=== PATIENT | female | born 1960 | race American Indian/Alaskan Native ===

== ENCOUNTER 2019-03-10 13:25 | Emergency (ER) | payer MEDICARE ==
--- NOTE | 2019-03-10 13:32 | Event Note ---
ED Screening Note Date of service: 03/10/19 Time: 13:29 ED Screening Note: Pt complains itchy, painful eye, and foreign body sensation x 4 days denies contacts unsure if foreign body could be in eye eye crusted shut this morning This initial assessment/diagnostic orders/clinical plan/treatment(s) is/are subject to change based on patients health status, clinical progression and re- assessment by fellow clinical providers in the ED. Further treatment and workup at subsequent clinical providers discretion. Patient/guardian urged not to elope from the ED as their condition may be serious if not clinically assessed and managed. Initial orders include: ACC
[2019-03-10] MEDS ORDERED: carvediloL 6.25 MG TAB PO ONE (16:10)
[2019-03-10] MEDS ORDERED: amLODIPine 5 MG TAB PO ONE (16:10)
[2019-03-10] MEDS ORDERED: ACETAMINOPHEN 325 MG TAB ONE ×2 (17:38→17:40)
[2019-03-10 18:00] VITALS: BP 158/61
--- NOTE | 2019-03-10 18:13 | Emergency Department Report ---
ED Eye Problem HPI - General Chief complaint: Eye Problems Stated complaint: RT EYE INJURY Time Seen by Provider: 03/10/19 13:29 Source: patient Mode of arrival: Ambulatory Limitations: No Limitations - History of Present Illness Initial comments: patient is a 58-year-old female presents emergency room with complaints of right eye irritation that began two days ago. She has associated right eye redness, right eye pain, drainage from the right eye, crusting. Occasionally her right eye feels blurry but she typically wears eyeglasses and does not have them on. Denies any contact lens use. denies getting anything into the eye. she also has a mild headache. She has a past medical history of hypertension and has not taken her medication and approximately 5 days. She states that she just moved here from [place] and did not bring her medications. She states that she takes amlodipine 10 mg daily, atorvastatin 40 mg daily, carvedilol 12.5 mg twice a day, Lasix 20 mg daily, insulin glargine 36 units at bedtime, metformin 1000 mg twice a day. - Related Data Previous Rx's Medication Instructions Recorded Last Taken Type AtorvaSTATin [Lipitor] 40 mg PO QHS #14 tab 03/10/19 Unknown Rx Erythromycin [Erythromycin Ophth 1 applicatio OU QID 7 Days #1 tube 03/10/19 Unknown Rx Oint] Furosemide [Lasix] 20 mg PO QDAY #14 tablet 03/10/19 Unknown Rx Insulin Glargine [Lantus VIAL] 36 units SUB-Q QHS #1 vial 03/10/19 Unknown Rx amLODIPine 10 mg PO DAILY #14 tab 03/10/19 Unknown Rx carvediloL [Coreg] 12.5 mg PO BID #28 tablet 03/10/19 Unknown Rx metFORMIN [Glucophage] 1,000 mg PO BID #28 tablet 03/10/19 Unknown Rx Allergies Allergy/AdvReac Type Severity Reaction Status Date / Time No Known Allergies Allergy Unverified 03/10/19 13:26 ED Review of Systems ROS: Stated complaint: RT EYE INJURY Other details as noted in HPI Comment: All other systems reviewed and negative ED Past Medical Hx - Past Medical History Previous Medical History?: Yes Hx Hypertension: Yes Hx Diabetes: Yes Additional medical history: Sleep apnea, CAD, Gastroparesis, - Surgical History Past Surgical History?: Yes Additional Surgical History: Open heart surgery 03-18-2006 - Social History Smoking Status: Never Smoker Substance Use Type: None - Medications Home Medications: Home Medications Medication Instructions Recorded Confirmed Last Taken Type AtorvaSTATin [Lipitor] 40 mg PO QHS #14 tab 03/10/19 Unknown Rx Erythromycin [Erythromycin Ophth 1 applicatio OU QID 7 Days #1 tube 03/10/19 Unknown Rx Oint] Furosemide [Lasix] 20 mg PO QDAY #14 tablet 03/10/19 Unknown Rx Insulin Glargine [Lantus VIAL] 36 units SUB-Q QHS #1 vial 03/10/19 Unknown Rx amLODIPine 10 mg PO DAILY #14 tab 03/10/19 Unknown Rx carvediloL [Coreg] 12.5 mg PO BID #28 tablet 03/10/19 Unknown Rx metFORMIN [Glucophage] 1,000 mg PO BID #28 tablet 03/10/19 Unknown Rx ED Physical Exam - General Limitations: No Limitations General appearance: alert, in no apparent distress - Head Head exam: Present: atraumatic, normocephalic - Eye Eye exam: Present: PERRL, EOMI, conjunctival injection (right). Absent: scleral icterus, nystagmus, periorbital swelling, periorbital tenderness - ENT ENT exam: Present: mucous membranes moist - Respiratory Respiratory exam: Present: normal lung sounds bilaterally. Absent: respiratory distress, wheezes, rales, rhonchi, stridor, chest wall tenderness, accessory muscle use, decreased breath sounds, prolonged expiratory - Cardiovascular Cardiovascular Exam: Present: regular rate, normal rhythm, normal heart sounds. Absent: systolic murmur, diastolic murmur, rubs, gallop - Neurological Exam Neurological exam: Present: alert, oriented X3 - Psychiatric Psychiatric exam: Present: normal affect, normal mood - Skin Skin exam: Present: warm, dry, intact ED Course Vital Signs 03/10/19 03/10/19 03/10/19 13:29 16:36 16:39 Temperature 98 F Pulse Rate 82 72 72 Respiratory 18 20 Rate Blood Pressure 201/104 187/86 Blood Pressure 187/86 [Right] O2 Sat by Pulse 98 Oximetry 03/10/19 17:59 Temperature Pulse Rate 65 Respiratory 20 Rate Blood Pressure Blood Pressure 158/61 [Right] O2 Sat by Pulse 100 Oximetry ED Medical Decision Making - Medical Decision Making patient is a 58-year-old female presents emergency room with complaints of right eye irritation that began two days ago. She has associated right eye redness, right eye pain, drainage from the right eye, crusting. Occasionally her right eye feels blurry but she typically wears eyeglasses and does not have them on. Denies any contact lens use. denies getting anything into the eye. she also has a mild headache. She has a past medical history of hypertension and has not taken her medication and approximately 5 days. She states that she just moved here from [place] and did not bring her medications. She states that she takes amlodipine 10 mg daily, atorvastatin 40 mg daily, carvedilol 12.5 mg twice a d ay, Lasix 20 mg daily, insulin glargine 36 units at bedtime, metformin 1000 mg twice a day. vitals with elevated blood pressure which improved upon administration of her home medications. on exam: right sided conjunctival injection, PERRL, EOMI. pt given refill of her home medications. pt given prescription for erythromycin ophthalmic ointment. Please use medication as prescribed. Wash your hands frequently. Avoid rubbing the eye. Please follow- up with a primary care doctor in the next 2-3 days for management of your chronic conditions. Please follow-up with an email marketing specialist in the next 2-3 days for a full eye exam and to prevent blindness. Return to the emergency room for any new or worsening symptoms. Critical care attestation.: If time is entered above; I have spent that time in minutes in the direct care of this critically ill patient, excluding procedure time. ED Disposition Clinical Impression: Elevated blood pressure reading, Medication refill Conjunctivitis Qualifiers: Conjunctivitis type: acute Acute conjunctivitis type: unspecified Laterality: right Qualified Code(s): H10.31 - Unspecified acute conjunctivitis, right eye Disposition: DC-01 TO HOME OR SELFCARE Is pt being admited?: No Does the pt Need Aspirin: No Condition: Stable Instructions: Conjunctivitis (ED) Additional Instructions: Please use medication as prescribed. Wash your hands frequently. Avoid rubbing the eye. Please follow-up with a primary care doctor in the next 2-3 days for management of your chronic conditions. Please follow-up with an email marketing specialist in the next 2-3 days for a full eye exam and to prevent blindness. Return to the emergency room for any new or worsening symptoms. Prescriptions: Insulin Glargine [Lantus VIAL] 36 units SUB-Q QHS #1 vial AtorvaSTATin [Lipitor] 40 mg PO QHS #14 tab amLODIPine 10 mg PO DAILY #14 tab carvediloL [Coreg] 12.5 mg PO BID #28 tablet Erythromycin [Erythromycin Ophth Oint] 1 applicatio OU QID 7 Days #1 tube metFORMIN [Glucophage] 1,000 mg PO BID #28 tablet Furosemide [Lasix] 20 mg PO QDAY #14 tablet Referrals: SILAS MEAD MD [Staff Physician] - 2-3 Days [facility] [Outside] - 2-3 Days [facility] [Provider Group] - 2-3 Days AFSANEH DIAZ MD [Staff Physician] - 2-3 Days [facility] [Provider Group] - 2-3 Days Time of Disposition: 18:12 Print Language: MOHAWK
== END 2019-03-10 18:25 | disposition home or self-care (01) ==
LOC: ED 13:25
DX: H10.9 Unspecified conjunctivitis (principal); I10 Essential (primary) hypertension; G47.30 Sleep apnea, unspecified; E11.43 Type 2 diabetes mellitus with diabetic autonomic (poly)neuropathy; K31.84 Gastroparesis; Z79.899 Other long term (current) drug therapy; Z76.0 Encounter for issue of repeat prescription

== ENCOUNTER 2020-01-22 12:32 | Emergency (ER) | payer MEDICARE ==
--- NOTE | 2020-01-22 12:47 | Event Note ---
ED Screening Note Date of service: 01/22/20 Time: 12:46 ED Screening Note: Patient complains of left-sided chest pain starting this morning History of CABG in 2017 and stent placement This initial assessment/diagnostic orders/clinical plan/treatment(s) is/are subject to change based on patients health status, clinical progression and re- assessment by fellow clinical providers in the ED. Further treatment and workup at subsequent clinical providers discretion. Patient/guardian urged not to elope from the ED as their condition may be serious if not clinically assessed and managed. Initial orders include: Labs Chest x-ray EKG
[2020-01-22 13:22] VITALS: BP 142/65
[2020-01-22 13:43] LABS: Basophils % (Auto) 0.6 % (0.0-1.8); Eosinophils # (Auto) 0.1 K/mm3 (0.0-0.4); Eosinophils % (Auto) 1.9 % (0.0-4.3); Hematocrit 36.2 % (30.3-42.9); Hemoglobin 11.8 gm/dl (10.1-14.3); Lymphocytes # (Auto) 2.2 K/mm3 (1.2-5.4); Lymphocytes % (Auto) 36.9 % (13.4-35.0); Mean Corpuscular HGB Conc 33 % (30-34); Mean Corpuscular Volume 88 fl (79-97); Monocytes # (Auto) 0.3 K/mm3 (0.0-0.8); Monocytes % (Auto) 5.7 % (0.0-7.3); Platelet Count 224 K/mm3 (140-440); Red Blood Count 4.14 M/mm3 (3.65-5.03); Red Cell Distribution Width 13.4 % (13.2-15.2)
[2020-01-22 14:03] LABS: Alanine Aminotransferase 10 units/L (7-56); Albumin 3.3 g/dL (3.9-5); BUN/Creatinine Ratio 13; Blood Urea Nitrogen 12 mg/dL (7-17); Calcium 9.1 mg/dL (8.4-10.2); Hemolysis Index 7
[2020-01-22 14:10] LABS: Bacteria,Urine 1+ /HPF (Negative); Bilirubin,Urine NEG (Negative); Blood,Urine NEG (Negative); Color,Urine Straw (Yellow); Mucus,Urine FEW /HPF; Protein,Urine <15 mg/dL mg/dL (Negative); Urobilinogen,Urine < 2.0 mg/dL (<2.0)
[2020-01-22] MEDS ORDERED: ACETAMINOPHEN 325 MG TAB PO ONE (15:13)
--- NOTE | 2020-01-22 15:30 | Cat Scan Report ---
CT HEAD WITHOUT CONTRAST INDICATION / CLINICAL INFORMATION: Headache and right sided sensory disturbance with facial tingling. TECHNIQUE: All CT scans at this location are performed using CT dose reduction for ALARA by means of automated e xposure control. COMPARISON: None available. FINDINGS: HEMORRHAGE: No evidence of intracranial hemorrhage or extra-axial fluid collection. EXTRA-AXIAL SPACES: Cortical sulci, sylvian fissures and basilar cisterns have an unremarkable appear ance. VENTRICULAR SYSTEM: The ventricular system is of normal size and configuration. CEREBRAL PARENCHYMA: No areas of abnormal brain parenchymal attenuation are identified. There is no i ndication of recent infarction. MIDLINE SHIFT OR HERNIATION: There is no mass effect. CEREBELLUM / BRAINSTEM: Brainstem and cerebellum have an unremarkable appearance. MIDLINE STRUCTURES:No abnormalities of the pituitary gland or pineal region are identified. INTRACRANIAL VESSELS:No abnormalities are identified on this noncontrast head CT. ORBITS: visualized portions of the orbits have an unremarkable appearance. SOFT TISSUES of HEAD: No significant abnormality. CALVARIUM: Evaluation of bone windows reveals no abnormalities. PARANASAL SINUSES / MASTOID AIR CELLS: Visualized portions of the right maxillary sinus are opacified . There is opacification of multiple right-sided ethmoid air cells and of the right frontal sinus. Th quang findings suggest the diagnosis of sinusitis secondary to occlusion of the right OMU. IMPRESSION: 1. No intracranial abnormality. 2. Evidence of right frontal, ethmoid and maxillary sinusitis. Signer Name: Estuardo Jacobson MD Signed: 01/22/2020 3:25 PM Workstation Name: [id number]
--- NOTE | 2020-01-22 15:58 | XRay Report ---
CHEST 2 VIEWS INDICATION: Chest Pain. COMPARISON: None. FINDINGS: Support devices: None. Heart: Stable mild cardiomegaly status post previous median sternotomy. Lungs/Pleura: No acute air space or interstitial disease. No significant pleural effusion. IMPRESSION: No acute findings. Signer Name: Darnell Islas MD Signed: 01/22/2020 3:54 PM Workstation Name: [id number]
== END 2020-01-23 12:49 | disposition left against medical advice (07) ==
LOC: ED 12:32
DX: R07.89 Other chest pain (principal); Z53.21 Procedure and treatment not carried out due to patient leaving prior to being seen by health care provider
CPT/HCPCS: 36415; 70450; 71046; 80053; 81001; 82962; 84484; 85025; 87086; 93005

== ENCOUNTER 2021-07-26 17:57 | Emergency (ER) | payer MEDICARE ==
[2021-07-26] MEDS ORDERED: SODIUM CHLORIDE 0.9% 1000 ML 1,000 ML IV ONE (20:27)
--- NOTE | 2021-07-26 21:00 | Emergency Department Report ---
ED Syncope HPI - General Chief Complaint: Syncope Stated Complaint: hyperglyc Time Seen by Provider: 07/26/21 19:35 - History of Present Illness Initial Comments: 60-year-old female with a history of seizure and CAD s/p CABG and DM who now presents with syncope episode that happened while she was shopping. According to patient she check her blood sugar at home and it was above 500 and gave as of 15 units of insulin only to start feeling woozy in front of the snack bar cashier. She turned around feeling that she needed to eat some candy and had a bit then slumped over. She denies any LOC but c/o neck pain and left sided head headache. No other modifying or associated factors reported. - Related Data Allergies/Adverse Reactions: Allergies No Known Allergies Allergy (Unverified 03/10/19 13:26) Home Medications: Ambulatory Orders AtorvaSTATin [Lipitor] 40 mg PO QHS #14 tab 03/10/19 Furosemide [Lasix] 20 mg PO QDAY #14 tablet 03/10/19 Insulin Glargine [Lantus VIAL] 36 units SUB-Q QHS #1 vial 03/10/19 amLODIPine 10 mg PO DAILY #14 tab 03/10/19 carvediloL [Coreg] 12.5 mg PO BID #28 tablet 03/10/19 metFORMIN [Glucophage] 1,000 mg PO BID #28 tablet 03/10/19 ED Review of Systems ROS: Stated complaint: hyperglyc Other details as noted in HPI Comment: All other systems reviewed and negative Cardiovascular: syncope Neurological: weakness ED Past Medical Hx - Past Medical History Hx Hypertension: Yes Hx Diabetes: Yes Additional medical history: Sleep apnea, CAD, Gastroparesis, - Surgical History Additional Surgical History: Open heart surgery 03-18-2006 - Social History Smoking Status: Never Smoker Substance Use Type: Alcohol - Medications Home Medications: Home Medications Medication Instructions Recorded Confirmed Last Taken Type AtorvaSTATin [Lipitor] 40 mg PO QHS #14 tab 03/10/19 07/26/21 07/26/21 Rx Furosemide [Lasix] 20 mg PO QDAY #14 tablet 03/10/19 07/26/21 07/26/21 Rx Insulin Glargine [Lantus VIAL] 36 units SUB-Q QHS #1 vial 03/10/19 07/26/21 07/26/21 Rx amLODIPine 10 mg PO DAILY #14 tab 03/10/19 07/26/21 07/26/21 Rx carvediloL [Coreg] 12.5 mg PO BID #28 tablet 03/10/19 07/26/21 07/26/21 Rx metFORMIN [Glucophage] 1,000 mg PO BID #28 tablet 03/10/19 07/26/21 07/26/21 Rx ED Physical Exam - General Limitations: No Limitations General appearance: alert, in no apparent distress - Eye Eye exam: Present: normal appearance Pupils: Present: normal accommodation - ENT ENT exam: Present: normal exam, normal orophraynx, mucous membranes moist - Neck Neck exam: Present: normal inspection, tenderness (posterior), full ROM. Absent: meningismus - Respiratory Respiratory exam: Present: normal lung sounds bilaterally. Absent: respiratory distress, accessory muscle use - Cardiovascular Cardiovascular Exam: Present: regular rate, normal rhythm, normal heart sounds - GI/Abdominal GI/Abdominal exam: Present: soft, normal bowel sounds. Absent: distended, tenderness - Extremities Exam Extremities exam: Present: normal inspection, normal capillary refill. Absent: full ROM, tenderness - Back Exam Back exam: Present: normal inspection. Absent: tenderness - Neurological Exam Neurological exam: Present: alert, oriented X3 - Psychiatric Psychiatric exam: Present: normal affect, normal mood ED Course Vital Signs 07/26/21 07/26/21 07/26/21 18:55 18:57 19:00 Temperature 98.0 F Pulse Rate 80 Respiratory 17 Rate Blood Pressure 118/59 118/59 Blood Pressure 118/59 [Left] O2 Sat by Pulse 100 97 100 Oximetry 07/26/21 07/26/21 07/26/21 19:16 19:30 19:46 Temperature Pulse Rate 76 75 71 Respiratory 11 L 13 10 L Rate Blood Pressure 118/59 113/64 113/64 Blood Pressure [Left] O2 Sat by Pulse 99 100 100 Oximetry 07/26/21 07/26/21 07/26/21 20:00 20:16 20:30 Temperature Pulse Rate 71 73 69 Respiratory 17 12 14 Rate Blood Pressure 108/63 108/63 128/68 Blood Pressure [Left] O2 Sat by Pulse 99 100 100 Oximetry 07/26/21 07/26/21 20:46 20:50 Temperature Pulse Rate 72 Respiratory 14 Rate Blood Pressure 128/68 Blood Pressure [Left] O2 Sat by Pulse 100 98 Oximetry - Reevaluation(s) Reevaluation #1: 07/26/21 21:04 Here with syncope episode--that could include differentials but not limited to h ypoglycemia, seizure, IA, stroke, and infectious process--so we will go ahead and order routine CBC, CMP, UA for infectious process and get a CT scan of the head for any intracranial abnormality with CT scan of the cervical for any neck injury considering tenderness in posterior neck. We will also rule out cardiac event with initial EKG and troponin. In the meantime we will give 1 L of IV fluid for hydration as this could also be dehydration as a cause. Reevaluation #2: 07/26/21 22:16 CT head scan noted with FINDINGS: No intracranial hemorrhage, mass or midline shift noted. No extra-axial fluid collection or suggestion of acute territorial infarction. Ventricular system and basilar cisterns are unremarkable. Visualized paranasal sinuses show near complete opacification of the right maxillary antrum which was noted on the prior CT from 2019. There is partial opacification of the right ethmoid air cells as well, also chronic. The remainder of the paranasal sinuses and mastoid air cells are grossly clear. No significant calvarial abnormality. No fracture noted. No soft tissue abnormality. IMPRESSION: 1. No acute intracranial abnormality. 2. Chronic opacification of the right ethmoid air cells and right maxillary antrum. CT cervical scan -- with no acute findings 07/26/21 22:21 With normal EKG, and cardiac enzyme and negative CT head and cervical with no acute findings--the presyncope is likely caused by hypoglycemia which was better with eating the candy--patient reassured and DC home to continue current medical treatment and warning given to return to emergency room if symptoms worsen ED Medical Decision Making - Lab Data Result diagrams: 07/26/21 20:49 07/26/21 20:49 - EKG Data -: EKG Interpreted by Me EKG shows normal: sinus rhythm Rate: normal - EKG Data Interpretation: normal EKG 07/26/21 22:20 EKG noted to be with normal sinus rhythm at a rate of 74 bpm, with normal QTC and no ST elevation or depression and is normal ECG. Critical care attestation.: If time is entered above; I have spent that time in minutes in the direct care of this critically ill patient, excluding procedure time. ED Disposition Clinical Impression: Hypoglycemia Episode of syncope Qualifiers: Syncope type: unspecified Qualified Code(s): R55 - Syncope and collapse Disposition: 01 HOME / SELF CARE / HOMELESS Is pt being admited?: No Does the pt Need Aspirin: No Condition: Stable Instructions: Syncope (ED), Near-Syncope, [id number], Hypoglycemia, [id number] Additional Instructions: Increase your daily fluid to help your hydration Call and schedule follow-up with your primary doctor in the next 3 to 5 days for progress Please do not hesitate to call or return to emergency room if your symptoms worsen Referrals: FESTUS COBB MD [Referring] - 3-5 Days Time of Disposition: 22:22
[2021-07-26 21:03] LABS: Basophils # (Auto) 0.1 K/mm3 (0.0-0.1); Basophils % (Auto) 0.8 % (0.0-1.8); Eosinophils # (Auto) 0.2 K/mm3 (0.0-0.4); Eosinophils % (Auto) 3.1 % (0.0-4.3); Hematocrit 36.8 % (30.3-42.9); Hemoglobin 11.6 gm/dl (10.1-14.3); Lymphocytes # (Auto) 2.1 K/mm3 (1.2-5.4); Lymphocytes % (Auto) 33.4 % (13.4-35.0); Mean Corpuscular HGB Conc 32 % (30-34); Mean Corpuscular Volume 86 fl (79-97); Monocytes # (Auto) 0.5 K/mm3 (0.0-0.8); Monocytes % (Auto) 8.3 % (0.0-7.3); Platelet Count 242 K/mm3 (140-440); Red Blood Count 4.27 M/mm3 (3.65-5.03); Red Cell Distribution Width 12.9 % (13.2-15.2)
[2021-07-26 21:20] LABS: Alanine Aminotransferase 39 units/L (7-56); BUN/Creatinine Ratio 17; Blood Urea Nitrogen 17 mg/dL (7-17); Calcium 9.7 mg/dL (8.4-10.2); Hemolysis Index 19
--- NOTE | 2021-07-26 21:25 | Cat Scan Report ---
CT head/brain wo con INDICATION / CLINICAL INFORMATION: fall. TECHNIQUE: Axial CT imaging of the brain was obtained without contrast. Coronal and sagittal reformatted imaging obtained and reviewed. All CT scans at this location are performed using CT dose reduction for ALAR A by means of automated exposure control. COMPARISON: Prior head CT 01/22/2020 FINDINGS: No intracranial hemorrhage, mass or midline shift noted. No extra-axial fluid collection or suggestio n of acute territorial infarction. Ventricular system and basilar cisterns are unremarkable. Visualized paranasal sinuses show near complete opacification of the right maxillary antrum which was noted on the prior CT from 2019. There is partial opacification of the right ethmoid air cells as we ll, also chronic. The remainder of the paranasal sinuses and mastoid air cells are grossly clear. No significant calvarial abnormality. No fracture noted. No soft tissue abnormality. IMPRESSION: 1. No acute intracranial abnormality. 2. Chronic opacification of the right ethmoid air cells and right maxillary antrum. Signer Name: Shefali Posadas MD Signed: 07/26/2021 9:20 PM Workstation Name: [id number]
--- NOTE | 2021-07-26 21:29 | Cat Scan Report ---
CT cervical spine wo con INDICATION / CLINICAL INFORMATION: trauma. TECHNIQUE: Axial CT imaging of cervical spine was obtained without contrast. Coronal and sagittal reformatted im aging obtained and reviewed. All CT scans at this location are performed using CT dose reduction for ALARA by means of automated exposure control. COMPARISON: None available. FINDINGS: Vertebral body heights are maintained. There is mild multilevel degenerative disc disease. Prominent spondylitic changes noted from C2 through C5. Alignment is normal. No fracture noted. Surrounding soft tissues are unremarkable. Visualized lung apices are clear. IMPRESSION: 1. No cervical spine fracture or traumatic malalignment. 2. Moderate spondylitic change. Signer Name: Shefali Posadas MD Signed: 07/26/2021 9:25 PM Workstation Name: [id number]
[2021-07-26] MEDS ORDERED: KETOROLAC 30 MG/1 ML INJ IV ONE (21:36)
[2021-07-26 22:55] VITALS: BP 142/62
--- NOTE | 2021-07-29 11:55 | Electrocardiograph Report ---
[facility] Test Date: 2021-07-26 Test Time: 19:03:08 Pat Name: PATTI DE GUZMAN Department: Room: Gender: F Mailroom Messenger: JENNIFER : [id number] Requested By: SHANNAN SIDHU Order Number: [id number] Reading MD: Savage Eddy Measurements Intervals [place] Rate: 74 P: 28 CT: 148 QRS: 39 QRSD: 77 T: 64 QT: 375 QTc: 415 Interpretive Statements Sinus rhythm No previous ECG available for comparison Electronically Signed On 07-29-2021 11:54:40 EDT by Savage Eddy
== END 2021-07-26 22:55 | disposition home or self-care (01) ==
LOC: ED 17:57
DX: E11.649 Type 2 diabetes mellitus with hypoglycemia without coma (principal); R55 Syncope and collapse; I10 Essential (primary) hypertension; I25.10 Atherosclerotic heart disease of native coronary artery without angina pectoris; G47.30 Sleep apnea, unspecified; Z98.890 Other specified postprocedural states
CPT/HCPCS: 36415; 70450; 72125; 80053; 82962; 84484; 85025; 93005; 96361; 96374; 99284; J1885; J7030

== ENCOUNTER 2021-08-03 20:04 | Observation (INO) | payer MEDICARE ==
[2021-08-03] MEDS ORDERED: NITROGLYCERIN 2% OINT 1 GM TP ONE (21:19)
--- NOTE | 2021-08-03 21:20 | XRay Report ---
CHEST 1 VIEW 08/03/2021 8:12 PM INDICATION / CLINICAL INFORMATION: Chest Pain. COMPARISON: 01/22/20. FINDINGS: SUPPORT DEVICES: None. HEART / MEDIASTINUM: Median sternotomy. Normal heart size and pulmonary vasculature. The aorta is nor mal in caliber. LUNGS / PLEURA: No significant pulmonary or pleural abnormality. No pneumothorax. ADDITIONAL FINDINGS: Mild degenerative changes involving both shoulders, greater on the right. IMPRESSION: No acute abnormality or significant change. Signer Name: Cody Winn MD Signed: 08/03/2021 9:15 PM Workstation Name: [id number]
--- NOTE | 2021-08-03 21:23 | Emergency Department Report ---
HPI - General Chief Complaint: Hypoglycemia Time Seen by Provider: 08/03/21 20:51 - HPI HPI: 3 hours prior to arrival the patient began experiencing headache with malaise and chest discomfort that she describes as a pressure in the middle of her chest that does not radiate associated with nausea diaphoresis and shortness of breath. She denies vomiting fever chills focal weakness headache or any other associated symptoms. The patient has a history of coronary artery disease with 2 stents and took her Plavix today and got [address] to the emergency department via EMS. EMS also gave her 1 nitroglycerin pill that made her feel better with the pain now being from moderate to mild. Nothing makes the pain worse and nitroglycerin makes pain better. ED Past Medical Hx - Past Medical History Previous Medical History?: Yes Hx Hypertension: Yes Hx Diabetes: Yes Additional medical history: Sleep apnea, CAD, Gastroparesis, 2 coronary stents - Surgical History Past Surgical History?: Yes Additional Surgical History: Open heart surgery 03-18-2006 - Social History Smoking Status: Never Smoker Substance Use Type: Alcohol - Medications Home Medications: Home Medications Medication Instructions Recorded Confirmed Last Taken Type AtorvaSTATin [Lipitor] 40 mg PO QHS #14 tab 03/10/19 07/26/21 07/26/21 Rx Furosemide [Lasix] 20 mg PO QDAY #14 tablet 03/10/19 07/26/21 07/26/21 Rx Insulin Glargine [Lantus VIAL] 36 units SUB-Q QHS #1 vial 03/10/19 07/26/21 07/26/21 Rx amLODIPine 10 mg PO DAILY #14 tab 03/10/19 07/26/21 07/26/21 Rx carvediloL [Coreg] 12.5 mg PO BID #28 tablet 03/10/19 07/26/21 07/26/21 Rx metFORMIN [Glucophage] 1,000 mg PO BID #28 tablet 03/10/19 07/26/21 07/26/21 Rx ED Review of Systems ROS: Stated complaint: HYPERGLYCEMIA, CP Other details as noted in HPI All other systems reviewed and negative. Physical Exam - Physical Exam Vital Signs: Vital Signs 08/03/21 08/03/21 08/03/21 20:48 20:55 21:01 Temperature 98.4 F Pulse Rate 75 72 Respiratory 13 17 Rate Blood Pressure 115/47 Blood Pressure 115/47 [Left] O2 Sat by Pulse 100 100 Oximetry 08/03/21 21:02 Temperature Pulse Rate Respiratory Rate Blood Pressure Blood Pressure [Left] O2 Sat by Pulse 98 Oximetry Physical Exam: Physical Exam: Constitutional: AAOX3. No acute distress. No diaphoresis. HENT: Normocephalic. Pupils equal and reactive. No throat edema or erythema. Neck: No neck rigidity or tenderness. Cardiovascular: Heart sounds: No murmur. Normal rate and regular rhythm. Pulses: Intact distal pulses. Lungs: No wheezing or rales. Chest wall: No tenderness. Abdominal: No distension. No mass/pulsatile mass. No abdominal tenderness, guarding nor rebound. Back: No CVA TTP. Musculoskeletal: Normal range of motion. No edema, No calf TTP. Skin: Warm and dry. Neurological: Alert and oriented to person, place, and time. Psychiatric: Mood and affect normal. Normal cognition and memory. Normal j udgement. ED Course Vital Signs 08/03/21 08/03/21 08/03/21 20:48 20:55 21:01 Temperature 98.4 F Pulse Rate 75 72 Respiratory 13 17 Rate Blood Pressure 115/47 Blood Pressure 115/47 [Left] O2 Sat by Pulse 100 100 Oximetry 08/03/21 21:02 Temperature Pulse Rate Respiratory Rate Blood Pressure Blood Pressure [Left] O2 Sat by Pulse 98 Oximetry - Reevaluation(s) Reevaluation #1: 08/03/21 21:22 EKG done at 2020 shows a rate of 75, normal. The rhythm is sinus rhythm, normal. There are no ST or T wave abnormalities. ED Medical Decision Making - Lab Data Result diagrams: 08/03/21 21:15 08/03/21 21:15 Critical care attestation.: If time is entered above; I have spent that time in minutes in the direct care of this critically ill patient, excluding procedure time. ED Disposition Clinical Impression: Chest pain Disposition: 02 SHORT TERM HOSPITAL Is pt being admited?: Yes Does the pt Need Aspirin: No Condition: Stable Instructions: Nonspecific Chest Pain, Adult
[2021-08-03 21:31] LABS: Basophils % (Auto) 0.8 % (0.0-1.8); Eosinophils # (Auto) 0.2 K/mm3 (0.0-0.4); Eosinophils % (Auto) 3.9 % (0.0-4.3); Hematocrit 32.6 % (30.3-42.9); Hemoglobin 10.6 gm/dl (10.1-14.3); Mean Corpuscular HGB Conc 33 % (30-34); Mean Corpuscular Volume 86 fl (79-97); Monocytes # (Auto) 0.4 K/mm3 (0.0-0.8); Monocytes % (Auto) 7.2 % (0.0-7.3); Platelet Count 260 K/mm3 (140-440); Red Blood Count 3.79 M/mm3 (3.65-5.03); Red Cell Distribution Width 13.4 % (13.2-15.2)
[2021-08-03 21:57] LABS: Alanine Aminotransferase 20 units/L (7-56); Albumin 3.3 g/dL (3.9-5); BUN/Creatinine Ratio 21; Blood Urea Nitrogen 25 mg/dL (7-17); Calcium 8.7 mg/dL (8.4-10.2); Hemolysis Index 11
[2021-08-04] MEDS ORDERED: traMADol 50 MG TAB PO PRN (00:21)
[2021-08-04] MEDS ORDERED: MORPHINE 2 MG/1 ML INJ IV PRN (00:21)
[2021-08-04] MEDS ORDERED: NITROGLYCERIN 0.4 MG TAB SUBL SL PRN (00:21)
[2021-08-04] MEDS ORDERED: ACETAMINOPHEN 325 MG TAB PO PRN (00:21)
[2021-08-04] MEDS ORDERED: DEXTROSE 50% IN WATER (25GM) 50 ML SYRINGE IV PRN (00:21)
--- NOTE | 2021-08-04 00:29 | History and Physical Report ---
History of Present Illness Date of examination: 08/04/21 Date of admission: 08/04/21 Chief complaint: Chest pain History of present illness: 60 years old female with past medical history of hypertension, CAD, diabetes, high cholesterol was brought to the emergency room because of 3 hours prior to arrival the patient began experiencing headache with malaise and chest discomfort that she describes as a pressure in the middle of her chest that does not radiate associated with nausea diaphoresis and shortness of breath. She denies vomiting fever chills focal weakness headache or any other associated symptoms. The patient has a history of coronary artery disease with 2 stents and took her Plavix today and got [address] to the emergency department via EMS. EMS also gave her 1 nitroglycerin pill that made her feel better with the pain now being from moderate to mild. Nothing makes the pain worse and nitroglycerin makes pain better. In the emergency room initial cardiac enzyme is negative troponin is 0.010 we will going to admit the patient we will do the serial cardiac enzyme. We will put the patient on chest pain pathway we also do a Lexiscan Past History Past Medical History: CAD, diabetes, hypertension, hyperlipidemia Past Surgical History: Other (To coronary stent Open heart surgery 03-18-2006) Social history: no significant social history Family history: hypertension Medications and Allergies Allergies Allergy/AdvReac Type Severity Reaction Status Date / Time No Known Allergies Allergy Unverified 03/10/19 13:26 Home Medications Medication Instructions Recorded Confirmed Last Taken Type AtorvaSTATin [Lipitor] 40 mg PO QHS #14 tab 03/10/19 07/26/21 07/26/21 Rx Furosemide [Lasix] 20 mg PO QDAY #14 tablet 03/10/19 07/26/21 07/26/21 Rx Insulin Glargine [Lantus VIAL] 36 units SUB-Q QHS #1 vial 03/10/19 07/26/21 07/26/21 Rx amLODIPine 10 mg PO DAILY #14 tab 03/10/19 07/26/21 07/26/21 Rx carvediloL [Coreg] 12.5 mg PO BID #28 tablet 03/10/19 07/26/21 07/26/21 Rx metFORMIN [Glucophage] 1,000 mg PO BID #28 tablet 03/10/19 07/26/21 07/26/21 Rx Active Meds: Active Medications Acetaminophen (Acetaminophen 325 Mg Tab) 650 mg PO Q6H PRN PRN Reason: Pain, Mild (1-3) Aspirin (Aspirin Ec 325 Mg Tab) 325 mg PO QDAY [facility] Atorvastatin Calcium (Atorvastatin 40 Mg Tab) 40 mg PO QHS [facility] Dextrose (Dextrose 50% In Water (25gm) 50 Ml Syringe) 50 ml IV Q30MIN PRN; Protocol PRN Reason: Hypoglycemia Sodium Chloride (Nacl 0.9% 1000 Ml) 1,000 mls @ 100 mls/hr IV DIRECT [facility] Insulin Human Lispro (Insulin Lispro 100 Unit/Ml) 0 unit SUB-Q Q6HR [facility]; Protocol Morphine Sulfate (Morphine 4 Mg/1 Ml Inj) 2 mg IV Q5MIN PRN PRN Reason: Chest Pain unrelieved by NTG Nitroglycerin (Nitroglycerin 0.4 Mg Tab Subl) 0.4 mg SL Q5M PRN PRN Reason: Chest Pain Pantoprazole Sodium (Pantoprazole 40 Mg Tab) 40 mg PO QDAY [facility] Sodium Chloride (Sodium Chloride 0.9% 10 Ml Flush Syringe) 10 ml IV PRN PRN PRN Reason: LINE FLUSH Tramadol HCl (Tramadol 50 Mg Tab) 50 mg PO Q6H PRN PRN Reason: Pain, Moderate (4-6) Review of Systems All systems: negative Constitutional: malaise, other (Headache) Cardiovascular: chest pain, shortness of breath Respiratory: shortness of breath Exam - Constitutional Vitals: Temp Pulse Resp BP Pulse Ox 98.4 F 81 11 L 126/64 100 08/03/21 20:55 08/03/21 23:31 08/03/21 23:31 08/03/21 23:31 08/03/21 23:31 General appearance: Present: no acute distress, well-nourished - EENT Eyes: Present: PERRL ENT: hearing intact, clear oral mucosa - Neck Neck: Present: supple, normal ROM - Respiratory Respiratory effort: normal Respiratory: bilateral: diminished - Cardiovascular Heart Sounds: Present: S1 & S2. Absent: rub, click - Extremities Extremities: pulses symmetrical, No edema Peripheral Pulses: within normal limits - Abdominal General gastrointestinal: Present: soft, non-tender, non-distended, normal bowel sounds Female genitourinary: Present: normal - Integumentary Integumentary: Present: clear, warm, dry - Musculoskeletal Musculoskeletal: gait normal, strength equal bilaterally - Psychiatric Psychiatric: appropriate mood/affect, intact judgment & insight - Neurologic Neurologic: CNII-XII intact, moves all extremities HEART Score - HEART Score Troponin: Troponin T < 0.010 ng/mL (0.00-0.029) 08/03/21 21:15 Results - Labs CBC & Chem 7: 08/03/21 21:15 08/03/21 21:15 Labs: Laboratory Last Values WBC 6.0 K/mm3 (4.5-11.0) 08/03/21 21:15 RBC 3.79 M/mm3 (3.65-5.03) 08/03/21 21:15 Hgb 10.6 gm/dl (10.1-14.3) 08/03/21 21:15 Hct 32.6 % (30.3-42.9) 08/03/21 21:15 MCV 86 fl (79-97) 08/03/21 21:15 MCH 28 pg (28-32) 08/03/21 21:15 MCHC 33 % (30-34) 08/03/21 21:15 RDW 13.4 % (13.2-15.2) 08/03/21 21:15 Plt Count 260 K/mm3 (140-440) 08/03/21 21:15 Lymph % (Auto) 33.0 % (13.4-35.0) 08/03/21 21:15 Worth % (Auto) 7.2 % (0.0-7.3) 08/03/21 21:15 Eos % (Auto) 3.9 % (0.0-4.3) 08/03/21 21:15 Baso % (Auto) 0.8 % (0.0-1.8) 08/03/21 21:15 Lymph # (Auto) 2.0 K/mm3 (1.2-5.4) 08/03/21 21:15 Worth # (Auto) 0.4 K/mm3 (0.0-0.8) 08/03/21 21:15 Eos # (Auto) 0.2 K/mm3 (0.0-0.4) 08/03/21 21:15 Baso # (Auto) 0.0 K/mm3 (0.0-0.1) 08/03/21 21:15 Seg Neutrophils % 55.1 % (40.0-70.0) 08/03/21 21:15 Seg Neutrophils # 3.3 K/mm3 (1.8-7.7) 08/03/21 21:15 Sodium 139 mmol/L (137-145) 08/03/21 21:15 Potassium 4.0 mmol/L (3.6-5.0) 08/03/21 21:15 Chloride 108.1 mmol/L (98-107) H 08/03/21 21:15 Carbon Dioxide 20 mmol/L (22-30) L 08/03/21 21:15 Anion Gap 15 mmol/L 08/03/21 21:15 BUN 25 mg/dL (7-17) H 08/03/21 21:15 Creatinine 1.2 mg/dL (0.6-1.2) 08/03/21 21:15 Estimated GFR 56 ml/min 08/03/21 21:15 BUN/Creatinine Ratio 21 % 08/03/21 21:15 Glucose 223 mg/dL (65-100) H 08/03/21 21:15 POC Glucose 189 mg/dL (70-105) H 08/03/21 20:58 Calcium 8.7 mg/dL (8.4-10.2) 08/03/21 21:15 Total Bilirubin < 0.20 mg/dL (0.1-1.2) 08/03/21 21:15 AST 17 units/L (5-40) 08/03/21 21:15 ALT 20 units/L (7-56) 08/03/21 21:15 Alkaline Phosphatase 92 units/L (35-129) 08/03/21 21:15 Troponin T < 0.010 ng/mL (0.00-0.029) 08/03/21 21:15 NT-Pro-B Natriuret Pep 244.4 pg/mL (0-900) 08/03/21 21:15 Total Protein 6.1 g/dL (6.3-8.2) L 08/03/21 21:15 Albumin 3.3 g/dL (3.9-5) L 08/03/21 21:15 Albumin/Globulin Ratio 1.2 % 08/03/21 21:15 - Imaging and Cardiology Chest x-ray: report reviewed Assessment and Plan VTE prophylaxis?: Chemical Plan of care discussed with patient/family: Yes - Patient Problems (1) ACS (acute coronary syndrome) Current Visit: Yes Status: Acute Plan to address problem: Admit the patient to the medical telemetry. Aspirin 325 mg p.o. daily. Lipitor 40 mg p.o. daily. Nitroglycerin as needed. We do the serial cardiac enzymes. We also do a Lexiscan. If needed consult cardiology in the morning (2) Diabetes Current Visit: Yes Status: Acute Plan to address problem: Accu-Chek every 6 hours with moderate dose Humalog coverage. Diabetic education. Recheck BMP in the morning (3) Hypertension Current Visit: Yes Status: Acute Plan to address problem: Amlodipine 10 mg p.o. daily. Hydralazine 10 mg IV every 6 hours as needed. We continue the home medication (4) High cholesterol Current Visit: Yes Status: Acute Plan to address problem: Peter 40 mg daily. We recheck the lipid panel. (5) CAD (coronary artery disease) Current Visit: Yes Status: Acute Plan to address problem: Aspirin 325 mg p.o. daily. Lipitor 40 mg p.o. daily. Coreg 12.5 mg p.o. twice daily (6) Hypoglycemia Current Visit: No Status: Acute Plan to address problem: Patient actually hyperglycemic. We will put the patient on insulin sliding scale Humalog coverage moderate dose coverage as. Diabetic education (7) DVT prophylaxis Current Visit: Yes Status: Acute Plan to address problem: Heparin 5000 units subcu every 12 hours for DVT prophylaxis. Protonix 40 mg p.o. daily for GI prophylaxis. Patient is a full code
[2021-08-04] MEDS ORDERED: SODIUM CHLORIDE 0.9% 1000 ML 1,000 ML IV SCH (00:30)
[2021-08-04 07:28] LABS: Basophils # (Auto) 0.1 K/mm3 (0.0-0.1); Eosinophils # (Auto) 0.2 K/mm3 (0.0-0.4); Eosinophils % (Auto) 3.8 % (0.0-4.3); Hematocrit 33.6 % (30.3-42.9); Hemoglobin 10.6 gm/dl (10.1-14.3); Lymphocytes # (Auto) 2.3 K/mm3 (1.2-5.4); Lymphocytes % (Auto) 43.1 % (13.4-35.0); Mean Corpuscular HGB Conc 32 % (30-34); Mean Corpuscular Volume 87 fl (79-97); Monocytes # (Auto) 0.5 K/mm3 (0.0-0.8); Monocytes % (Auto) 8.6 % (0.0-7.3); Platelet Count 251 K/mm3 (140-440); Red Blood Count 3.89 M/mm3 (3.65-5.03); Red Cell Distribution Width 13.4 % (13.2-15.2)
[2021-08-04] MEDS ORDERED: REGADENOSON 0.4 MG/5 ML INJ IV ONE (07:30)
[2021-08-04 07:54] LABS: BUN/Creatinine Ratio 25; Blood Urea Nitrogen 28 mg/dL (7-17); Calcium 8.7 mg/dL (8.4-10.2); Hemolysis Index 8
[2021-08-04] MEDS ORDERED: carvediloL 12.5 MG TAB PO SCH (08:00)
[2021-08-04] MEDS ORDERED: FUROSEMIDE 20 MG TAB PO SCH (10:00)
[2021-08-04] MEDS ORDERED: amLODIPine 10 MG TAB PO SCH (10:00)
[2021-08-04] MEDS ORDERED: HEPARIN 5,000 UNIT/1 ML VIAL SUB-Q SCH (10:00)
[2021-08-04] MEDS ORDERED: PANTOPRAZOLE 40 MG TAB PO SCH (10:00)
--- NOTE | 2021-08-04 10:43 | Electrocardiograph Report ---
[facility] Test Date: 2021-08-03 Test Time: 20:21:39 Pat Name: PATTI DE GUZMAN Department: Room: A474 Gender: F Therapist Phys: MARKO : [id number] Requested By: VIBHA HA Order Number: [id number] Reading MD: Kaleb Paz Measurements Intervals [place] Rate: 75 P: 32 [place]: 136 QRS: 70 QRSD: 88 T: 37 QT: 398 QTc: 445 Interpretive Statements Sinus rhythm Compared to ECG 07/26/2021 19:03:08 No significant changes Electronically Signed On 08-04-2021 10:43:14 EDT by Kaleb Paz
[2021-08-04 12:35] VITALS: BP 153/66
[2021-08-04] MEDS: INSULIN LISPRO 100 UNIT/ML SUB-Q SCH ×2 (12:45→12:59)
--- NOTE | 2021-08-04 14:39 | Discharge Summary ---
Providers - Providers Date of Admission: 08/04/21 00:21 Date of discharge: 08/04/21 Attending physician: SUSHILA ESPINOZA MD 08/04/21 Consult to Cardiac Rehabilitation [CONS] Routine Reason For Exam: Phase I 08/04/21 00:21 Consult to Dietitian/Nutrition [CONS] Routine Physician Instructions: Reason For Exam: Reason for Consult: Diet education Primary care physician: PSYCHOLOGIST CHIEF Hospitalization Reason for admission: Chest painruled out, musculoskeletal pain Condition: Stable Pertinent studies: Reviewed. Procedures: Myocardial stress test Hospital course: Patient is a 60-year-old female past medical history of hypertension, sleep apnea, CAD status post CABG (2006) and PCI x2, and insulin-dependent type 2 diabetes mellitus with hyperglycemia who presented to the ED with chest pressure that does not radiate to her chin, shoulder, arm, or back. Patient endorsed her chest pressure being associated with nausea, diaphoresis, and shortness of breath. Patient endorsed taking her Plavix and [address] to the emergency department in addition to 1 nitroglycerin. With further questioning, the patient endorsed not being compliant with her medications. In the ED patient was found to be hemodynamically stable with nonspecific ST changes on EKG, unremarkable troponins x2, and stable vitals. Patient was admitted for management of chest pain work-up. Cardiology was consulted, and the patient underwent myocardial stress test that was found to be unremarkable. The patient was counseled at length about the importance of medication compliance, and the hospitalist set up daily alarms on her phone. Due to concerns for hypoglycemia (based on the patient's description after taking insulin at home), the patient was counseled to hold her insulin administration and to follow-up with her PCP this week. The patient expressed understanding. Patient is medically clear for discharge. Disposition: 01 HOME / SELF CARE / HOMELESS Final Discharge Diagnosis (Prints w/discharge instructions): Musculoskeletal pain, GERD, insulin-dependent type 2 diabetes mellitus with hyperglycemia, hypertension, hyperlipidemia, medication noncompliance, CAD status post PCI x2 Time spent for discharge: 45 min Core Measure Documentation - Palliative Care Palliative Care/ Comfort Measures: Not Applicable - Core Measures Any of the following diagnoses?: history only Exam - Constitutional Vitals: Temp Pulse Resp BP Pulse Ox 97.5 F L 65 18 153/66 100 08/04/21 11:10 08/04/21 11:10 08/04/21 11:10 08/04/21 11:10 08/04/21 11:10 General appearance: Present: no acute distress, well-nourished - EENT Eyes: Present: PERRL, EOM intact ENT: hearing intact, clear oral mucosa, dentition normal - Neck Neck: Present: supple, normal ROM - Respiratory Respiratory effort: normal Respiratory: bilateral: diminished - Cardiovascular Rhythm: regular Heart Sounds: Present: S1 & S2 - Extremities Extremities: no ischemia, pulses intact, pulses symmetrical, No edema, normal temperature, normal color, Full ROM Peripheral Pulses: within normal limits - Abdominal General gastrointestinal: Present: soft, non-tender, non-distended, normal bowel sounds Female genitourinary: Present: deferred - Rectal Rectal Exam: deferred - Integumentary Integumentary: Present: clear, warm, dry - Musculoskeletal Musculoskeletal: strength equal bilaterally - Psychiatric Psychiatric: appropriate mood/affect, cooperative, other (Low insight regarding medical conditions) - Neurologic Neurologic: CNII-XII intact, moves all extremities - Allied Health Allied health notes reviewed: nursing Plan Activity: advance as tolerated Diet: low salt, diabetic Additional Instructions: Patient is a 60-year-old female past medical history of hypertension, sleep apnea, CAD status post CABG (2006) and PCI x2, and insulin- dependent type 2 diabetes mellitus with hyperglycemia who presented to the ED with chest pressure that does not radiate to her chin, shoulder, arm, or back. Patient endorsed her chest pressure being associated with nausea, diaphoresis, and shortness of breath. Patient endorsed taking her Plavix and [address] to the emergency department in addition to 1 nitroglycerin. With further questioning, the patient endorsed not being compliant with her medications. In the ED patient was found to be hemodynamically stable with nonspecific ST changes on EKG, unremarkable troponins x2, and stable vitals. Patient was admitted for management of chest pain work-up. Cardiology was consulted, and the patient underwent myocardial stress test that was found to be unremarkable. The patient was counseled at length about the importance of medication compliance, and the hospitalist set up daily alarms on her phone. Due to concerns for hypoglycemia (based on the patient's description after taking insulin at home), the patient was counseled to hold her insulin adminis tration and to follow-up with her PCP this week. The patient expressed understanding. Patient is medically clear for discharge. Care Plan Goals: Patient is medically clear for discharge. Assessment: Patient is a 60-year-old female past medical history of hypertension, sleep apnea, CAD status post CABG (2006) and PCI x2, and insulin-dependent type 2 diabetes mellitus with hyperglycemia who presented to the ED with chest pressure that does not radiate to her chin, shoulder, arm, or back. Patient endorsed her chest pressure being associated with nausea, diaphoresis, and shortness of breath. Patient endorsed taking her Plavix and [address] to the emergency department in addition to 1 nitroglycerin. With further questioning, the patient endorsed not being compliant with her medications. In the ED patient was found to be hemodynamically stable with nonspecific ST changes on EKG, unremarkable troponins x2, and stable vitals. Patient was admitted for management of chest pain work-up. Cardiology was consulted, and the patient underwent myocardial stress test that was found to be unremarkable. The patient was counseled at length about the importance of medication compliance, and the hospitalist set up daily alarms on her phone. Due to concerns for hypoglycemia (based on the patient's description after taking insulin at home), the patient was counseled to hold her insulin administration and to follow-up with her PCP this week. The patient expressed understanding. Patient is medically clear for discharge. Follow up with: PRIMARY CARE, [Primary Care Provider] - 3-5 Days Prescriptions: AtorvaSTATin [Lipitor] 40 mg PO QHS #30 tab amLODIPine 10 mg PO DAILY #14 tab carvediloL [Coreg] 12.5 mg PO BID #60 tablet metFORMIN [Glucophage] 1,000 mg PO BID #60 tablet Aspirin EC [Halfprin EC] 81 mg PO QDAY #30 tablet Furosemide [Lasix TAB] 20 mg PO QDAY #30 tablet Pantoprazole [Protonix TAB] 40 mg PO QDAY #30 tablet
[2021-08-04] MEDS ORDERED: INSULIN REGULAR, HUMAN 100 UNITS/1 ML SUB-Q ONE (15:18)
--- NOTE | 2021-08-05 08:56 | Nuclear Medicine Report ---
APPROVED REPORT Exam: Nuclear Stress Test Indication: Chest pain [facility] #: A467 Ht: 5 ft 2 in Wt: 138 lbs BSA: 1.63 m2 HR: 55 bpmBP: 154/66 mmHgBMI: 25.23 Rhythm: Sinus Bradycardia Stress Test Details Stress Test: Pharmacologic stress testing performed using 0.4 mg of regadenoson per 5 mL given IV over 10 seconds. Reason for pharmacologic stress test: physical limitation. HR Resting HR: 56 bpm Max HR Achieved: 108 bpm Max Heart Rate (APMHR): 162.867825 bpm Target HR (85% APMHR): 137.870814 bpm % of APMHR: 66.67 HR response to stress: Normal HR response to stress BP Resting BP: 130/66 mmHg Max BP: 154/82 mmHg Recovery BP: 139/71 mmHg BP response to stress: Normal blood pressure response to stress. ECG Resting ECG: Sinus Bradycardia Stress ECG: Sinus Tachycardia Arrhythmia: None Recovery ECG: Sinus Rhythm Recovery Arrhythmia: None Clinical Reason for Termination: Completed protocol Stress Symptoms: None NM EXAM: Myocardial Perfusion REST/STRESS Imaging Protocol: Rest Tc-99m/Stress Tc-99m 1 day Resting Data Rest SPECT myocardial perfusion imaging was performed in supine position 45 minutes following the intravenous injection of 10 mCi of Tc-99m Myoview. Time of rest injection: 0700 Pharmacologic Stress Pharmacologic stress test was performed by injecting Regadenoson 0.4 mg IV push followed by the intravenous injection of 28 mCi of Tc-99m Myoview. Time of stress injection: 09:23:41 Gated Stress SPECT was performed 30 minutes after stress injection. The images were gated to evaluate regional wall motion and calculate left ventricular ejection fraction. Study Quality Study: excellent Lung Uptake: Normal Study Data TID = 1.15. Perfusion Wall Motion The rest and stress images show normal left ventricular wall motion. Nuclear Conclusion ECG Findings: negative for ischemia Clinical Findings: negative for ischemia Nuclear Findings: negative for ischemia Exercise Capacity: not assessed Left Ventricular Function: normal Normal study. No scintigraphic evidence for myocardial ischemia or scar. Normal left ventricular size and function with no regional wall motion abnormalities. No change since prior study dated .
--- NOTE | 2021-08-05 09:05 | Electrocardiograph Report ---
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
[2021-08-05] MEDS ORDERED: ASPIRIN EC 81 MG TAB PO SCH (10:00)
[2021-08-05] MEDS ORDERED: ASPIRIN EC 325 MG TAB PO SCH ×2 (10:00)
== END 2021-08-04 16:45 | disposition home or self-care (01) ==
LOC: ED 20:04 → 4A 08-04 00:21 → INTOOBSV 08-04 00:21 → 4A 08-04 10:08
PROVIDERS: ADMIT Hospitalist; ATTEND Student in an Organized Health Care Education/Training Program
DX: R07.89 Other chest pain (principal); I24.9 Acute ischemic heart disease, unspecified; I10 Essential (primary) hypertension; I25.10 Atherosclerotic heart disease of native coronary artery without angina pectoris; E11.65 Type 2 diabetes mellitus with hyperglycemia; E11.649 Type 2 diabetes mellitus with hypoglycemia without coma; E78.5 Hyperlipidemia, unspecified; E78.00 Pure hypercholesterolemia, unspecified; K31.84 Gastroparesis; K21.9 Gastro-esophageal reflux disease without esophagitis; G47.30 Sleep apnea, unspecified; Z95.1 Presence of aortocoronary bypass graft; Z79.899 Other long term (current) drug therapy; Z98.890 Other specified postprocedural states; Z79.4 Long term (current) use of insulin; Z79.84 Long term (current) use of oral hypoglycemic drugs; Z79.82 Long term (current) use of aspirin; Z91.14 Patient's other noncompliance with medication regimen
CPT/HCPCS: 36415; 71045; 78452; 80048; 80053; 82962; 83036; 83880; 84484; 85025; 85379; 93005; 93017; 96372; 96374; 99285; A9502; G0378; J1644; J2270; J2785; Q9967; J1815

== ENCOUNTER 2021-09-29 15:54 | Inpatient (IN) | payer MEDICARE ==
--- NOTE | 2021-09-29 18:19 | Event Note ---
ED Screening Note ED Screening Note: Patient came to the ER via EMS complaining of numbness and tingling. She was triaged by IV charge nurse in main ER. At 1820 she is at the desk complaining of her weight being so long. She has no focal deficit. Screening orders placed This initial assessment/diagnostic orders/clinical plan/treatment(s) is/are subject to change based on patients health status, clinical progression and re- assessment by fellow clinical providers in the ED. Further treatment and workup at subsequent clinical providers discretion. Patient/guardian urged not to elope from the ED as their condition may be serious if not clinically assessed and managed. Initial orders include:
[2021-09-29 19:20] LABS: Basophils % (Auto) 0.9 % (0.0-1.8); Eosinophils # (Auto) 0.2 K/mm3 (0.0-0.4); Eosinophils % (Auto) 2.9 % (0.0-4.3); Hematocrit 36.5 % (30.3-42.9); Hemoglobin 11.9 gm/dl (10.1-14.3); Lymphocytes # (Auto) 2.3 K/mm3 (1.2-5.4); Lymphocytes % (Auto) 41.6 % (13.4-35.0); Mean Corpuscular HGB Conc 33 % (30-34); Mean Corpuscular Volume 86 fl (79-97); Monocytes # (Auto) 0.3 K/mm3 (0.0-0.8); Platelet Count 252 K/mm3 (140-440); Red Blood Count 4.25 M/mm3 (3.65-5.03); Red Cell Distribution Width 13.1 % (13.2-15.2)
[2021-09-29 19:41] LABS: Alanine Aminotransferase 13 units/L (7-56); Albumin 3.7 g/dL (3.9-5); BUN/Creatinine Ratio 17; Blood Urea Nitrogen 15 mg/dL (7-17); Calcium 9.3 mg/dL (8.4-10.2); Hemolysis Index 1
--- NOTE | 2021-09-29 19:48 | Cat Scan Report ---
CT HEAD WITHOUT CONTRAST INDICATION / CLINICAL INFORMATION: LEFT SIDE TINGLING. Left-sided weakness. Symptoms began on the afternoon of 09/29/2021 TECHNIQUE: All CT scans at this location are performed using CT dose reduction for ALARA by means of automated e xposure control. COMPARISON: Head CT 07/26/2021 FINDINGS: HEMORRHAGE: No evidence of intracranial hemorrhage or extra-axial fluid collection. EXTRA-AXIAL SPACES: Cortical sulci, sylvian fissures and basilar cisterns have an unremarkable appear ance. VENTRICULAR SYSTEM: The third and lateral ventricles are of normal size and configuration. CEREBRAL PARENCHYMA: No areas of abnormal brain parenchymal attenuation are identified. There is no i ndication of recent infarction. MIDLINE SHIFT OR HERNIATION: There is no mass effect. CEREBELLUM / BRAINSTEM: Brainstem and cerebellum have an unremarkable appearance. MIDLINE STRUCTURES:No abnormalities of the pituitary gland or pineal region are identified. INTRACRANIAL VESSELS:No abnormalities are identified on this noncontrast head CT. ORBITS: visualized portions of the orbits have an unremarkable appearance. SOFT TISSUES of HEAD: No significant abnormality. CALVARIUM: Evaluation of bone windows reveals no abnormalities. PARANASAL SINUSES / MASTOID AIR CELLS: Persistent opacification of the right maxillary sinus is noted . Persistent opacification of right-sided ethmoid air cells. Visualized portions of the paranasal sin uses are otherwise free from inflammatory mucosal disease. Mastoid air cells are normally pneumatized . ADDITIONAL FINDINGS: None. IMPRESSION: 1. No acute intracranial abnormality. 2. Persistent inflammatory changes in the right maxillary sinus and right-sided ethmoid air cells. Signer Name: Estuardo Jacobson MD Signed: 09/29/2021 7:43 PM Workstation Name: [id number]
--- NOTE | 2021-09-29 23:39 | Emergency Department Report ---
- General Chief complaint: Hyperglycemia Stated complaint: HTN/HYPERGLYCEMIA Source: patient, EMS Mode of arrival: Stretcher Limitations: No Limitations - History of Present Illness Initial comments: 60-year-old female no history of TIA, diabetes, hypertension, CAD with coronary stents, presents to the emergency department with numbness or weakness of extremity. Patient reports at 1 PM she woke up with the left side of her face feeling numb, with jaw pain, left arm pain, left leg pain. States she has had similar episodes in the past but the numbness would resolve however today the numbness has persisted, while she has been in the lobby waiting she is now experiencing difficulty walking with dizziness. States she feels like the left side of her "face is ", her left arm and left leg are both weak, she had to be assisted back to the treatment area in a wheelchair. She denies chest pain, no shortness of breath, no fever or chills, no cough cold congestion, no vision changes. She denies drug or alcohol use Dr. Star Galindo is a primary care provider MD Complaint: numbness, tingling, difficulty walking -: Sudden, hour(s) Location: LUE, LLE, L face Quality: numbness, sharp Consistency: constant Improves with: none Worsens with: none - Related Data Previous Rx's Medication Instructions Recorded Last Taken Type Insulin Glargine [Lantus VIAL] 36 units SUB-Q QHS #1 vial 03/10/19 07/26/21 Rx Aspirin EC [Halfprin EC] 81 mg PO QDAY #30 tablet 08/04/21 Unknown Rx AtorvaSTATin [Lipitor] 40 mg PO QHS #30 tab 08/04/21 Unknown Rx Furosemide [Lasix TAB] 20 mg PO QDAY #30 tablet 08/04/21 Unknown Rx Pantoprazole [Protonix TAB] 40 mg PO QDAY #30 tablet 08/04/21 Unknown Rx amLODIPine 10 mg PO DAILY #14 tab 08/04/21 Unknown Rx carvediloL [Coreg] 12.5 mg PO BID #60 tablet 08/04/21 Unknown Rx metFORMIN [Glucophage] 1,000 mg PO BID #60 tablet 08/04/21 Unknown Rx Allergies Allergy/AdvReac Type Severity Reaction Status Date / Time No Known Allergies Allergy Verified 09/29/21 17:23 ED Review of Systems ROS: Stated complaint: HTN/HYPERGLYCEMIA Other details as noted in HPI Comment: All other systems reviewed and negative Constitutional: no symptoms reported Eyes: denies: as per HPI Respiratory: no symptoms reported. denies: cough Cardiovascular: denies: chest pain, palpitations Endocrine: no symptoms reported Gastrointestinal: denies: abdominal pain, nausea, vomiting Musculoskeletal: denies: back pain, myalgia Skin: as per HPI Neurological: weakness, numbness, paresthesias, abnormal gait. denies: confusion Psychiatric: as per HPI. denies: auditory hallucinations, visual hallucinations ED Past Medical Hx - Past Medical History Hx Hypertension: Yes Hx Diabetes: Yes Additional medical history: Sleep apnea, CAD, Gastroparesis, 2 coronary stents - Surgical History Additional Surgical History: Open heart surgery 03-18-2006 - Social History Smoking Status: Never Smoker Substance Use Type: Alcohol - Medications Home Medications: Home Medications Medication Instructions Recorded Confirmed Last Taken Type Insulin Glargine [Lantus VIAL] 36 units SUB-Q QHS #1 vial 03/10/19 07/26/21 07/26/21 Rx Aspirin EC [Halfprin EC] 81 mg PO QDAY #30 tablet 08/04/21 Unknown Rx AtorvaSTATin [Lipitor] 40 mg PO QHS #30 tab 08/04/21 Unknown Rx Furosemide [Lasix TAB] 20 mg PO QDAY #30 tablet 08/04/21 Unknown Rx Pantoprazole [Protonix TAB] 40 mg PO QDAY #30 tablet 08/04/21 Unknown Rx amLODIPine 10 mg PO DAILY #14 tab 08/04/21 Unknown Rx carvediloL [Coreg] 12.5 mg PO BID #60 tablet 08/04/21 Unknown Rx metFORMIN [Glucophage] 1,000 mg PO BID #60 tablet 08/04/21 Unknown Rx ED Physical Exam - General Limitations: Physical Limitation General appearance: alert - Head Head exam: Present: other (Left-sided mild droop) - Eye Eye exam: Present: normal appearance Pupils: Present: normal accommodation - ENT ENT exam: Present: normal exam, normal orophraynx - Neck Neck exam: Present: normal inspection. Absent: tenderness - Respiratory Respiratory exam: Present: normal lung sounds bilaterally. Absent: respiratory distress, wheezes, chest wall tenderness, accessory muscle use - Cardiovascular Cardiovascular Exam: Present: regular rate, normal rhythm - GI/Abdominal GI/Abdominal exam: Present: soft. Absent: distended, tenderness - Extremities Exam Extremities exam: Present: normal inspection, full ROM - Neurological Exam Neurological exam: Present: alert, oriented X3, abnormal gait, motor sensory deficit - Expanded Neurological Exam Expanded Neurological exam: Absent: total aphasia Patient oriented to: Present: person, place, time Speech: Present: fluid speech Cranial nerves: EOM's Intact: Normal, Gag Reflex: Normal, Tongue Deviation: Normal, Nystagmus: Normal, Facial Sensation: Abnormal Left - Level of Consciousness 1a. Level of Consciousness: alert/keenly responsive - LOC Questions 1b. LOC Questions: answers both correctly - LOC Command 1c. LOC Commands: performs tasks correctly - Best Gaze 2. Best Gaze: normal - Visual 3. Visual: no visual loss - Facial Palsy 4. Facial Palsy: minor paralysis - Motor Arm 5a. Motor Arm Left: drift 5b. Motor Arm Right: no drift - Motor Leg 6a. Motor Leg Left: drift 6b. Motor Leg Right: no drift - Limb Ataxia 7. Limb Ataxia: present 2 limbs - Sensory 8. Sensory: mild/moderate sensory loss - Best Language 9. Best Language: no aphasia - Dysarthria 10. Dysarthria: normal - Extinction and Inattention 11. Extinction/Inattention: no abnormality - Scoring Total Score: 6 Stroke Severity: Moderate Stroke ED Course Vital Signs 09/29/21 09/30/21 09/30/21 17:20 00:02 02:32 Temperature 98.9 F 98.9 F 98.5 F Pulse Rate 87 65 59 L Respiratory 18 18 20 Rate Blood Pressure 226/75 Blood Pressure 184/70 175/71 225/76 [Left] O2 Sat by Pulse 99 100 100 Oximetry - Reevaluation(s) Reevaluation #1: 09/29/21 23:20 Notify charge nurse Brandt patient is to be placed in the main ED going to bed with a cardiac rehabilitation program director, she needs a stat neuro consult, neuro consult, neuro assessment, with plan for admission. ED Medical Decision Making - Lab Data Result diagrams: 09/29/21 18:46 09/29/21 18:46 - Medical Decision Making 60-year-old female who was placed in the emergency care area initially for hypoglycemia upon my evaluation patient noted to have left-sided facial numbness weakness of the extremity difficulty walking. NIH of 6, last known well was 1300 on 09/29/[address] of the head was negative for acute bleed. However based on patient's symptoms, neuro consult admission. For further work-up. Care handed off to ED attending Dr. Pennington who would manage patient at this time Critical care attestation.: If time is entered above; I have spent that time in minutes in the direct care of this critically ill patient, excluding procedure time. ED Disposition Clinical Impression: Left facial numbness, Left upper extremity numbness, Left leg numbness, Left u pper limb pain, Pain in left lower leg CVA (cerebral vascular accident) Qualifiers: CVA mechanism: unspecified Qualified Code(s): I63.9 - Cerebral infarction, unspecified Disposition: 30 STILL A PATIENT Is pt being admited?: Yes Does the pt Need Aspirin: Yes Condition: Stable Referrals: PRIMARY CARE, [Primary Care Provider] - 3-5 Days
[2021-09-30 02:24] LABS: INR 0.85 (0.87-1.13)
[2021-09-30] MEDS ORDERED: ASPIRIN 325 MG TAB PO ONE (02:26)
--- NOTE | 2021-09-30 02:47 | Emergency Department Report ---
ED Neuro Deficit HPI - General Chief Complaint: Neuro Symptoms/Deficit Stated Complaint: HTN/HYPERGLYCEMIA Source: patient, EMS Mode of arrival: Stretcher Limitations: Physical Limitation - History of Present Illness Initial Comments: Ms Rios is a 60-year-old female with history of mini stroke in the past about 2 years ago, DM, HTn and CAD s/p stents brought to the main ED for neuro workup. According to patient her symptoms started when she got up from sleep around 1300 PM yesterday and progressively getting worse. She also mentioned that she is having problem walking at this time. Pt was initially seen by the midlevel provider who has had note on the patient and have had CT head and routine labs ordered. CT brain did not show any acute intracranial abnormality and labs were within normal limits except hyperglycemia. Pt denies any CP, SOB or Palpitation. Pt however also mentioned abdominal discomforts that is much better at this time. No other modifying or associated factors reported. - Related Data Home Medications: Previous Rx's Medication Instructions Recorded Last Taken Type Insulin Glargine [Lantus VIAL] 36 units SUB-Q QHS #1 vial 03/10/19 07/26/21 Rx Aspirin EC [Halfprin EC] 81 mg PO QDAY #30 tablet 08/04/21 Unknown Rx AtorvaSTATin [Lipitor] 40 mg PO QHS #30 tab 08/04/21 Unknown Rx Furosemide [Lasix TAB] 20 mg PO QDAY #30 tablet 08/04/21 Unknown Rx Pantoprazole [Protonix TAB] 40 mg PO QDAY #30 tablet 08/04/21 Unknown Rx amLODIPine 10 mg PO DAILY #14 tab 08/04/21 Unknown Rx carvediloL [Coreg] 12.5 mg PO BID #60 tablet 08/04/21 Unknown Rx metFORMIN [Glucophage] 1,000 mg PO BID #60 tablet 08/04/21 Unknown Rx Allergies/Adverse Reactions: Allergies Allergy/AdvReac Type Severity Reaction Status Date / Time No Known Allergies Allergy Verified 09/29/21 17:23 ED Review of Systems ROS: Stated complaint: HTN/HYPERGLYCEMIA Other details as noted in HPI Comment: All other systems reviewed and negative Constitutional: no symptoms reported Eyes: denies: as per HPI Respiratory: no symptoms reported. denies: cough Cardiovascular: denies: chest pain, palpitations Endocrine: no symptoms reported Gastrointestinal: denies: abdominal pain, nausea, vomiting Musculoskeletal: denies: back pain, myalgia Skin: as per HPI Neurological: weakness, numbness, paresthesias, abnormal gait. denies: confusion Psychiatric: as per HPI. denies: auditory hallucinations, visual hallucinations ED Past Medical Hx - Past Medical History Hx Hypertension: Yes Hx Diabetes: Yes Additional medical history: Sleep apnea, CAD, Gastroparesis, 2 coronary stents - Surgical History Additional Surgical History: Open heart surgery 03-18-2006 - Social History Smoking Status: Unknown if ever smoked - Medications Home Medications: Home Medications Medication Instructions Recorded Confirmed Last Taken Type Insulin Glargine [Lantus VIAL] 36 units SUB-Q QHS #1 vial 03/10/19 07/26/21 07/26/21 Rx Aspirin EC [Halfprin EC] 81 mg PO QDAY #30 tablet 08/04/21 Unknown Rx AtorvaSTATin [Lipitor] 40 mg PO QHS #30 tab 08/04/21 Unknown Rx Furosemide [Lasix TAB] 20 mg PO QDAY #30 tablet 08/04/21 Unknown Rx Pantoprazole [Protonix TAB] 40 mg PO QDAY #30 tablet 08/04/21 Unknown Rx amLODIPine 10 mg PO DAILY #14 tab 08/04/21 Unknown Rx carvediloL [Coreg] 12.5 mg PO BID #60 tablet 08/04/21 Unknown Rx metFORMIN [Glucophage] 1,000 mg PO BID #60 tablet 08/04/21 Unknown Rx ED Neuro Physical Exam - General Limitations: Physical Limitation General appearance: alert, in no apparent distress Suspected Stroke: Yes - Head Head exam: Present: atraumatic, normal inspection - Eye Eye exam: Present: normal appearance, PERRL, EOMI Pupils: Present: normal accommodation - ENT ENT exam: Present: normal exam, normal orophraynx, mucous membranes moist - Neck Neck exam: Present: normal inspection, full ROM. Absent: tenderness, meningismus - Respiratory Respiratory exam: Present: normal lung sounds bilaterally. Absent: respiratory distress, accessory muscle use - Cardiovascular Cardiovascular Exam: Present: regular rate, normal rhythm, normal heart sounds - GI/Abdominal GI/Abdominal exam: Present: soft, normal bowel sounds. Absent: distended, tenderness - Extremities Exam Extremities exam: Present: normal inspection, normal capillary refill. Absent: tenderness - Back Exam Back exam: Absent: tenderness - Neurological Exam Neurological exam: Present: alert, oriented X3 - NIHSS Assessment Interval: Baseline 1a. Level of Consciousness: alert/keenly responsive 1b. LOC Questions: answers both correctly 1c. LOC Commands: performs tasks correctly 2. Best Gaze: normal 3. Visual: no visual loss 4. Facial Palsy: normal symmetrical movement 5b. Motor Arm Right: no drift 5a. Motor Arm Left: no drift 6a. Motor Leg Left: no drift 6b. Motor Leg Right: no drift 7. Limb Ataxia: present 1 limb 8. Sensory: mild/moderate sensory loss 9. Best Language: no aphasia 10. Dysarthria: normal 11. Extinction/Inattention: no abnormality Total Score: 2 Stroke Severity: Minor Stroke - Psychiatric Psychiatric exam: Present: normal affect, normal mood - Skin Skin exam: Present: warm, normal color ED Course Vital Signs 09/29/21 09/30/21 09/30/21 17:20 00:02 02:32 Temperature 98.9 F 98.9 F 98.5 F Pulse Rate 87 65 59 L Respiratory 18 18 20 Rate Blood Pressure 226/75 Blood Pressure 184/70 175/71 225/76 [Left] O2 Sat by Pulse 99 100 100 Oximetry - Consultations Consultation #1: 09/30/21 03:09 Dr. Lazaro Rico neurology on-call Consultation #2: 09/30/21 05:06 Dr Servin consulted who accept pt - Lab Data Result diagrams: 09/29/21 18:46 09/29/21 18:46 Lab Results 09/29/21 09/29/21 09/30/21 Range/Units 18:46 18:46 00:27 WBC 5.7 (4.5-11.0) K/mm3 RBC 4.25 (3.65-5.03) M/mm3 Hgb 11.9 (10.1-14.3) gm/dl Hct 36.5 (30.3-42.9) % MCV 86 (79-97) fl MCH 28 (28-32) pg MCHC 33 (30-34) % RDW 13.1 L (13.2-15.2) % Plt Count 252 (140-440) K/mm3 Lymph % (Auto) 41.6 H (13.4-35.0) % Gage % (Auto) 6.0 (0.0-7.3) % Eos % (Auto) 2.9 (0.0-4.3) % Baso % (Auto) 0.9 (0.0-1.8) % Lymph # (Auto) 2.3 (1.2-5.4) K/mm3 Gage # (Auto) 0.3 (0.0-0.8) K/mm3 Eos # (Auto) 0.2 (0.0-0.4) K/mm3 Baso # (Auto) 0.0 (0.0-0.1) K/mm3 Seg Neutrophils % 48.6 (40.0-70.0) % Seg Neutrophils # 2.8 (1.8-7.7) K/mm3 PT (12.2-14.9) Sec. INR (0.87-1.13) APTT (24.2-36.6) Sec. Sodium 141 (137-145) mmol/L Potassium 4.1 (3.6-5.0) mmol/L Chloride 105.0 (98-107) mmol/L Carbon Dioxide 24 (22-30) mmol/L Anion Gap 16 mmol/L BUN 15 (7-17) mg/dL Creatinine 0.9 (0.6-1.2) mg/dL Estimated GFR > 60 ml/min BUN/Creatinine Ratio 17 % Glucose 297 H (65-100) mg/dL POC Glucose (70-105) mg/dL Calcium 9.3 (8.4-10.2) mg/dL Total Bilirubin 0.20 (0.1-1.2) mg/dL AST 15 (5-40) units/L ALT 13 (7-56) units/L Alkaline Phosphatase 96 (35-129) units/L Troponin T < 0.010 < 0.010 (0.00-0.029) ng/mL Total Protein 7.3 (6.3-8.2) g/dL Albumin 3.7 L (3.9-5) g/dL Albumin/Globulin Ratio 1.0 % 09/30/21 09/30/21 Range/Units 01:08 02:12 WBC (4.5-11.0) K/mm3 RBC (3.65-5.03) M/mm3 Hgb (10.1-14.3) gm/dl Hct (30.3-42.9) % MCV (79-97) fl MCH (28-32) pg MCHC (30-34) % RDW (13.2-15.2) % Plt Count (140-440) K/mm3 Lymph % (Auto) (13.4-35.0) % Gage % (Auto) (0.0-7.3) % Eos % (Auto) (0.0-4.3) % Baso % (Auto) (0.0-1.8) % Lymph # (Auto) (1.2-5.4) K/mm3 Gage # (Auto) (0.0-0.8) K/mm3 Eos # (Auto) (0.0-0.4) K/mm3 Baso # (Auto) (0.0-0.1) K/mm3 Seg Neutrophils % (40.0-70.0) % Seg Neutrophils # (1.8-7.7) K/mm3 PT 12.5 (12.2-14.9) Sec. INR 0.85 L (0.87-1.13) APTT 28.0 (24.2-36.6) Sec. Sodium (137-145) mmol/L Potassium (3.6-5.0) mmol/L Chloride (98-107) mmol/L Carbon Dioxide (22-30) mmol/L Anion Gap mmol/L BUN (7-17) mg/dL Creatinine (0.6-1.2) mg/dL Estimated GFR ml/min BUN/Creatinine Ratio % Glucose (65-100) mg/dL POC Glucose 332 H (70-105) mg/dL Calcium (8.4-10.2) mg/dL Total Bilirubin (0.1-1.2) mg/dL AST (5-40) units/L ALT (7-56) units/L Alkaline Phosphatase (35-129) units/L Troponin T (0.00-0.029) ng/mL Total Protein (6.3-8.2) g/dL Albumin (3.9-5) g/dL Albumin/Globulin Ratio % - EKG Data -: EKG Interpreted by Tx EKG shows normal: sinus rhythm Rate: normal 09/30/21 03:04 Noted with normal sinus rhythm at a rate of 67 bpm with normal QT and no ST elev ation or depression in this normal ECG. - Radiology Data CT head noted with FINDINGS: HEMORRHAGE: No evidence of intracranial hemorrhage or extra-axial fluid collection. EXTRA-AXIAL SPACES: Cortical sulci, sylvian fissures and basilar cisterns have an unremarkable appearance. VENTRICULAR SYSTEM: The third and lateral ventricles are of normal size and configuration. CEREBRAL PARENCHYMA: No areas of abnormal brain parenchymal attenuation are identified. There is no indication of recent infarction. MIDLINE SHIFT OR HERNIATION: There is no mass effect. CEREBELLUM / BRAINSTEM: Brainstem and cerebellum have an unremarkable appearance. MIDLINE STRUCTURES:No abnormalities of the pituitary gland or pineal region are identified. INTRACRANIAL VESSELS:No abnormalities are identified on this noncontrast head CT. ORBITS: visualized portions of the orbits have an unremarkable appearance. SOFT TISSUES of HEAD: No significant abnormality. CALVARIUM: Evaluation of bone windows reveals no abnormalities. PARANASAL SINUSES / MASTOID AIR CELLS: Persistent opacification of the right maxillary sinus is noted. Persistent opacification of right-sided ethmoid air cells. Visualized portions of the paranasal sinuses are otherwise free from inflammatory mucosal disease. Mastoid air cells are normally pneumatized. ADDITIONAL FINDINGS: None. IMPRESSION: 1. No acute intracranial abnormality. 2. Persistent inflammatory changes in the right maxillary sinus and right-sided ethmoid air cells. - Medical Decision Making here with neuro symptoms --this is could be likely minor or major CVA but could not rule out anxiety, myocardial infarction, hypertensive urgency, meningitis, seizure and or systemic infection leading to sepsis--so to rule this out we will go ahead and order routine neurological labs including initial CT scan of the brain to differentiate between ischemic or hemorrhagic stroke. We will also consult neurology for further disposition. Initial CT scan of the brain noted with unremarkable intracranial abnormality. This does not completely rule out major CVA so we will go ahead and order CTA neck and brain for further differentiation. Dr. Lazaro Rico neurology on-call consulted who agree with the above orders and suggested admitting patient to the hospitalist for complete CVA work-up. Call and consult Dr Servin who accept pt [facility] Critical care attestation.: If time is entered above; I have spent that time in minutes in the direct care of this critically ill patient, excluding procedure time. ED Disposition Clinical Impression: Left facial numbness, Left upper extremity numbness, Left leg numbness, Left upper limb pain, Pain in left lower leg CVA (cerebral vascular accident) Qualifiers: CVA mechanism: unspecified Qualified Code(s): I63.9 - Cerebral infarction, unspecified Abdominal pain Qualifiers: Abdominal location: generalized Qualified Code(s): R10.84 - Generalized abdominal pain Disposition: 09 ADMITTED INPATIENT Is pt being admited?: Yes Does the pt Need Aspirin: No Condition: Stable Referrals: PRIMARY CARE, [Primary Care Provider] - 3-5 Days Time of Disposition: 05:07
--- NOTE | 2021-09-30 03:07 | Consultation ---
Medications and Allergies Allergies Allergy/AdvReac Type Severity Reaction Status Date / Time No Known Allergies Allergy Verified 09/29/21 17:23 Home Medications Medication Instructions Recorded Confirmed Last Taken Type Insulin Glargine [Lantus VIAL] 36 units SUB-Q QHS #1 vial 03/10/19 07/26/21 Rx Aspirin EC [Halfprin EC] 81 mg PO QDAY #30 tablet 08/04/21 Unknown Rx AtorvaSTATin [Lipitor] 40 mg PO QHS #30 tab 08/04/21 Unknown Rx Furosemide [Lasix TAB] 20 mg PO QDAY #30 tablet 08/04/21 Unknown Rx Pantoprazole [Protonix TAB] 40 mg PO QDAY #30 tablet 08/04/21 Unknown Rx amLODIPine 10 mg PO DAILY #14 tab 08/04/21 Unknown Rx carvediloL [Coreg] 12.5 mg PO BID #60 tablet 08/04/21 Unknown Rx metFORMIN [Glucophage] 1,000 mg PO BID #60 tablet 08/04/21 Unknown Rx Active Meds: Active Medications Atorvastatin Calcium (Atorvastatin 10 Mg Tab) 10 mg PO QHS KELSEY Physical Examination - Vital Signs Vital Signs: Vital Signs Temp Pulse Resp BP Pulse Ox 98.9 F 87 18 184/70 99 09/29/21 17:20 09/29/21 17:20 09/29/21 17:20 09/29/21 17:20 09/29/21 17:20 Results - Laboratory Findings CBC and BMP: 09/29/21 18:46 09/29/21 18:46 Abnormal Lab Findings: Abnormal Labs 09/29/21 09/29/21 09/30/21 18:46 18:46 01:08 RDW 13.1 L Lymph % (Auto) 41.6 H INR 0.85 L Glucose 297 H POC Glucose Albumin 3.7 L 09/30/21 02:12 RDW Lymph % (Auto) INR Glucose POC Glucose 332 H Albumin Assessment and Plan [facility] Consult Note # Demographics Consult Type: General Neurology Patient Location: Emergency Room First Name: Marlene Last Name: Gabriel Date of : 1960 Age: 60 Gender: Female Facility: [facility] Time of Initial Page (Eastern Time): 09/30/2021, 02:42 Time of Return Call (Eastern Time): 09/30/2021, 02:45 # HPI History: 60F at 13:00 woke from sleep with left facial numbness and jaw pain, also left upper/lower extremity weakness. Now with some walking trouble also. Patient reports similar in the past but not this persistent. # Scores Time of exam and NIHSS (Eastern Time): 09/30/2021, 02:59 Level of Consciousness 1a: [0] = Alert; keenly responsive LOC Questions 1b: [0] = Answers both questions correctly LOC Commands 1c: [0] = Performs both tasks correctly Best Gaze 2: [0] = Normal Visual 3: [0] = No visual loss Facial Palsy 4: [0] = Normal symmetrical movements Motor Arm Left 5a: [1] = Drift Motor Arm Right 5b: [0] = No drift Motor Leg Left 6a: [1] = Drift Motor Leg Right 6b: [0] = No drift Limb Ataxia 7: [0] = Absent Sensory 8: [1] = [id number] sensory loss Best Language 9: [0] = No aphasia Dysarthria 10: [0] = Normal Extinction and Inattention 11: [0] = No abnormality NIHSS Total: 3 VAN Screening: Negative # PMH-FH-SH Past Medical History: Diabetes hypertension Medications: aspirin # Data Glucose: hyperglycemia Head CT: no bleed preliminary read # Assessment Impression: Ischemic Stroke (Acute) # Plan Thrombolytic/Intervention: NOT IV Thrombolysis or IA Intervention candidate Thrombolytic Exclusion (< 3 hour window): time of onset unclear Thrombolytic Exclusion: > 4.5 hours Intraarterial Exclusion: clinically consistent with small vessel disease Target Blood Pressure: SBP < 220 Labs: B12 TSH Imaging: (urgency: routine): CT Angiogram Head and CT Angiogram Neck MRI Brain without contrast Diagnostic Test: echo with bubble study Medication: aspirin 81 mg PLUS clopidogrel (Plavix) 75 mg for 21 days, then monotherapy therafter start statin with goal of LDL < 70 Other: LDL < 70 permissive hypertension telemetry monitoring I have discussed my recommendations with the referring provider Disposition: admit # Logistics Telemedicine: Interactive 2 way audio and visual telecommunication technology was utilized during this visit
[2021-09-30] MEDS ORDERED: MORPHINE 2 MG/1 ML INJ IV ONE (04:47)
[2021-09-30] MEDS: MORPHINE 2 MG/1 ML INJ IV PRN ×3 (05:00→23:24)
--- NOTE | 2021-09-30 05:06 | Cat Scan Report ---
CT angio head, CT angio neck INDICATION / CLINICAL INFORMATION: stroke. TECHNIQUE: CT angiography of the head and neck was performed following administration of 100 cc Omnip aque 350 intravenous contrast. In addition to axial source images, coronal and sagittal thin slab MIP reconstructions were provided. Additional 3-D volumetric reconstructions of vasculature were provide d. All CT scans at this location are performed using CT dose reduction for ALARA by means of automate d exposure control. Calculation of stenosis will be made using direct NASCET criteria. COMPARISON: None available. FINDINGS: VASCULAR FINDINGS: NECK: AORTA: The aorta demonstrates normal branch morphology. No acute aortic pathology. No severe stenosi s of great vessel origins. GREAT VESSELS: No significant abnormality demonstrated involving great vessels. VERTEBRAL ARTERIES: Vertebral origins are patent. The bilateral V2 segments demonstrate no significan t abnormality. RIGHT CAROTID: The right common carotid artery, common carotid artery bifurcation, external carotid a rtery, and cervical segment internal carotid artery demonstrate no significant abnormalities. LEFT CAROTID: The left common carotid artery, common carotid artery bifurcation, external carotid art lizett, and cervical segment internal carotid artery demonstrate no significant abnormalities. VENOUS STRUCTURES: No significant abnormality of the jugular veins is demonstrated. INTRACRANIAL CIRCULATION: RIGHT ICA: The right supraclinoid ICA demonstrates a short segment dissection originating near the or igin of the right ophthalmic artery. Right ophthalmic artery remains patent. RIGHT SACHA: The right anterior cerebral artery demonstrates no evidence of aneurysm, severe stenosis, or occlusion. RIGHT MCA: The right MCA demonstrates no evidence of large vessel occlusion, aneurysm formation, or s evere stenosis. LEFT ICA: The left petrous, cavernous, supraclinoid segments of the ICA demonstrate no significant ab normalities. The left supraclinoid bifurcation is patent. The left A1 segment is patent. LEFT SACHA: The left SACHA demonstrates no evidence of aneurysm formation, occlusion, or severe stenosis. LEFT MCA: The left MCA demonstrates no evidence of large vessel occlusion, aneurysm formation, or sev ere stenosis. ANTERIOR COMMUNICATING ARTERY: Absent POSTERIOR COMMUNICATING ARTERIES: The posterior communicating arteries demonstrate no significant abn ormalities. VERTEBRAL CONFLUENCE: The vertebral confluence demonstrates no significant abnormality. BASILAR ARTERY: Basilar artery demonstrates no significant abnormality. Bifurcation and bilateral P1 segments demonstrate patency without evidence of aneurysm formation, significant stenosis, or occlusi on. RIGHT MANAGEMENT ASSOCIATE: The right MANAGEMENT ASSOCIATE demonstrates no evidence of occlusion, aneurysm formation, or severe stenosi s. LEFT MANAGEMENT ASSOCIATE: The left MANAGEMENT ASSOCIATE demonstrates no evidence of occlusion, aneurysm formation, or severe stenosis. DURAL SINUSES AND CORTICAL DURAL VEINS: The dural sinuses and cortical dural veins demonstrate no sig nificant abnormalities. NONVASCULAR FINDINGS: The intracranial contents, intraorbital contents, paranasal sinuses, mastoid air cells, soft tissues and musculature of the face, soft tissues and musculature of the neck, thyroid, and upper chest demon strate no significant abnormalities. IMPRESSION: 1. 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 Right ophthalmi c artery is opacified with contrast. Otherwise, no aneurysm formation, significant stenosis, or occlu colby is demonstrated involving anterior and posterior intracranial circulation. 2. The dural sinuses and cortical epidural veins as well as the cervical venous structures demonstrat e no significant abnormality. 3. Nonvascular structures demonstrate no significant abnormality. Signer Name: Cornell Vieyra II, MD Signed: 09/30/2021 5:01 AM Workstation Name: [id number]
[2021-09-30] MEDS ORDERED: ALBUTEROL 2.5 MG/3 ML NEBU IH PRN (05:58)
[2021-09-30] MEDS ORDERED: DEXTROSE 50% IN WATER (25GM) 50 ML SYRINGE IV PRN ×2 (05:58→08:19)
[2021-09-30] MEDS ORDERED: SODIUM CHLORIDE 0.9% 1000 ML 1,000 ML IV SCH (06:00)
[2021-09-30] MEDS ORDERED: INSULIN LISPRO 100 UNIT/ML SUB-Q SCH ×2 (06:00→17:00)
--- NOTE | 2021-09-30 06:04 | Cat Scan Report ---
CT ABDOMEN AND PELVIS WITHOUT CONTRAST INDICATION / CLINICAL INFORMATION: abdominal pain. TECHNIQUE: Axial CT images were obtained through the abdomen and pelvis without IV contrast. All CT scans at this location are performed using CT dose reduction for ALARA by means of automated exposure control. COMPARISON: None available. FINDINGS: LOWER CHEST: No significant abnormality of the imaged chest. LIVER: No focal lesion. No acute findings. GALLBLADDER / BILE DUCTS: No significant abnormality. Biliary ducts grossly unremarkable. SPLEEN: No significant abnormality. PANCREAS: No significant abnormality. ADRENALS: No significant abnormality. KIDNEYS/URETERS: Contrast present bilaterally within the renal collecting systems and urinary bladder . Left renal cyst. STOMACH / DUODENUM / SMALL BOWEL: The stomach, duodenum, and small bowel demonstrate no significant a bnormality. No specific abnormality of the mesentery demonstrated. COLON: No significant abnormality. APPENDIX: No significant abnormality. PERITONEUM: No free air or free fluid are present within the abdomen or pelvis. LYMPH NODES: No significant adenopathy. AORTA / ARTERIES: Moderate atherosclerotic calcification without acute abnormality. IVC / VEINS: No significant abnormality. URINARY BLADDER: No significant abnormality. REPRODUCTIVE ORGANS: No significant abnormality. SKELETAL SYSTEM: No significant abnormality. ADDITIONAL ABDOMINAL/PELVIC FINDINGS: None. IMPRESSION: 1. No imaging findings to suggest etiology of the provided symptoms. Signer Name: Cornell Vieyra II, MD Signed: 09/30/2021 6:00 AM Workstation Name: [id number]
--- NOTE | 2021-09-30 06:07 | History and Physical Report ---
History of Present Illness Date of examination: 09/30/21 Date of admission: 09/30/21 Chief complaint: Left facial numbness, left-sided weakness History of present illness: 60-year-old female with history of stroke about 2 years ago, DM, hypertension and CAD s/p stents was brought to the emergency department because of left-sided facial numbness and left upper and lower extremity weakness. According to patient her symptoms started when she got up from sleep around 1300 PM yesterday and progressively getting worse. She also mentioned that she is having problem walking at this time. CT brain did not show any acute intracranial abnormality and labs were within normal limits except hyperglycemia. Pt denies any CP, SOB or Palpitation. Pt however also mentioned abdominal discomforts that is much better at this time. No other modifying or associated factors reported. In the emergency room patient is seen and evaluated by telemetry neurology. We are going to admit the patient. We will put the patient on CVA pathway Past History Past Medical History: CAD, diabetes, hypertension, stroke, other (Sleep apnea, CAD, Gastroparesis, 2 coronary stents) Past Surgical History: Other (Open heart surgery 03-18-2006) Social history: no significant social history Family history: hypertension Medications and Allergies Allergies Allergy/AdvReac Type Severity Reaction Status Date / Time No Known Allergies Allergy Verified 09/29/21 17:23 Home Medications Medication Instructions Recorded Confirmed Last Taken Type Insulin Glargine [Lantus VIAL] 36 units SUB-Q QHS #1 vial 03/10/19 07/26/21 07/26/21 Rx Aspirin EC [Halfprin EC] 81 mg PO QDAY #30 tablet 08/04/21 Unknown Rx AtorvaSTATin [Lipitor] 40 mg PO QHS #30 tab 08/04/21 Unknown Rx Furosemide [Lasix TAB] 20 mg PO QDAY #30 tablet 08/04/21 Unknown Rx Pantoprazole [Protonix TAB] 40 mg PO QDAY #30 tablet 08/04/21 Unknown Rx amLODIPine 10 mg PO DAILY #14 tab 08/04/21 Unknown Rx carvediloL [Coreg] 12.5 mg PO BID #60 tablet 08/04/21 Unknown Rx metFORMIN [Glucophage] 1,000 mg PO BID #60 tablet 08/04/21 Unknown Rx Active Meds: Active Medications Atorvastatin Calcium (Atorvastatin 10 Mg Tab) 10 mg PO QHS KELSEY Review of Systems All systems: negative Constitutional: weakness, other (Left-sided facial numbness. Left upper extremity and lower extremity weakness. Difficulty in walking. Hyperglycemia) Exam - Constitutional Vitals: Temp Pulse Resp BP Pulse Ox 98.5 F 59 L 20 225/76 100 09/30/21 02:32 09/30/21 02:32 09/30/21 02:32 09/30/21 02:32 09/30/21 02:32 General appearance: Present: no acute distress, well-nourished - EENT Eyes: Present: PERRL ENT: hearing intact, clear oral mucosa - Neck Neck: Present: supple, normal ROM - Respiratory Respiratory effort: normal Respiratory: bilateral: CTA - Cardiovascular Heart Sounds: Present: S1 & S2. Absent: rub, click - Extremities Extremities: pulses symmetrical, No edema Peripheral Pulses: within normal limits - Abdominal General gastrointestinal: Present: soft, non-tender, non-distended, normal bowel sounds Female genitourinary: Present: normal - Integumentary Integumentary: Present: clear, warm, dry - Musculoskeletal Musculoskeletal: gait normal, strength equal bilaterally - Psychiatric Psychiatric: appropriate mood/affect, intact judgment & insight - Neurologic Neurologic: CNII-XII intact, moves all extremities, other (Assessment Interval: Baseline) HEART Score - HEART Score Troponin: Troponin T < 0.010 ng/mL (0.00-0.029) 09/30/21 00:27 Results - Labs CBC & Chem 7: 09/29/21 18:46 09/29/21 18:46 Labs: Laboratory Last Values WBC 5.7 K/mm3 (4.5-11.0) 09/29/21 18:46 RBC 4.25 M/mm3 (3.65-5.03) 09/29/21 18:46 Hgb 11.9 gm/dl (10.1-14.3) 09/29/21 18:46 Hct 36.5 % (30.3-42.9) 09/29/21 18:46 MCV 86 fl (79-97) 09/29/21 18:46 MCH 28 pg (28-32) 09/29/21 18:46 MCHC 33 % (30-34) 09/29/21 18:46 RDW 13.1 % (13.2-15.2) L 09/29/21 18:46 Plt Count 252 K/mm3 (140-440) 09/29/21 18:46 Lymph % (Auto) 41.6 % (13.4-35.0) H 09/29/21 18:46 [place] % (Auto) 6.0 % (0.0-7.3) 09/29/21 18:46 Eos % (Auto) 2.9 % (0.0-4.3) 09/29/21 18:46 Baso % (Auto) 0.9 % (0.0-1.8) 09/29/21 18:46 Lymph # (Auto) 2.3 K/mm3 (1.2-5.4) 09/29/21 18:46 [place] # (Auto) 0.3 K/mm3 (0.0-0.8) 09/29/21 18:46 Eos # (Auto) 0.2 K/mm3 (0.0-0.4) 09/29/21 18:46 Baso # (Auto) 0.0 K/mm3 (0.0-0.1) 09/29/21 18:46 Seg Neutrophils % 48.6 % (40.0-70.0) 09/29/21 18:46 Seg Neutrophils # 2.8 K/mm3 (1.8-7.7) 09/29/21 18:46 PT 12.5 Sec. (12.2-14.9) 09/30/21 01:08 INR 0.85 (0.87-1.13) L 09/30/21 01:08 APTT 28.0 Sec. (24.2-36.6) 09/30/21 01:08 Sodium 141 mmol/L (137-145) 09/29/21 18:46 Potassium 4.1 mmol/L (3.6-5.0) 09/29/21 18:46 Chloride 105.0 mmol/L (98-107) 09/29/21 18:46 Carbon Dioxide 24 mmol/L (22-30) 09/29/21 18:46 Anion Gap 16 mmol/L 09/29/21 18:46 BUN 15 mg/dL (7-17) 09/29/21 18:46 Creatinine 0.9 mg/dL (0.6-1.2) 09/29/21 18:46 Estimated GFR > 60 ml/min 09/29/21 18:46 BUN/Creatinine Ratio 17 % 09/29/21 18:46 Glucose 297 mg/dL (65-100) H 09/29/21 18:46 POC Glucose 332 mg/dL (70-105) H 09/30/21 02:12 Calcium 9.3 mg/dL (8.4-10.2) 09/29/21 18:46 Total Bilirubin 0.20 mg/dL (0.1-1.2) 09/29/21 18:46 AST 15 units/L (5-40) 09/29/21 18:46 ALT 13 units/L (7-56) 09/29/21 18:46 Alkaline Phosphatase 96 units/L (35-129) 09/29/21 18:46 Troponin T < 0.010 ng/mL (0.00-0.029) 09/30/21 00:27 Total Protein 7.3 g/dL (6.3-8.2) 09/29/21 18:46 Albumin 3.7 g/dL (3.9-5) L 09/29/21 18:46 Albumin/Globulin Ratio 1.0 % 09/29/21 18:46 - Imaging and Cardiology CT Scan - head: report reviewed Assessment and Plan VTE prophylaxis?: Chemical Plan of care discussed with patient/family: Yes - Patient Problems (1) CVA (cerebral vascular accident) Current Visit: Yes Status: Acute Qualifiers: CVA mechanism: unspecified Qualified Code(s): I63.9 - Cerebral infarction, unspecified Plan to address problem: Admit the patient to the medical telemetry. Aspirin 81 mg daily. Plavix 75 mg p.o. daily. Lipitor 40 mg p.o. daily. PT OT speech evaluation. MRI of the brain and MRA of the brain and neck with and without contrast .neurology evaluation (2) Left facial numbness Current Visit: Yes Status: Acute Plan to address problem: Aspirin 81 mg daily. Plavix 75 mg p.o. daily. Lipitor 40 mg p.o. daily. PT OT speech evaluation. MRI of the brain and MRA of the brain and neck with and without contrast .neurology evaluation (3) Left upper extremity numbness Current Visit: Yes Status: Acute Plan to address problem: Aspirin 81 mg daily. Plavix 75 mg p.o. daily. Lipitor 40 mg p.o. daily. PT OT speech evaluation. MRI of the brain and MRA of the brain and neck with and without contrast .neurology evaluation (4) CAD (coronary artery disease) Current Visit: No Status: Acute Plan to address problem: Aspirin 81 mg daily. Plavix 75 mg p.o. daily. Lipitor 40 mg p.o. daily. Echocardiogram (5) Diabetes Current Visit: No Status: Acute Plan to address problem: Accu-Chek every 6 hours with Humalog moderate dose sliding scale. Diabetic education. Continue home medication (6) High cholesterol Current Visit: No Status: Acute Plan to address problem: Lipitor 40 mg p.o. daily. Recheck the lipid panel (7) Hypertension Current Visit: No Status: Acute Plan to address problem: Labetalol 10 mg IV every 6 hours as needed. We will continue the home medication. We will monitor the blood pressure closely (8) DVT prophylaxis Current Visit: No Status: Acute Plan to address problem: Heparin 5000 units subcu every 12 hours for DVT prophylaxis. Pepcid 20 mg IV every 12 hours for GI prophylaxis. Patient is a full code
[2021-09-30] MEDS: ACETAMINOPHEN 325 MG TAB PO PRN (08:37)
[2021-09-30] MEDS ORDERED: LORazepam 2 MG/ML VIAL IV PRN (09:00)
--- NOTE | 2021-09-30 09:05 | Electrocardiograph Report ---
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
[2021-09-30 09:13] LABS: Mucus,Urine FEW /HPF
[2021-09-30 09:16] LABS: Bilirubin,Urine Negative (Negative); Blood,Urine Negative (Negative); Color,Urine Straw (Yellow); Protein,Urine <30 mg dL mg/dL (Negative)
[2021-09-30 09:17] LABS: Urobilinogen,Urine < 2.0 mg/dL (<2.0)
--- NOTE | 2021-09-30 09:41 | Consultation ---
History of Present Illness Consult date: 09/30/21 Reason for Consult: cva Chief complaint: left-sided weakness History of present illness: 60 yo right-handed female with htn, dm, hld, cva, cabg/pci w/ stents, karissa, who presents with acute onset of left-sided weakness when she woke up from sleep. She presented outside the t-pa window. Currently, notes continued weak ness/numbness of the left face/arm/leg. Past History Past Medical History: CAD, diabetes, hypertension, stroke, other (Sleep apnea, CAD, Gastroparesis, 2 coronary stents) Past Surgical History: Other (Open heart surgery 03-18-2006) Social history: no significant social history Family history: hypertension Medications and Allergies Allergies Allergy/AdvReac Type Severity Reaction Status Date / Time No Known Allergies Allergy Verified 09/29/21 17:23 Home Medications Medication Instructions Recorded Confirmed Last Taken Type Insulin Glargine [Lantus VIAL] 36 units SUB-Q QHS #1 vial 03/10/19 07/26/21 07/26/21 Rx Aspirin EC [Halfprin EC] 81 mg PO QDAY #30 tablet 08/04/21 Unknown Rx AtorvaSTATin [Lipitor] 40 mg PO QHS #30 tab 08/04/21 Unknown Rx Furosemide [Lasix TAB] 20 mg PO QDAY #30 tablet 08/04/21 Unknown Rx Pantoprazole [Protonix TAB] 40 mg PO QDAY #30 tablet 08/04/21 Unknown Rx amLODIPine 10 mg PO DAILY #14 tab 08/04/21 Unknown Rx carvediloL [Coreg] 12.5 mg PO BID #60 tablet 08/04/21 Unknown Rx metFORMIN [Glucophage] 1,000 mg PO BID #60 tablet 08/04/21 Unknown Rx Active Meds: Active Medications Acetaminophen (Acetaminophen 325 Mg Tab) 650 mg PO Q4H PRN PRN Reason: Pain MILD(1-3)/Fever >100.5/COLLINS Last Admin: 09/30/21 08:37 Dose: 650 mg Albuterol (Albuterol 2.5 Mg/3 Ml Nebu) 2.5 mg IH Q3HRT PRN PRN Reason: Shortness Of Breath Albuterol/Ipratropium (Ipratropium/Albuterol Sulfate 3 Ml Ampul.Neb) 1 ampul IH Q6HRT KELSEY Aspirin (Aspirin 81 Mg Tab Chew) 81 mg PO QDAY KELSEY Atorvastatin Calcium (Atorvastatin 40 Mg Tab) 40 mg PO QHS KELSEY Clopidogrel Bisulfate (Clopidogrel 75 Mg Tab) 75 mg PO QDAY [facility] Dextrose (Dextrose 50% In Water (25gm) 50 Ml Syringe) 50 ml IV Q30MIN PRN; Protocol PRN Reason: Hypoglycemia Famotidine (Famotidine 20 Mg/2 Ml Inj) 20 mg IV BID [facility] Heparin Sodium (Porcine) (Heparin 5,000 Unit/1 Ml Vial) 5,000 unit SUB-Q Q8HR KELSEY Sodium Chloride (Nacl 0.9% 1000 Ml) 1,000 mls @ 100 mls/hr IV DIRECT KELSEY Last Admin: 09/30/21 06:49 Dose: 100 mls/hr Insulin Glargine (Insulin Glargine 100 Units/Ml) 20 units SUB-Q QHS KELSEY Insulin Human Lispro (Insulin Lispro 100 Unit/Ml) 0 unit SUB-Q ACHS KELSEY; Protocol Labetalol HCl (Labetalol 20 Mg/4 Ml Inj) 10 mg IV Q5MIN PRN PRN Reason: to maintain SBP < 180 Last Admin: 09/30/21 08:31 Dose: 10 mg Lorazepam (Lorazepam 2 Mg/Ml Vial) 2 mg IV PRN PRN PRN Reason: agitation Stop: 09/30/21 18:00 Morphine Sulfate (Morphine 2 Mg/1 Ml Inj) 2 mg IV Q4H PRN PRN Reason: Pain, Moderate (4-6) Last Admin: 09/30/21 09:27 Dose: 2 mg Morphine Sulfate (Morphine 4 Mg/1 Ml Inj) 4 mg IV Q4H PRN PRN Reason: Pain , Severe (7-10) Ondansetron HCl (Ondansetron 4 Mg/2 Ml Inj) 4 mg IV Q8H PRN PRN Reason: Nausea And Vomiting Sodium Chloride (Sodium Chloride 0.9% 10 Ml Flush Syringe) 10 ml IV BID [facility] Sodium Chloride (Sodium Chloride 0.9% 10 Ml Flush Syringe) 10 ml IV PRN PRN PRN Reason: LINE FLUSH Review of Systems All systems: negative (as per hpi;) Physical Examination - Vital Signs Vital Signs: Vital Signs Temp Pulse Resp BP Pulse Ox 98.9 F 87 18 184/70 99 09/29/21 17:20 09/29/21 17:20 09/29/21 17:20 09/29/21 17:20 09/29/21 17:20 - Physical Exam Narrative exam: left facial droop/numbness; right arm/leg numbness relative to left exts bilateral slight arm drift Gen: nad, well-nourished; Head: normocephalic; Eyes: no gaze deviation; no ptosis; ENT: normal vocalization; CVS: warm and well-perfused; Pulm: no respiratory distress; GI: appears non-distended; Ext: no cyanosis appreciated at distal extremities; Skin: no acute rash at distal extremities; Heme: no pathologic ecchymosis appreciated at distal extremities; Neuro: alert, oriented to name, age, month, year, surroundings, slight dysarthria, no aphasia, CN 2 - PERRL, visual barnes grossly intact, CN 3, 4, 6 - EOMI, CN 5 - facial sensation is decreased on the left to light touch, CN 7 - facial movement with left facial droop, CN 8 - hearing grossly intact, CN 9, 10 - uvula midline, CN 11 symmetric shoulder movement, CN 12 - tongue midline; Motor - at least 4+/5 at all exts except 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 weakness (4/5); right foot dorsiflexion weakness (3/5); bilateral arm drift (slight); Sensory - light touch decreased at right arm/leg, Cerebellar - fnf /hts slowed/intact, Gait - deferred secondary to fall risk; NIHSS (1a.) Level of Consciousness:0 (1b.) LOC Questions:0 (1c.) LOC Commands0: (2.) Best Gaze:0 (3.) Visual:0 (4.) Facial Palsy:1 (5a.) Motor Arm, Left:1 (5b.) Motor Arm, Right:1 (6a.) Motor Leg, Left:0 (6b.) Motor Leg, Right:0 (7.) Limb Ataxia:0 (8.) Sensory:1 (9.) Best Language:0 (10.) Dysarthria:1 (11.) Extinction and Inattention:0 NIHSS Total Score: 5 Results - Laboratory Findings CBC and BMP: 09/29/21 18:46 09/29/21 18:46 Abnormal Lab Findings: Abnormal Labs 09/29/21 09/29/21 09/30/21 18:46 18:46 01:08 RDW 13.1 L Lymph % (Auto) 41.6 H INR 0.85 L Glucose 297 H POC Glucose Albumin 3.7 L Urine WBC (Auto) 09/30/21 09/30/21 09/30/21 02:12 06:42 08:02 RDW Lymph % (Auto) INR Glucose POC Glucose 332 H 357 H 354 H Albumin Urine WBC (Auto) 09/30/21 08:52 RDW Lymph % (Auto) INR Glucose POC Glucose Albumin Urine WBC (Auto) 9.0 H Assessment and Plan 60 yo right-handed female with htn, dm, hld, cva, cabg/pci w/ stents, karissa, who presents with acute onset of left-sided weakness when she woke up from sleep (outside the t-pa window). Atypical exam as the patient complains of left-sided weakness but has numbness/weakness involving the right side > left side. 1. Acute Ischemic Stroke: ASA 325 mg PO qday, MRI Brain w/ wo contrast, TTEcho, confirm LDL/HgbA1C/TSH/Covid-19/UDS, telemetry, NIHSS q4 hours; SBP goal 160-200 mmHg and DBP 80-100 mmHg for 48 more hours. Statin therapy for a goal LDL of 70, when patient passes swallow evaluation. PT/OT/ST/Swallow evaluation. Long-term risk-factor modification, including a strict diet/exercise regimen for secondary stroke prophylaxis. Stroke education prior to discharge. 2. Right ICA Dissection - asa/plavix + statin therapy. 3. Hypertension - goal SBP 160-200 mmHg and DBP 80-100 mmHg for 48 more hours. 4. Diabetes Mellitus - maintain euglycemia. 5. Hyperlipidemia - goal LDL of 70 w/ statin therapy if no contraindications. 6. Dysarthria / Dysphagia - st / swallow evaluation/monitoring. 7. Left(>Right)-sided weakness w/ right-sided numbness - mri cpsine w/ wo contrast; pt/ot evaluation/monitoring. 8. Unsteady Gait - pt/ot evaluation/monitoring. Amado Winn MD Neurology [id number]
[2021-09-30] MEDS ORDERED: HEPARIN 5,000 UNIT/1 ML VIAL SUB-Q SCH (10:00)
[2021-09-30] MEDS ORDERED: ASPIRIN 325 MG TAB PO SCH (10:00)
[2021-09-30] MEDS: ASPIRIN 81 MG TAB CHEW PO SCH (10:28)
[2021-09-30] MEDS: CLOPIDOGREL 75 MG TAB PO SCH (10:28)
[2021-09-30] MEDS: INSULIN LISPRO 100 UNIT/ML SUB-Q SCH ×3 (17:04→22:43)
--- NOTE | 2021-09-30 17:21 | Event Note ---
Date: 09/30/21 Patient was evaluated this morning, she was found to be hemodynamically stable. #Possible acute ischemic CVA #Left facial numbness Unremarkable CT head noncontrast, CT angio head and neck Pending MRI brain with and without contrast + MRA and MRV head and neck Continue aspirin 81 mg daily + Plavix 75 mg daily + Lipitor 40 mg daily Neurology consulted; la amezcua Physical therapy, Occupational Therapy, and speech therapy consulted #Hypertension #Hyperlipidemia - home medications: - current medications: Atorvastatin 40 mg daily - SBP goal <160 and DBP goal <90 while inpatient - continue to monitor #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 - hemoglobin A1c: Pending Lantus - home regimen: Lantus 30 units daily - current regimen: Lantus 20 units daily + moderate SSI - blood glucose goal 140-180 while inpatient - continue to monitor #CAD -Continue Plavix 75 mg daily and Lipitor 40 mg daily #Coordination of CARE time: 30 minutes. Total visit time equals 30 or more minutes with greater than 50% spent [id number] on coordination of care and counseling. #Advanced care planning -Disease education conducted, care plan discussed, diagnoses discussed, prognosis discussed, and patient acknowledges understanding with care plan -Time: +30 min
[2021-09-30] MEDS: FAMOTIDINE 20 MG/2 ML INJ IV SCH ×2 (19:01→23:07)
[2021-09-30] MEDS: IPRATROPIUM/ALBUTEROL SULFATE 3 ML AMPUL.NEB IH SCH ×2 (19:01→21:34)
--- NOTE | 2021-09-30 19:20 | XRay Report ---
Right shoulder-3 views INDICATION: fall. COMPARISON: None available. IMPRESSION: No acute osseous abnormality. Normal alignment. Moderate acromioclavicular and glenohum eral degenerative arthrosis with osteochondral bodies layering in the axillary recess. Soft tissues are unremarkable. Signer Name: Domingo Benjamin MD Signed: 09/30/2021 7:16 PM Workstation Name: [id number]
[2021-09-30] MEDS: HEPARIN 5,000 UNIT/1 ML VIAL SUB-Q SCH ×2 (19:24→23:08)
[2021-09-30 20:36] LABS: Chol/HDL Ratio 3.28 %
--- NOTE | 2021-09-30 21:27 | Magnetic Resonance Report ---
MR brain wo/w con INDICATION / CLINICAL INFORMATION: 60 years Female; cva, mets, ms. TECHNIQUE: Multiplanar, multisequence MR images of the brain were obtained. COMPARISON: None available. FINDINGS: BRAIN / INTRACRANIAL CONTENTS: There is acute infarct involving posterior left parry radiata measuri ng approximately 2.5 cm in greatest curvilinear dimension. There are otherwise scattered small hyperi ntense foci involving the cerebral white matter on the FLAIR sequences most consistent with mild micr ovascular angiopathy. Chronic ischemic changes are also noted along the left frontoparietal cortical junction. The ventricular system is appropriate in size and configuration. No extra-axial fluid collections or significant mass effect is identified. The motion degrades image quality, particularly on the postcon trast sequences. However, no definitive intra-axial enhancing lesions are appreciated. CRANIOCERVICAL JUNCTION: No significant abnormality. VASCULAR FLOW-VOIDS: No significant abnormality. ORBITS: No significant abnormality of visualized orbits. SINUSES / MASTOIDS: There is complete heterogeneous opacification of the right maxillary sinus extend s into the right ethmoid air cells. Minimal mucosal thickening is also seen within the right frontal sinus. ADDITIONAL FINDINGS: None. IMPRESSION: 1. The study is limited by motion. However, the C2 0.5 cm acute infarct along the posterior left yandel na radiata as detailed above. 2. There is complete heterogeneous opacification the right maxillary sinus extending into the right e thmoid air cells. Signer Name: Chance Franklin MD Signed: 09/30/2021 9:22 PM Workstation Name: [id number]
--- NOTE | 2021-09-30 21:37 | Magnetic Resonance Report ---
MR cervical spine wo/w con INDICATION / CLINICAL INFORMATION: 60 years Female; transverse myelitis. TECHNIQUE: Multisequence, multiplanar images of the cervical spine were obtained. COMPARISON: None available. FINDINGS: CRANIOCERVICAL JUNCTION:No significant abnormality. ALIGNMENT: There is no significant spondylolisthesis of the cervical spine. VERTEBRAE:There is no significant edema of the cervical vertebral bodies. VISUALIZED SPINAL CORD: The motion degrades the image quality. Subtle focus of increased T2-weighted signal along the ventral cord at C4 which appears to be related to the degree of motion artifact. No further corresponding abnormalities are seen on the remaining sequences and correlation would be need ed given history of "transverse myelitis" any previous outside imaging. TADCC-BD-EDRZH ANALYSIS: C2-3: There is partial congenital fusion at C2-3 without significant stenosis. C3-4: The broad-based disc bulge effaces the subarachnoid space without significant direct cord compr ession. There is mild neural foraminal narrowing bilaterally. C4-5: There is no disc protrusion or significant central spinal stenosis. There is mild right foramin al narrowing. C5-6: There is no disc protrusion or significant spinal stenosis or foraminal narrowing. C6-7: There is a minimal disc bulge without spinal stenosis. C7-T1: No significant abnormality. PARASPINAL SOFT TISSUES: No significant abnormality. ADDITIONAL FINDINGS: No epidural collections are identified. No definitive intradural enhancing lesio ns are appreciated. IMPRESSION: 1. The study is limited by motion. However, there are multilevel mild degenerative changes and disc b ulges as detailed above without significant spinal stenosis. Signer Name: Chance Franklin MD Signed: 09/30/2021 9:33 PM Workstation Name: [id number]
[2021-09-30] MEDS: INSULIN GLARGINE 100 UNITS/ML SUB-Q SCH (23:47)
[2021-10-01] MEDS: IPRATROPIUM/ALBUTEROL SULFATE 3 ML AMPUL.NEB IH SCH ×2 (01:58→07:50)
[2021-10-01] MEDS: HEPARIN 5,000 UNIT/1 ML VIAL SUB-Q SCH ×3 (06:31→22:00)
[2021-10-01 07:47] LABS: Basophils % (Auto) 0.2 % (0.0-1.8); Eosinophils # (Auto) 0.2 K/mm3 (0.0-0.4); Eosinophils % (Auto) 3.3 % (0.0-4.3); Hematocrit 35.7 % (30.3-42.9); Hemoglobin 11.5 gm/dl (10.1-14.3); Lymphocytes # (Auto) 2.2 K/mm3 (1.2-5.4); Mean Corpuscular HGB Conc 32 % (30-34); Mean Corpuscular Volume 86 fl (79-97); Monocytes # (Auto) 0.4 K/mm3 (0.0-0.8); Monocytes % (Auto) 5.6 % (0.0-7.3); Platelet Count 246 K/mm3 (140-440); Red Blood Count 4.14 M/mm3 (3.65-5.03)
[2021-10-01 08:10] LABS: BUN/Creatinine Ratio 19; Blood Urea Nitrogen 15 mg/dL (7-17); Calcium 9.1 mg/dL (8.4-10.2); Hemolysis Index 25
[2021-10-01] MEDS: INSULIN LISPRO 100 UNIT/ML SUB-Q SCH ×4 (08:30→22:02)
[2021-10-01] MEDS: CLOPIDOGREL 75 MG TAB PO SCH (09:37)
[2021-10-01] MEDS: FAMOTIDINE 20 MG/2 ML INJ IV SCH (09:37)
[2021-10-01] MEDS: ASPIRIN 81 MG TAB CHEW PO SCH (09:37)
--- NOTE | 2021-10-01 10:09 | Electrocardiograph Report ---
[facility] Test Date: 2021-10-01 Test Time: 06:56:15 Pat Name: PATTI DE GUZMAN Department: Room: A459 1 Gender: F [employer] Research Analyst: ABDIRASHID : [id number] Requested By: JENNA PALMER Order Number: [id number] Reading MD: Jose Kaiser Measurements Intervals [place] Rate: 65 P: 49 TN: 144 QRS: 74 QRSD: 82 T: 56 QT: 404 QTc: 419 Interpretive Statements Sinus rhythm Compared to ECG 09/29/2021 18:30:11 ST (T wave) deviation now present Myocardial infarct finding now present Electronically Signed On 10-01-2021 10:08:50 EDT by Jose Kaiser
[2021-10-01] MEDS: MORPHINE 2 MG/1 ML INJ IV PRN ×3 (10:54→22:28)
--- NOTE | 2021-10-01 11:15 | Progress Note ---
Assessment and Plan Assessment and plan: #Acute ischemic CVA #Left facial numbness Unremarkable CT head noncontrast, CT angio head and neck MRI brain with and without contrast (08/31/2021) revealing "acute infarct involving posterior left parry radiata measuring approximately 2.5 cm in greatest curvilinear dimension". TTE (09/30/2021) revealing EF 55-60% with normal-sized LV, normal LV systolic function, mild diastolic dysfunction, normal-sized RV, hypokinetic RV, unremarkable for PFO, and RVSP is 17 mmHg. Hemoglobin A1c pending. Lipid profile: Triglycerides 89, cholesterol 243, LDL 151, HDL 74. Continue aspirin 81 mg daily + Plavix 75 mg daily + Lipitor 40 mg daily Neurology consulted; appreciate recs Physical therapy and Occupational Therapy consulted; pending recs #Hypertension #Hyperlipidemia - home medications: Coreg 12.5 mg twice daily, amlodipine 10 mg daily, Lasix 20 mg daily, atorvastatin 40 mg daily, aspirin 81 mg daily - current medications: Atorvastatin 40 mg daily, coreg 12.5mg BID, and amlodipine 10mg daily - SBP goal <160 and DBP goal <90 while inpatient - continue to monitor #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 - hemoglobin A1c: Pending - home regimen: Metformin 1000 mg twice daily, glargine 36 units nightly - current regimen: Lantus 20 units daily + moderate SSI + metformin 1000mg BID - blood glucose goal 140-180 while inpatient - continue to monitor #CAD -Continue Plavix 75 mg daily and Lipitor 40 mg daily #GERD Continue home pantoprazole 40 mg daily #Advanced care planning -Disease education conducted, care plan discussed, diagnoses discussed, prognosis discussed, and patient acknowledges understanding with care plan -Time: +30 min Disposition Plan: Continue medical management Total Time Spent with Patient (Minutes): 45 minutes History Interval history: No acute events overnight. Hospitalist Physical - Constitutional Vitals: Temp Pulse Resp BP Pulse Ox 98.3 F 71 18 197/59 99 10/01/21 08:02 10/01/21 03:15 10/01/21 08:02 10/01/21 08:02 10/01/21 03:15 General appearance: Present: no acute distress, well-nourished, other (Tearful during conversation this morning) - EENT Eyes: Present: PERRL, EOM intact ENT: hearing intact, clear oral mucosa, dentition normal - Neck Neck: Present: supple, normal ROM - Respiratory Respiratory effort: normal Respiratory: bilateral: CTA - Cardiovascular Rhythm: regular Heart Sounds: Present: S1 & S2 - Extremities Extremities: no ischemia, pulses intact, pulses symmetrical, No edema, normal temperature, normal color Peripheral Pulses: within normal limits - Abdominal General gastrointestinal: soft, non-tender, non-distended, normal bowel sounds - Integumentary Integumentary: Present: clear, warm, dry - Psychiatric Psychiatric: appropriate mood/affect, intact judgment & insight, memory intact, cooperative - Neurologic Neurologic: CNII-XII intact, other (Left >right sided weakness; 4/5 strength of right upper and lower extremity. A 3.5/5 strength of left upper and lower extremity.) HEART Score - HEART Score Troponin: Troponin T < 0.010 ng/mL (0.00-0.029) 09/30/21 00:27 Results - Labs CBC & Chem 7: 10/01/21 06:59 10/01/21 06:59 Labs: Laboratory Last Values WBC 6.7 K/mm3 (4.5-11.0) 10/01/21 06:59 RBC 4.14 M/mm3 (3.65-5.03) 10/01/21 06:59 Hgb 11.5 gm/dl (10.1-14.3) 10/01/21 06:59 Hct 35.7 % (30.3-42.9) 10/01/21 06:59 MCV 86 fl (79-97) 10/01/21 06:59 MCH 28 pg (28-32) 10/01/21 06:59 MCHC 32 % (30-34) 10/01/21 06:59 RDW 13.0 % (13.2-15.2) L 10/01/21 06:59 Plt Count 246 K/mm3 (140-440) 10/01/21 06:59 Lymph % (Auto) 33.0 % (13.4-35.0) 10/01/21 06:59 [place] % (Auto) 5.6 % (0.0-7.3) 10/01/21 06:59 Eos % (Auto) 3.3 % (0.0-4.3) 10/01/21 06:59 Baso % (Auto) 0.2 % (0.0-1.8) 10/01/21 06:59 Lymph # (Auto) 2.2 K/mm3 (1.2-5.4) 10/01/21 06:59 [place] # (Auto) 0.4 K/mm3 (0.0-0.8) 10/01/21 06:59 Eos # (Auto) 0.2 K/mm3 (0.0-0.4) 10/01/21 06:59 Baso # (Auto) 0.0 K/mm3 (0.0-0.1) 10/01/21 06:59 Seg Neutrophils % 57.9 % (40.0-70.0) 10/01/21 06:59 Seg Neutrophils # 3.9 K/mm3 (1.8-7.7) 10/01/21 06:59 PT 12.5 Sec. (12.2-14.9) 09/30/21 01:08 INR 0.85 (0.87-1.13) L 09/30/21 01:08 APTT 28.0 Sec. (24.2-36.6) 09/30/21 01:08 Sodium 140 mmol/L (137-145) 10/01/21 06:59 Potassium 4.2 mmol/L (3.6-5.0) 10/01/21 06:59 Chloride 107.5 mmol/L (98-107) H 10/01/21 06:59 Carbon Dioxide 21 mmol/L (22-30) L 10/01/21 06:59 Anion Gap 16 mmol/L 10/01/21 06:59 BUN 15 mg/dL (7-17) 10/01/21 06:59 Creatinine 0.8 mg/dL (0.6-1.2) 10/01/21 06:59 Estimated GFR > 60 ml/min 10/01/21 06:59 BUN/Creatinine Ratio 19 % 10/01/21 06:59 Glucose 224 mg/dL (65-100) H 10/01/21 06:59 POC Glucose 193 mg/dL (70-105) H 10/01/21 07:36 Calcium 9.1 mg/dL (8.4-10.2) 10/01/21 06:59 Total Bilirubin 0.20 mg/dL (0.1-1.2) 07/26/22 18:46 AST 15 units/L (5-40) 09/29/21 18:46 ALT 13 units/L (7-56) 09/29/21 18:46 Alkaline Phosphatase 96 units/L (35-129) 09/29/21 18:46 Troponin T < 0.010 ng/mL (0.00-0.029) 09/30/21 00:27 Total Protein 7.3 g/dL (6.3-8.2) 09/29/21 18:46 Albumin 3.7 g/dL (3.9-5) L 09/29/21 18:46 Albumin/Globulin Ratio 1.0 % 09/29/21 18:46 Triglycerides 81 mg/dL (2-149) 09/30/21 19:40 Cholesterol 243 mg/dL (50-199) H 09/30/21 19:40 LDL Cholesterol Direct 151 mg/dL (50-130) H 09/30/21 19:40 HDL Cholesterol 74 mg/dL (40-59) H 09/30/21 19:40 Cholesterol/HDL Ratio 3.28 % 09/30/21 19:40 Urine Color Straw (Yellow) 09/30/21 08:52 Urine Turbidity Clear (Clear) 09/30/21 08:52 Urine pH 6.0 (5.0-7.0) 09/30/21 08:52 Ur Specific [place] 1.005 (1.003-1.030) 09/30/21 08:52 Urine Protein <30 mg dl mg/dL (Negative) 09/30/21 08:52 Urine Glucose (UA) >2000 mg/dL (Negative) 09/30/21 08:52 Urine Ketones Negative mg/dL (Negative) 09/30/21 08:52 Urine Blood Negative (Negative) 09/30/21 08:52 Urine Nitrite Positive (Negative) 09/30/21 08:52 Ur Reducing Substances Not Reportable 09/30/21 08:52 Urine Bilirubin Negative (Negative) 09/30/21 08:52 Urine Ictotest Not Reportable 09/30/21 08:52 Urine Urobilinogen < 2.0 mg/dL (<2.0) 09/30/21 08:52 Ur Leukocyte Esterase Trace (Negative) 09/30/21 08:52 Urine WBC (Auto) 9.0 /HPF (0.0-6.0) H 09/30/21 08:52 Urine RBC (Auto) 3.0 /HPF (0.0-6.0) 09/30/21 08:52 U Epithel Cells (Auto) 5.0 /HPF (0-13.0) 09/30/21 08:52 Urine Mucus Few /HPF 09/30/21 08:52 Active Medications - Current Medications Current Medications: Generic Name Dose Route Start Last Admin Trade Name Freq PRN Reason Stop Dose Admin Acetaminophen 650 mg 09/30/21 05:58 09/30/21 08:37 Acetaminophen 325 Mg Tab PO 650 mg Q4H PRN Administration Pain MILD(1-3)/Fever >100.5/COLLINS Albuterol 2.5 mg 09/30/21 05:58 Albuterol 2.5 Mg/3 Ml Nebu IH Q3HRT PRN Shortness Of Breath Albuterol/Ipratropium 1 ampul 09/30/21 08:00 10/01/21 07:50 Ipratropium/Albuterol Sulfate 3 Ml Ampul.Neb IH Not Given Q6HRT KELSEY Amlodipine Besylate 10 mg 10/01/21 12:00 Amlodipine 10 Mg Tab PO QDAY KELSEY Aspirin 81 mg 09/30/21 10:00 10/01/21 09:37 Aspirin 81 Mg Tab Chew PO 81 mg QDAY KELSEY Administration Atorvastatin Calcium 40 mg 09/30/21 22:00 09/30/21 23:07 Atorvastatin 40 Mg Tab PO 40 mg QHS KELSEY Administration Carvedilol 12.5 mg 10/01/21 12:00 Carvedilol 12.5 Mg Tab PO BID KELSEY Clopidogrel Bisulfate 75 mg 09/30/21 10:00 10/01/21 09:37 Clopidogrel 75 Mg Tab PO 75 mg QDAY KELSEY Administration Dextrose 50 ml 09/30/21 08:19 Dextrose 50% In Water (25gm) 50 Ml Syringe IV Q30MIN PRN Hypoglycemia Protocol Famotidine 20 mg 10/01/21 22:00 Famotidine 20 Mg Tab PO BID KELSEY Heparin Sodium (Porcine) 5,000 unit 09/30/21 14:00 10/01/21 06:31 Heparin 5,000 Unit/1 Ml Vial SUB-Q 5,000 unit Q8HR KELSEY Administration Insulin Glargine 20 units 09/30/21 22:00 09/30/21 23:47 Insulin Glargine 100 Units/Ml SUB-Q 20 units QHS KELSEY Administration Insulin Human Lispro 0 unit 09/30/21 11:30 10/01/21 08:30 Insulin Lispro 100 Unit/Ml SUB-Q 2 unit ACHS KELSEY Administration Protocol Morphine Sulfate 2 mg 09/30/21 05:58 10/01/21 10:54 Morphine 2 Mg/1 Ml Inj IV 2 mg Q4H PRN Administration Pain, Moderate (4-6) Morphine Sulfate 4 mg 09/30/21 05:58 Morphine 4 Mg/1 Ml Inj IV Q4H PRN Pain , Severe (7-10) Ondansetron HCl 4 mg 09/30/21 05:58 Ondansetron 4 Mg/2 Ml Inj IV Q8H PRN Nausea And Vomiting Sodium Chloride 10 ml 09/30/21 10:00 10/01/21 09:37 Sodium Chloride 0.9% 10 Ml Flush Syringe IV 10 ml BID KELSEY Administration Sodium Chloride 10 ml 09/30/21 05:58 Sodium Chloride 0.9% 10 Ml Flush Syringe IV PRN PRN LINE FLUSH Nutrition/Malnutrition Assess - Dietary Evaluation Nutrition/Malnutrition Findings: Nutrition Notes Start: 09/30/21 14:36 Freq: Status: Active Protocol: Document 09/30/21 14:36 FLAVIA (Rec: 09/30/21 14:48 FLAVIA [id number]) Nutrition Notes Need for Assessment generated from: MD Order,Education Initial or Follow up Brief Note Current Diagnosis Coronary Artery Disease, Diabetes,Hypertension,Stroke, Hyperlipidemia Current Diet NPO (since 09/30 05:59). Height 5 ft 5 in Weight 68.039 kg [place] Body Weight (kg) 56.81 BMI 25.0 Weight change and time frame None provided at admision. Weight Status Appropriate Subjective/Other Information RD consult for nutrition education assessment. Pt currently on NPO. Pt is on Room Air, O2 saturation @ 100%, according to Physical Assessment History notes. Pt complains of abdominal pain , according to Physical Assessment History notes. Pt passed bedside swallow assessment on 09/30, according to Swallow Screen notes. Pt still in critical condition , not a candidate for Nutrition Education at the time, will assess feasibility on F/U. Percent of energy/protein needs met: Pt currently on NPO. Nutrition Intervention Follow-Up By: 10/02/21 Additional Comments Nutrition education will be provided at F/U, if feasible. Continue monitoring food tolerance, %PO intake of meals , and BM.
[2021-10-01] MEDS: carvediloL 12.5 MG TAB PO SCH ×2 (13:04→21:59)
[2021-10-01] MEDS: amLODIPine 10 MG TAB PO SCH (13:04)
[2021-10-01] MEDS: ONDANSETRON 4 MG/2 ML INJ IV PRN ×2 (16:02→23:49)
[2021-10-01] MEDS: metFORMIN 500 MG TAB PO SCH (22:00)
[2021-10-01] MEDS ORDERED: FAMOTIDINE 20 MG TAB PO SCH (22:00)
[2021-10-01] MEDS: INSULIN GLARGINE 100 UNITS/ML SUB-Q SCH (22:01)
[2021-10-02] MEDS: HEPARIN 5,000 UNIT/1 ML VIAL SUB-Q SCH ×3 (06:29→21:25)
[2021-10-02] MEDS: INSULIN LISPRO 100 UNIT/ML SUB-Q SCH ×4 (08:25→21:25)
[2021-10-02] MEDS: ASPIRIN 81 MG TAB CHEW PO SCH (09:25)
[2021-10-02] MEDS: carvediloL 12.5 MG TAB PO SCH ×2 (09:25→21:22)
[2021-10-02] MEDS: amLODIPine 10 MG TAB PO SCH (09:25)
[2021-10-02] MEDS: PANTOPRAZOLE 40 MG TAB PO SCH (09:25)
[2021-10-02] MEDS: metFORMIN 500 MG TAB PO SCH ×2 (09:25→17:06)
[2021-10-02] MEDS: CLOPIDOGREL 75 MG TAB PO SCH (09:25)
[2021-10-02] MEDS: MORPHINE 2 MG/1 ML INJ IV PRN ×2 (10:13→17:06)
--- NOTE | 2021-10-02 14:06 | Consultation ---
History of Present Illness - Reason for Consult Consult date: 10/02/21 Reason for consult: depression - History of Present Psychiatric Illness The patient was seen today. She is forgetful. She is upset, but cooperative. The patient says she's been asking for a bath all morning and no one has come to give her one. The patient says she suffers from depression and could not remember what she was taking. She says she's been off meds for a few weeks. The patient says she does take trazodone for sleep. 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 The patient denies SI/HI or hallucinations. PAST PSYCHIATRIC HISTORY: Diagnoses: Depression, bipolar Suicide attempts or Self-harm behavior: Denies Prior psychiatric hospitalizations:: Denies Substance Abuse history: Denies Previous psychiatric medications tried: Trazodone Outpatient treatment: Yes PAST MEDICAL HISTORY: CVA Family Psychiatric History None reported or documented SOCIAL HISTORY Marital Status: Single Living Arrangements: alone Employment Status: Disabled Access to guns/weapons: Denies Education: History of Abuse: Denies Legal History: Denies REVIEW OF SYSTEMS Constitutional: Negative for weight loss ENT: Negative for stridor Respiratory: Negative for cough or hemoptysis All other systems reviewed and are negative Diagnoses: Bipolar Disorder Treatment Plan Olanzapine 5mg po daily Trazodone 50mg po qhs Sitter: Defer to primary Medical: per primary Disposition: Do not recommend acute psychiatric inpatient treatment Will sign off. Thanks Case staffed with Dr. Alcala Medications and Allergies Allergies Allergy/AdvReac Type Severity Reaction Status Date / Time No Known Allergies Allergy Verified 09/29/21 17:23 Home Medications Medication Instructions Recorded Confirmed Last Taken Type Insulin Glargine [Lantus VIAL] 36 units SUB-Q QHS #1 vial 03/10/19 07/26/21 07/26/21 Rx Aspirin EC [Halfprin EC] 81 mg PO QDAY #30 tablet 08/04/21 Unknown Rx AtorvaSTATin [Lipitor] 40 mg PO QHS #30 tab 08/04/21 Unknown Rx Furosemide [Lasix TAB] 20 mg PO QDAY #30 tablet 08/04/21 Unknown Rx Pantoprazole [Protonix TAB] 40 mg PO QDAY #30 tablet 08/04/21 Unknown Rx amLODIPine 10 mg PO DAILY #14 tab 08/04/21 Unknown Rx carvediloL [Coreg] 12.5 mg PO BID #60 tablet 08/04/21 Unknown Rx metFORMIN [Glucophage] 1,000 mg PO BID #60 tablet 08/04/21 Unknown Rx Active Meds: Active Medications Acetaminophen (Acetaminophen 325 Mg Tab) 650 mg PO Q4H PRN PRN Reason: Pain MILD(1-3)/Fever >100.5/COLLINS Last Admin: 09/30/21 08:37 Dose: 650 mg Albuterol (Albuterol 2.5 Mg/3 Ml Nebu) 2.5 mg IH Q3HRT PRN PRN Reason: Shortness Of Breath Amlodipine Besylate (Amlodipine 10 Mg Tab) 10 mg PO QDAY [facility] Last Admin: 10/02/21 09:25 Dose: 10 mg Aspirin (Aspirin 81 Mg Tab Chew) 81 mg PO QDAY [facility] Last Admin: 10/02/21 09:25 Dose: 81 mg Atorvastatin Calcium (Atorvastatin 40 Mg Tab) 40 mg PO QHS [facility] Last Admin: 10/01/21 21:59 Dose: 40 mg Carvedilol (Carvedilol 12.5 Mg Tab) 12.5 mg PO BID [facility] Last Admin: 10/02/21 09:25 Dose: 12.5 mg Clopidogrel Bisulfate (Clopidogrel 75 Mg Tab) 75 mg PO QDAY [facility] Last Admin: 10/02/21 09:25 Dose: 75 mg Dextrose (Dextrose 50% In Water (25gm) 50 Ml Syringe) 50 ml IV Q30MIN PRN; Protocol PRN Reason: Hypoglycemia Heparin Sodium (Porcine) (Heparin 5,000 Unit/1 Ml Vial) 5,000 unit SUB-Q Q8HR [facility] Last Admin: 10/02/21 14:03 Dose: 5,000 unit Insulin Glargine (Insulin Glargine 100 Units/Ml) 20 units SUB-Q QHS [facility] Last Admin: 10/01/21 22:01 Dose: 20 units Insulin Human Lispro (Insulin Lispro 100 Unit/Ml) 0 unit SUB-Q [facility]; Protocol Last Admin: 10/02/21 12:30 Dose: Not Given Metformin HCl (Metformin 500 Mg Tab) 1,000 mg PO BIDDIAB [facility] Morphine Sulfate (Morphine 2 Mg/1 Ml Inj) 2 mg IV Q4H PRN PRN Reason: Pain, Moderate (4-6) Last Admin: 10/02/21 10:13 Dose: 2 mg Morphine Sulfate (Morphine 4 Mg/1 Ml Inj) 4 mg IV Q4H PRN PRN Reason: Pain , Severe (7-10) Ondansetron HCl (Ondansetron 4 Mg/2 Ml Inj) 4 mg IV Q8H PRN PRN Reason: Nausea And Vomiting Last Admin: 10/01/21 23:49 Dose: 4 mg Pantoprazole Sodium (Pantoprazole 40 Mg Tab) 40 mg PO QDAY [facility] Last Admin: 10/02/21 09:25 Dose: 40 mg Sodium Chloride (Sodium Chloride 0.9% 10 Ml Flush Syringe) 10 ml IV BID [facility] Last Admin: 10/02/21 09:25 Dose: 10 ml Sodium Chloride (Sodium Chloride 0.9% 10 Ml Flush Syringe) 10 ml IV PRN PRN PRN Reason: LINE FLUSH Mental Status Exam - Vital signs Last Vital Signs Temp 98.2 F 10/02/21 07:10 Pulse 62 10/02/21 07:10 Resp 20 10/02/21 12:00 BP 142/55 10/02/21 07:10 Pulse Ox 97 10/02/21 12:00 Results Result Diagrams: 10/01/21 06:59 10/01/21 06:59 Abnormal lab results 10/01/21 10/01/21 10/02/21 Range/Units 16:31 20:40 07:28 POC Glucose 198 H 307 H 152 H (70-105) mg/dL 10/02/21 Range/Units 12:58 POC Glucose 117 H (70-105) mg/dL All other labs normal.
--- NOTE | 2021-10-02 14:06 | Progress Note ---
Assessment and Plan Assessment and plan: #Acute ischemic CVA #Left facial numbness Unremarkable CT head noncontrast, CT angio head and neck MRI brain with and without contrast (08/31/2021) revealing "acute infarct involving posterior left parry radiata measuring approximately 2.5 cm in greatest curvilinear dimension". TTE (09/30/2021) revealing EF 55-60% with normal-sized LV, normal LV systolic function, mild diastolic dysfunction, normal-sized RV, hypokinetic RV, unremarkable for PFO, and RVSP is 17 mmHg. Hemoglobin A1c pending. Lipid profile: Triglycerides 89, cholesterol 243, LDL 151, HDL 74. 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 - hemoglobin A1c: Pending - home regimen: Metformin 1000 mg twice daily, glargine 36 units nightly - current regimen: Lantus 20 units daily + moderate SSI + metformin 1000mg BID - blood glucose goal 140-180 while inpatient - continue to monitor #CAD -Continue Plavix 75 mg daily and Lipitor 40 mg daily #GERD Continue home pantoprazole 40 mg daily #Advanced care planning -Disease education conducted, care plan discussed, diagnoses discussed, prognosis discussed, and patient acknowledges understanding with care plan -Time: +30 min #Discharge planning - Patient is pending subacute rehab authorization - Case management has been made aware. Disposition Plan: Pending subacute rehab authorization Total Time Spent with Patient (Minutes): 45 minutes History Interval history: No acute events overnight. Hospitalist Physical - Constitutional Vitals: Temp Pulse Resp BP Pulse Ox 98.2 F 62 20 142/55 97 10/02/21 07:10 10/02/21 07:10 10/02/21 12:00 10/02/21 07:10 10/02/21 12:00 General appearance: Present: no acute distress, well-nourished - EENT Eyes: Present: PERRL, EOM intact ENT: hearing intact, clear oral mucosa, dentition normal - Neck Neck: Present: supple, normal ROM - Respiratory Respiratory effort: normal Respiratory: bilateral: CTA - Cardiovascular Rhythm: regular Heart Sounds: Present: S1 & S2 - Extremities Extremities: no ischemia, pulses intact, pulses symmetrical, No edema, normal temperature, normal color Peripheral Pulses: within normal limits - Abdominal General gastrointestinal: soft, non-tender, non-distended, normal bowel sounds - Integumentary Integumentary: Present: clear, warm, dry - Psychiatric Psychiatric: depressed - Neurologic Neurologic: CNII-XII intact, focal deficits (Weakness of right upper and lower extremity) - Allied Health Allied health notes reviewed: nursing HEART Score - HEART Score Troponin: Troponin T < 0.010 ng/mL (0.00-0.029) 09/30/21 00:27 Results - Labs CBC & Chem 7: 10/01/21 06:59 10/01/21 06:59 Labs: Laboratory Last Values WBC 6.7 K/mm3 (4.5-11.0) 10/01/21 06:59 RBC 4.14 M/mm3 (3.65-5.03) 10/01/21 06:59 Hgb 11.5 gm/dl (10.1-14.3) 10/01/21 06:59 Hct 35.7 % (30.3-42.9) 10/01/21 06:59 MCV 86 fl (79-97) 10/01/21 06:59 MCH 28 pg (28-32) 10/01/21 06:59 MCHC 32 % (30-34) 10/01/21 06:59 RDW 13.0 % (13.2-15.2) L 10/01/21 06:59 Plt Count 246 K/mm3 (140-440) 10/01/21 06:59 Lymph % (Auto) 33.0 % (13.4-35.0) 10/01/21 06:59 Sullivan % (Auto) 5.6 % (0.0-7.3) 10/01/21 06:59 Eos % (Auto) 3.3 % (0.0-4.3) 10/01/21 06:59 Baso % (Auto) 0.2 % (0.0-1.8) 10/01/21 06:59 Lymph # (Auto) 2.2 K/mm3 (1.2-5.4) 10/01/21 06:59 Sullivan # (Auto) 0.4 K/mm3 (0.0-0.8) 10/01/21 06:59 Eos # (Auto) 0.2 K/mm3 (0.0-0.4) 10/01/21 06:59 Baso # (Auto) 0.0 K/mm3 (0.0-0.1) 10/01/21 06:59 Seg Neutrophils % 57.9 % (40.0-70.0) 10/01/21 06:59 Seg Neutrophils # 3.9 K/mm3 (1.8-7.7) 10/01/21 06:59 PT 12.5 Sec. (12.2-14.9) 09/30/21 01:08 INR 0.85 (0.87-1.13) L 09/30/21 01:08 APTT 28.0 Sec. (24.2-36.6) 09/30/21 01:08 Sodium 140 mmol/L (137-145) 10/01/21 06:59 Potassium 4.2 mmol/L (3.6-5.0) 10/01/21 06:59 Chloride 107.5 mmol/L (98-107) H 10/01/21 06:59 Carbon Dioxide 21 mmol/L (22-30) L 10/01/21 06:59 Anion Gap 16 mmol/L 10/01/21 06:59 BUN 15 mg/dL (7-17) 10/01/21 06:59 Creatinine 0.8 mg/dL (0.6-1.2) 10/01/21 06:59 Estimated GFR > 60 ml/min 10/01/21 06:59 BUN/Creatinine Ratio 19 % 10/01/21 06:59 Glucose 224 mg/dL (65-100) H 10/01/21 06:59 POC Glucose 117 mg/dL (70-105) H 10/02/21 12:58 Calcium 9.1 mg/dL (8.4-10.2) 10/01/21 06:59 Total Bilirubin 0.20 mg/dL (0.1-1.2) 09/29/21 18:46 AST 15 units/L (5-40) 09/29/21 18:46 ALT 13 units/L (7-56) 09/29/21 18:46 Alkaline Phosphatase 96 units/L (35-129) 09/29/21 18:46 Troponin T < 0.010 ng/mL (0.00-0.029) 09/30/21 00:27 Total Protein 7.3 g/dL (6.3-8.2) 09/29/21 18:46 Albumin 3.7 g/dL (3.9-5) L 09/29/21 18:46 Albumin/Globulin Ratio 1.0 % 09/29/21 18:46 Triglycerides 81 mg/dL (2-149) 09/30/21 19:40 Cholesterol 243 mg/dL (50-199) H 09/30/21 19:40 LDL Cholesterol Direct 151 mg/dL (50-130) H 09/30/21 19:40 HDL Cholesterol 74 mg/dL (40-59) H 09/30/21 19:40 Cholesterol/HDL Ratio 3.28 % 09/30/21 19:40 Urine Color Straw (Yellow) 09/30/21 08:52 Urine Turbidity Clear (Clear) 09/30/21 08:52 Urine pH 6.0 (5.0-7.0) 09/30/21 08:52 Ur Specific [place] 1.005 (1.003-1.030) 09/30/21 08:52 Urine Protein <30 mg dl mg/dL (Negative) 09/30/21 08:52 Urine Glucose (UA) >2000 mg/dL (Negative) 09/30/21 08:52 Urine Ketones Negative mg/dL (Negative) 09/30/21 08:52 Urine Blood Negative (Negative) 09/30/21 08:52 Urine Nitrite Positive (Negative) 09/30/21 08:52 Ur Reducing Substances Not Reportable 09/30/21 08:52 Urine Bilirubin Negative (Negative) 09/30/21 08:52 Urine Ictotest Not Reportable 09/30/21 08:52 Urine Urobilinogen < 2.0 mg/dL (<2.0) 09/30/21 08:52 Ur Leukocyte Esterase Trace (Negative) 09/30/21 08:52 Urine WBC (Auto) 9.0 /HPF (0.0-6.0) H 09/30/21 08:52 Urine RBC (Auto) 3.0 /HPF (0.0-6.0) 09/30/21 08:52 U Epithel Cells (Auto) 5.0 /HPF (0-13.0) 09/30/21 08:52 Urine Mucus Few /HPF 09/30/21 08:52 Microbiology: Microbiology 09/30/21 08:52 Urine,Clean Catch Urine Culture - Preliminary Franco/IV: Voiding Method External Female Catheter Active Medications - Current Medications Current Medications: Generic Name Dose Route Start Last Admin Trade Name Freq PRN Reason Stop Dose Admin Acetaminophen 650 mg 09/30/21 05:58 09/30/21 08:37 Acetaminophen 325 Mg Tab PO 650 mg Q4H PRN Administration Pain MILD(1-3)/Fever >100.5/COLLINS Albuterol 2.5 mg 09/30/21 05:58 Albuterol 2.5 Mg/3 Ml Nebu IH Q3HRT PRN Shortness Of Breath Amlodipine Besylate 10 mg 10/01/21 12:00 10/02/21 09:25 Amlodipine 10 Mg Tab PO 10 mg QDAY [facility] Administration Aspirin 81 mg 09/30/21 10:00 10/02/21 09:25 Aspirin 81 Mg Tab Chew PO 81 mg QDAY [facility] Administration Atorvastatin Calcium 40 mg 09/30/21 22:00 10/01/21 21:59 Atorvastatin 40 Mg Tab PO 40 mg QHS [facility] Administration Carvedilol 12.5 mg 10/01/21 12:00 10/02/21 09:25 Carvedilol 12.5 Mg Tab PO 12.5 mg BID [facility] Administration Clopidogrel Bisulfate 75 mg 09/30/21 10:00 10/02/21 09:25 Clopidogrel 75 Mg Tab PO 75 mg QDAY [facility] Administration Dextrose 50 ml 09/30/21 08:19 Dextrose 50% In Water (25gm) 50 Ml Syringe IV Q30MIN PRN Hypoglycemia Protocol Heparin Sodium (Porcine) 5,000 unit 09/30/21 14:00 10/02/21 14:03 Heparin 5,000 Unit/1 Ml Vial SUB-Q 5,000 unit Q8HR [facility] Administration Insulin Glargine 20 units 09/30/21 22:00 10/01/21 22:01 Insulin Glargine 100 Units/Ml SUB-Q 20 units QHS [facility] Administration Insulin Human Lispro 0 unit 09/30/21 11:30 10/02/21 12:30 Insulin Lispro 100 Unit/Ml SUB-Q Not Given [facility] Protocol Metformin HCl 1,000 mg 10/02/21 17:00 Metformin 500 Mg Tab PO BIDDIAB [facility] Morphine Sulfate 2 mg 09/30/21 05:58 10/02/21 10:13 Morphine 2 Mg/1 Ml Inj IV 2 mg Q4H PRN Administration Pain, Moderate (4-6) Morphine Sulfate 4 mg 09/30/21 05:58 Morphine 4 Mg/1 Ml Inj IV Q4H PRN Pain , Severe (7-10) Ondansetron HCl 4 mg 09/30/21 05:58 10/01/21 23:49 Ondansetron 4 Mg/2 Ml Inj IV 4 mg Q8H PRN Administration Nausea And Vomiting Pantoprazole Sodium 40 mg 10/02/21 10:00 10/02/21 09:25 Pantoprazole 40 Mg Tab PO 40 mg QDAY [facility] Administration Sodium Chloride 10 ml 09/30/21 10:00 10/02/21 09:25 Sodium Chloride 0.9% 10 Ml Flush Syringe IV 10 ml BID [facility] Administration Sodium Chloride 10 ml 09/30/21 05:58 Sodium Chloride 0.9% 10 Ml Flush Syringe IV PRN PRN LINE FLUSH Nutrition/Malnutrition Assess - Dietary Evaluation Nutrition/Malnutrition Findings: Nutrition Notes Start: 09/30/21 14:36 Freq: Status: Active Protocol: Document 10/02/21 10:38 FLAVIA (Rec: 10/02/21 10:58 FLAVIA [email or web address]) Nutrition Notes Initial or Follow up Assessment Current Diagnosis Coronary Artery Disease, Diabetes,Hypertension,Stroke, Hyperlipidemia Other Pertinent Diagnosis GERD. Current Diet Cardiac Diet (since D 09/30). Labs/Tests 10/02: Cl 107.5, CO2 21, Glu 224. Pertinent Medications 10/01: Lantus 20U, Humalog 2U, others nutritionally unremarkable. Height 5 ft 5 in Weight 66.2 kg [place] Body Weight (kg) 56.81 BMI 24.3 Weight change and time frame 1.839 Kg body weight loss in 2 days reported. Weight Status Appropriate Subjective/Other Information RD consult for routine F/U on dietary advbancement. Diet advanced to PO, No reports available on Pt's PO intake of meals at the time, will assess at F/U. Pt is on Room Air, O2 saturation @ 98%, according to Physical Assessment History notes. Pt passed bedside swallow assessment on 09/30, according to Swallow Screen notes. Percent of energy/protein needs met: Prescribed Cardiac Diet provides for energy/protein needs (2,230 Kcal/85 g) during LOS. Burn Absent Trauma Absent GI Symptoms None Food Allergy No Skin Integrity/Comment Assessment WNL. 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 No Is Patient Ambulatory and/or Out of Bed No REE-([facility]-confined to bed) [phone] Calculation Used for Recommendations [facility] Additional Notes Protein: 0.8-1 g/Kg ABW; 53-66 g/day. Fluids: 1 ml/Kcal, or as per MD. Nutrition Intervention Change Diet Order: Continue Cardiac Diet. Follow-Up By: 10/09/21 Additional Comments Continue monitoring food tolerance, %PO intake of meals , and BM.
[2021-10-02] MEDS: traZODone 50 MG TAB PO SCH (21:22)
[2021-10-02] MEDS: INSULIN GLARGINE 100 UNITS/ML SUB-Q SCH (21:24)
[2021-10-03] MEDS: HEPARIN 5,000 UNIT/1 ML VIAL SUB-Q SCH ×3 (05:56→21:25)
[2021-10-03] MEDS: ONDANSETRON 4 MG/2 ML INJ IV PRN (08:30)
--- NOTE | 2021-10-03 08:47 | Progress Note ---
Assessment and Plan Assessment and plan: #Acute ischemic CVA #Left facial numbness Unremarkable CT head noncontrast, CT angio head and neck MRI brain with and without contrast (08/31/2021) revealing "acute infarct involving posterior left parry radiata measuring approximately 2.5 cm in greatest curvilinear dimension". TTE (09/30/2021) revealing EF 55-60% with normal-sized LV, normal LV systolic function, mild diastolic dysfunction, normal-sized RV, hypokinetic RV, unremarkable for PFO, and RVSP is 17 mmHg. Hemoglobin A1c pending. Lipid profile: Triglycerides 89, cholesterol 243, LDL 151, HDL 74. 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 - hemoglobin A1c: Pending - home regimen: Metformin 1000 mg twice daily, glargine 36 units nightly - current regimen: Lantus 25 units daily + moderate SSI + metformin 1000mg BID - blood glucose goal 140-180 while inpatient - continue to monitor #CAD -Continue Plavix 75 mg daily and Lipitor 40 mg daily #GERD Continue home pantoprazole 40 mg daily #Advanced care planning -Disease education conducted, care plan discussed, diagnoses discussed, prognosis discussed, and patient acknowledges understanding with care plan -Time: +30 min #Discharge planning - Patient is pending subacute rehab authorization - Case management has been made aware. Disposition Plan: Pending subacute rehab authorization Total Time Spent with Patient (Minutes): 30 minutes History Interval history: No acute events overnight. Hospitalist Physical - Constitutional Vitals: Temp Pulse Resp BP Pulse Ox 99.3 F 68 18 150/54 100 10/03/21 08:22 10/03/21 08:22 10/03/21 03:31 10/03/21 08:23 10/03/21 08:22 General appearance: Present: no acute distress, well-nourished - EENT Eyes: Present: PERRL, EOM intact ENT: hearing intact, clear oral mucosa, dentition normal - Neck Neck: Present: supple, normal ROM - Respiratory Respiratory effort: normal Respiratory: bilateral: CTA - Cardiovascular Rhythm: regular Heart Sounds: Present: S1 & S2 - Extremities Extremities: no ischemia, pulses intact, pulses symmetrical, No edema, normal temperature, normal color Peripheral Pulses: within normal limits - Abdominal General gastrointestinal: soft, non-tender, non-distended, normal bowel sounds - Integumentary Integumentary: Present: clear, warm, dry - Psychiatric Psychiatric: appropriate mood/affect, intact judgment & insight, cooperative, depressed - Neurologic Neurologic: CNII-XII intact, focal deficits (Weakness of right upper and lower extremity) - Allied Health Allied health notes reviewed: nursing HEART Score - HEART Score Troponin: Troponin T < 0.010 ng/mL (0.00-0.029) 09/30/21 00:27 Results - Labs CBC & Chem 7: 10/01/21 06:59 10/01/21 06:59 Labs: Laboratory Last Values WBC 6.7 K/mm3 (4.5-11.0) 10/01/21 06:59 RBC 4.14 M/mm3 (3.65-5.03) 10/01/21 06:59 Hgb 11.5 gm/dl (10.1-14.3) 10/01/21 06:59 Hct 35.7 % (30.3-42.9) 10/01/21 06:59 MCV 86 fl (79-97) 10/01/21 06:59 MCH 28 pg (28-32) 10/01/21 06:59 MCHC 32 % (30-34) 10/01/21 06:59 RDW 13.0 % (13.2-15.2) L 10/01/21 06:59 Plt Count 246 K/mm3 (140-440) 10/01/21 06:59 Lymph % (Auto) 33.0 % (13.4-35.0) 10/01/21 06:59 [place] % (Auto) 5.6 % (0.0-7.3) 10/01/21 06:59 Eos % (Auto) 3.3 % (0.0-4.3) 10/01/21 06:59 Baso % (Auto) 0.2 % (0.0-1.8) 10/01/21 06:59 Lymph # (Auto) 2.2 K/mm3 (1.2-5.4) 10/01/21 06:59 [place] # (Auto) 0.4 K/mm3 (0.0-0.8) 10/01/21 06:59 Eos # (Auto) 0.2 K/mm3 (0.0-0.4) 10/01/21 06:59 Baso # (Auto) 0.0 K/mm3 (0.0-0.1) 10/01/21 06:59 Seg Neutrophils % 57.9 % (40.0-70.0) 10/01/21 06:59 Seg Neutrophils # 3.9 K/mm3 (1.8-7.7) 10/01/21 06:59 PT 12.5 Sec. (12.2-14.9) 09/30/21 01:08 INR 0.85 (0.87-1.13) L 09/30/21 01:08 APTT 28.0 Sec. (24.2-36.6) 09/30/21 01:08 Sodium 140 mmol/L (137-145) 10/01/21 06:59 Potassium 4.2 mmol/L (3.6-5.0) 10/01/21 06:59 Chloride 107.5 mmol/L (98-107) H 10/01/21 06:59 Carbon Dioxide 21 mmol/L (22-30) L 10/01/21 06:59 Anion Gap 16 mmol/L 10/01/21 06:59 BUN 15 mg/dL (7-17) 10/01/21 06:59 Creatinine 0.8 mg/dL (0.6-1.2) 10/01/21 06:59 Estimated GFR > 60 ml/min 10/01/21 06:59 BUN/Creatinine Ratio 19 % 10/01/21 06:59 Glucose 224 mg/dL (65-100) H 10/01/21 06:59 POC Glucose 177 mg/dL (70-105) H 10/03/21 07:24 Calcium 9.1 mg/dL (8.4-10.2) 10/01/21 06:59 Total Bilirubin 0.20 mg/dL (0.1-1.2) 09/29/21 18:46 AST 15 units/L (5-40) 09/29/21 18:46 ALT 13 units/L (7-56) 09/29/21 18:46 Alkaline Phosphatase 96 units/L (35-129) 09/29/21 18:46 Troponin T < 0.010 ng/mL (0.00-0.029) 09/30/21 00:27 Total Protein 7.3 g/dL (6.3-8.2) 09/29/21 18:46 Albumin 3.7 g/dL (3.9-5) L 09/29/21 18:46 Albumin/Globulin Ratio 1.0 % 09/29/21 18:46 Triglycerides 81 mg/dL (2-149) 09/30/21 19:40 Cholesterol 243 mg/dL (50-199) H 09/30/21 19:40 LDL Cholesterol Direct 151 mg/dL (50-130) H 09/30/21 19:40 HDL Cholesterol 74 mg/dL (40-59) H 09/30/21 19:40 Cholesterol/HDL Ratio 3.28 % 09/30/21 19:40 Urine Color Straw (Yellow) 09/30/21 08:52 Urine Turbidity Clear (Clear) 09/30/21 08:52 Urine pH 6.0 (5.0-7.0) 09/30/21 08:52 Ur Specific [place] 1.005 (1.003-1.030) 09/30/21 08:52 Urine Protein <30 mg dl mg/dL (Negative) 09/30/21 08:52 Urine Glucose (UA) >2000 mg/dL (Negative) 09/30/21 08:52 Urine Ketones Negative mg/dL (Negative) 09/30/21 08:52 Urine Blood Negative (Negative) 09/30/21 08:52 Urine Nitrite Positive (Negative) 09/30/21 08:52 Ur Reducing Substances Not Reportable 09/30/21 08:52 Urine Bilirubin Negative (Negative) 09/30/21 08:52 Urine Ictotest Not Reportable 09/30/21 08:52 Urine Urobilinogen < 2.0 mg/dL (<2.0) 09/30/21 08:52 Ur Leukocyte Esterase Trace (Negative) 09/30/21 08:52 Urine WBC (Auto) 9.0 /HPF (0.0-6.0) H 09/30/21 08:52 Urine RBC (Auto) 3.0 /HPF (0.0-6.0) 09/30/21 08:52 U Epithel Cells (Auto) 5.0 /HPF (0-13.0) 09/30/21 08:52 Urine Mucus Few /HPF 09/30/21 08:52 Microbiology: Microbiology 09/30/21 08:52 Urine,Clean Catch Urine Culture - Final Franco/IV: Voiding Method External Female Catheter Active Medications - Current Medications Current Medications: Generic Name Dose Route Start Last Admin Trade Name Freq PRN Reason Stop Dose Admin Acetaminophen 650 mg 09/30/21 05:58 09/30/21 08:37 Acetaminophen 325 Mg Tab PO 650 mg Q4H PRN Administration Pain MILD(1-3)/Fever >100.5/COLLINS Albuterol 2.5 mg 09/30/21 05:58 Albuterol 2.5 Mg/3 Ml Nebu IH Q3HRT PRN Shortness Of Breath Amlodipine Besylate 10 mg 10/01/21 12:00 10/02/21 09:25 Amlodipine 10 Mg Tab PO 10 mg QDAY KELSEY Administration Aspirin 81 mg 09/30/21 10:00 10/02/21 09:25 Aspirin 81 Mg Tab Chew PO 81 mg QDAY KELSEY Administration Atorvastatin Calcium 40 mg 09/30/21 22:00 10/02/21 21:22 Atorvastatin 40 Mg Tab PO 40 mg QHS KELSEY Administration Carvedilol 12.5 mg 10/01/21 12:00 10/02/21 21:22 Carvedilol 12.5 Mg Tab PO 12.5 mg BID KELSEY Administration Clopidogrel Bisulfate 75 mg 09/30/21 10:00 10/02/21 09:25 Clopidogrel 75 Mg Tab PO 75 mg QDAY KELSEY Administration Dextrose 50 ml 09/30/21 08:19 Dextrose 50% In Water (25gm) 50 Ml Syringe IV Q30MIN PRN Hypoglycemia Protocol Heparin Sodium (Porcine) 5,000 unit 09/30/21 14:00 10/03/21 05:56 Heparin 5,000 Unit/1 Ml Vial SUB-Q 5,000 unit Q8HR KELSEY Administration Insulin Human Lispro 0 unit 09/30/21 11:30 10/02/21 21:25 Insulin Lispro 100 Unit/Ml SUB-Q 3 unit ACHS KELSEY Administration Protocol Metformin HCl 1,000 mg 10/02/21 17:00 10/02/21 17:06 Metformin 500 Mg Tab PO 1,000 mg BIDDIAB KELSEY Administration Morphine Sulfate 2 mg 09/30/21 05:58 10/02/21 17:06 Morphine 2 Mg/1 Ml Inj IV 2 mg Q4H PRN Administration Pain, Moderate (4-6) Morphine Sulfate 4 mg 09/30/21 05:58 Morphine 4 Mg/1 Ml Inj IV Q4H PRN Pain , Severe (7-10) Olanzapine 5 mg 10/02/21 15:00 10/02/21 16:24 Olanzapine 5 Mg Tab PO 5 mg QDAY KELSEY Administration Ondansetron HCl 4 mg 09/30/21 05:58 10/01/21 23:49 Ondansetron 4 Mg/2 Ml Inj IV 4 mg Q8H PRN Administration Nausea And Vomiting Pantoprazole Sodium 40 mg 10/02/21 10:00 10/02/21 09:25 Pantoprazole 40 Mg Tab PO 40 mg QDAY KELSEY Administration Sodium Chloride 10 ml 09/30/21 10:00 10/02/21 21:26 Sodium Chloride 0.9% 10 Ml Flush Syringe IV 10 ml BID KELSEY Administration Sodium Chloride 10 ml 09/30/21 05:58 Sodium Chloride 0.9% 10 Ml Flush Syringe IV PRN PRN LINE FLUSH Trazodone HCl 50 mg 10/02/21 22:00 10/02/21 21:22 Trazodone 50 Mg Tab PO 50 mg QHS KELSEY Administration Nutrition/Malnutrition Assess - Dietary Evaluation Nutrition/Malnutrition Findings: Nutrition Notes Start: 09/30/21 14:36 Freq: Status: Active Protocol: Document 10/02/21 10:38 FLAVIA (Rec: 10/02/21 10:58 FLAVIA [email or web address]) Nutrition Notes Initial or Follow up Assessment Current Diagnosis Coronary Artery Disease, Diabetes,Hypertension,Stroke, Hyperlipidemia Other Pertinent Diagnosis GERD. Current Diet Cardiac Diet (since D 09/30). Labs/Tests 10/02: Cl 107.5, CO2 21, Glu 224. Pertinent Medications 10/01: Lantus 20U, Humalog 2U, others nutritionally unremarkable. Height 5 ft 5 in Weight 66.2 kg [place] Body Weight (kg) 56.81 BMI 24.3 Weight change and time frame 1.839 Kg body weight loss in 2 days reported. Weight Status Appropriate Subjective/Other Information RD consult for routine F/U on dietary advbancement. Diet advanced to PO, No reports available on Pt's PO intake of meals at the time, will assess at F/U. Pt is on Room Air, O2 saturation @ 98%, according to Physical Assessment History notes. Pt passed bedside swallow assessment on 09/30, according to Swallow Screen notes. Percent of energy/protein needs met: Prescribed Cardiac Diet provides for energy/protein needs (2,230 Kcal/85 g) during LOS. Burn Absent Trauma Absent GI Symptoms None Food Allergy No Skin Integrity/Comment Assessment WNL. 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 No Is Patient Ambulatory and/or Out of Bed No REE-([facility]confined [facility]) 1496.220 [facility] Additional Notes Protein: 0.8-1 g/Kg ABW; 53-66 g/day. Fluids: 1 ml/Kcal, or as per MD. Nutrition Intervention Change Diet Order: Continue Cardiac Diet. Follow-Up By: 10/09/21 Additional Comments Continue monitoring food tolerance, %PO intake of meals , and BM.
[2021-10-03] MEDS: ASPIRIN 81 MG TAB CHEW PO SCH (10:27)
[2021-10-03] MEDS: ACETAMINOPHEN 325 MG TAB PO PRN (10:27)
[2021-10-03] MEDS: amLODIPine 10 MG TAB PO SCH (10:28)
[2021-10-03] MEDS: CLOPIDOGREL 75 MG TAB PO SCH (10:28)
[2021-10-03] MEDS: carvediloL 12.5 MG TAB PO SCH ×2 (10:28→21:25)
[2021-10-03] MEDS: PANTOPRAZOLE 40 MG TAB PO SCH (10:28)
[2021-10-03] MEDS: metFORMIN 500 MG TAB PO SCH ×2 (10:31→16:50)
[2021-10-03] MEDS: INSULIN LISPRO 100 UNIT/ML SUB-Q SCH ×4 (10:31→21:26)
[2021-10-03] MEDS: MORPHINE 2 MG/1 ML INJ IV PRN ×2 (10:53→16:50)
[2021-10-03] MEDS: traZODone 50 MG TAB PO SCH (21:25)
[2021-10-03] MEDS: INSULIN GLARGINE 100 UNITS/ML SUB-Q SCH (21:25)
[2021-10-04] MEDS: ONDANSETRON 4 MG/2 ML INJ IV PRN ×2 (00:06→21:41)
[2021-10-04] MEDS: MORPHINE 4 MG/1 ML INJ IV PRN ×2 (00:06→21:41)
[2021-10-04] MEDS: HEPARIN 5,000 UNIT/1 ML VIAL SUB-Q SCH ×3 (05:35→21:34)
--- NOTE | 2021-10-04 09:19 | Progress Note ---
Assessment and Plan Assessment and plan: #Acute ischemic CVA #Left facial numbness Unremarkable CT head noncontrast, CT angio head and neck MRI brain with and without contrast (08/31/2021) revealing "acute infarct involving posterior left parry radiata measuring approximately 2.5 cm in greatest curvilinear dimension". TTE (09/30/2021) revealing EF 55-60% with normal-sized LV, normal LV systolic function, mild diastolic dysfunction, normal-sized RV, hypokinetic RV, unremarkable for PFO, and RVSP is 17 mmHg. Hemoglobin A1c pending. Lipid profile: Triglycerides 89, cholesterol 243, LDL 151, HDL 74. Continue aspirin 81 mg daily + Plavix 75 mg daily + Lipitor 40 mg daily Neurology consulted; appreciate recs Physical therapy and Occupational Therapy consulted; recommending subacute rehab #Depression Likely secondary to current health diagnosis Psychiatry consulted; appreciate recs Continue olanzapine 5 mg daily and trazodone 50 mg daily #Hypertension #Hyperlipidemia - home medications: Coreg 12.5 mg twice daily, amlodipine 10 mg daily, Lasix 20 mg daily, atorvastatin 40 mg daily, aspirin 81 mg daily - current medications: Atorvastatin 40 mg daily, coreg 12.5mg BID, and amlodipine 10mg daily - SBP goal <160 and DBP goal <90 while inpatient - continue to monitor #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 - hemoglobin A1c: Pending - home regimen: Metformin 1000 mg twice daily, glargine 36 units nightly - current regimen: Lantus 25 units daily + moderate SSI + metformin 1000mg BID - blood glucose goal 140-180 while inpatient - continue to monitor #CAD -Continue Plavix 75 mg daily and Lipitor 40 mg daily #GERD Continue home pantoprazole 40 mg daily #Advanced care planning -Disease education conducted, care plan discussed, diagnoses discussed, prognosis discussed, and patient acknowledges understanding with care plan -Time: +30 min #Discharge planning - Patient is pending subacute rehab authorization - Case management has been made aware. Disposition Plan: Pending subacute rehab authorization Total Time Spent with Patient (Minutes): 30 minutes History Interval history: No acute events overnight. Hospitalist Physical - Constitutional Vitals: Temp Pulse Resp BP Pulse Ox 98.9 F 57 L 18 160/71 100 10/04/21 08:01 10/04/21 08:01 10/04/21 05:36 10/04/21 08:01 10/04/21 08:01 General appearance: Present: no acute distress, well-nourished - EENT Eyes: Present: PERRL, EOM intact ENT: hearing intact, clear oral mucosa, dentition normal - Neck Neck: Present: supple, normal ROM - Respiratory Respiratory effort: normal Respiratory: bilateral: CTA - Cardiovascular Rhythm: regular Heart Sounds: Present: S1 & S2 - Extremities Extremities: no ischemia, pulses intact, pulses symmetrical, No edema, normal temperature, normal color Peripheral Pulses: within normal limits - Abdominal General gastrointestinal: soft, non-tender, non-distended, normal bowel sounds - Integumentary Integumentary: Present: clear, warm, dry - Psychiatric Psychiatric: intact judgment & insight, cooperative, depressed - Neurologic Neurologic: CNII-XII intact, focal deficits (Weakness of right upper and lower extremity.) - Allied Health Allied health notes reviewed: nursing HEART Score - HEART Score Troponin: Troponin T < 0.010 ng/mL (0.00-0.029) 09/30/21 00:27 Results - Labs CBC & Chem 7: 10/01/21 06:59 10/01/21 06:59 Labs: Laboratory Last Values WBC 6.7 K/mm3 (4.5-11.0) 10/01/21 06:59 RBC 4.14 M/mm3 (3.65-5.03) 10/01/21 06:59 Hgb 11.5 gm/dl (10.1-14.3) 10/01/21 06:59 Hct 35.7 % (30.3-42.9) 10/01/21 06:59 MCV 86 fl (79-97) 10/01/21 06:59 MCH 28 pg (28-32) 10/01/21 06:59 MCHC 32 % (30-34) 10/01/21 06:59 RDW 13.0 % (13.2-15.2) L 10/01/21 06:59 Plt Count 246 K/mm3 (140-440) 10/01/21 06:59 Lymph % (Auto) 33.0 % (13.4-35.0) 10/01/21 06:59 [place] % (Auto) 5.6 % (0.0-7.3) 10/01/21 06:59 Eos % (Auto) 3.3 % (0.0-4.3) 10/01/21 06:59 Baso % (Auto) 0.2 % (0.0-1.8) 10/01/21 06:59 Lymph # (Auto) 2.2 K/mm3 (1.2-5.4) 10/01/21 06:59 [place] # (Auto) 0.4 K/mm3 (0.0-0.8) 10/01/21 06:59 Eos # (Auto) 0.2 K/mm3 (0.0-0.4) 10/01/21 06:59 Baso # (Auto) 0.0 K/mm3 (0.0-0.1) 10/01/21 06:59 Seg Neutrophils % 57.9 % (40.0-70.0) 10/01/21 06:59 Seg Neutrophils # 3.9 K/mm3 (1.8-7.7) 10/01/21 06:59 PT 12.5 Sec. (12.2-14.9) 09/30/21 01:08 INR 0.85 (0.87-1.13) L 09/30/21 01:08 APTT 28.0 Sec. (24.2-36.6) 09/30/21 01:08 Sodium 140 mmol/L (137-145) 10/01/21 06:59 Potassium 4.2 mmol/L (3.6-5.0) 10/01/21 06:59 Chloride 107.5 mmol/L (98-107) H 10/01/21 06:59 Carbon Dioxide 21 mmol/L (22-30) L 10/01/21 06:59 Anion Gap 16 mmol/L 10/01/21 06:59 BUN 15 mg/dL (7-17) 10/01/21 06:59 Creatinine 0.8 mg/dL (0.6-1.2) 10/01/21 06:59 Estimated GFR > 60 ml/min 10/01/21 06:59 BUN/Creatinine Ratio 19 % 10/01/21 06:59 Glucose 224 mg/dL (65-100) H 10/01/21 06:59 POC Glucose 160 mg/dL (70-105) H 10/04/21 07:21 Calcium 9.1 mg/dL (8.4-10.2) 10/01/21 06:59 Total Bilirubin 0.20 mg/dL (0.1-1.2) 09/29/21 18:46 AST 15 units/L (5-40) 09/29/21 18:46 ALT 13 units/L (7-56) 09/29/21 18:46 Alkaline Phosphatase 96 units/L (35-129) 09/29/21 18:46 Troponin T < 0.010 ng/mL (0.00-0.029) 09/30/21 00:27 Total Protein 7.3 g/dL (6.3-8.2) 09/29/21 18:46 Albumin 3.7 g/dL (3.9-5) L 09/29/21 18:46 Albumin/Globulin Ratio 1.0 % 09/29/21 18:46 Triglycerides 81 mg/dL (2-149) 09/30/21 19:40 Cholesterol 243 mg/dL (50-199) H 09/30/21 19:40 LDL Cholesterol Direct 151 mg/dL (50-130) H 09/30/21 19:40 HDL Cholesterol 74 mg/dL (40-59) H 09/30/21 19:40 Cholesterol/HDL Ratio 3.28 % 09/30/21 19:40 Urine Color Straw (Yellow) 09/30/21 08:52 Urine Turbidity Clear (Clear) 09/30/21 08:52 Urine pH 6.0 (5.0-7.0) 09/30/21 08:52 Ur Specific [place] 1.005 (1.003-1.030) 09/30/21 08:52 Urine Protein <30 mg dl mg/dL (Negative) 09/30/21 08:52 Urine Glucose (UA) >2000 mg/dL (Negative) 09/30/21 08:52 Urine Ketones Negative mg/dL (Negative) 09/30/21 08:52 Urine Blood Negative (Negative) 09/30/21 08:52 Urine Nitrite Positive (Negative) 09/30/21 08:52 Ur Reducing Substances Not Reportable 09/30/21 08:52 Urine Bilirubin Negative (Negative) 09/30/21 08:52 Urine Ictotest Not Reportable 09/30/21 08:52 Urine Urobilinogen < 2.0 mg/dL (<2.0) 09/30/21 08:52 Ur Leukocyte Esterase Trace (Negative) 09/30/21 08:52 Urine WBC (Auto) 9.0 /HPF (0.0-6.0) H 09/30/21 08:52 Urine RBC (Auto) 3.0 /HPF (0.0-6.0) 09/30/21 08:52 U Epithel Cells (Auto) 5.0 /HPF (0-13.0) 09/30/21 08:52 Urine Mucus Few /HPF 09/30/21 08:52 Coronavirus (PCR) Negative (Negative) 10/03/21 11:57 Franco/IV: Voiding Method External Female Catheter Active Medications - Current Medications Current Medications: Generic Name Dose Route Start Last Admin Trade Name Freq PRN Reason Stop Dose Admin Acetaminophen 650 mg 09/30/21 05:58 10/03/21 10:27 Acetaminophen 325 Mg Tab PO 650 mg Q4H PRN Administration Pain MILD(1-3)/Fever >100.5/COLLINS Albuterol 2.5 mg 09/30/21 05:58 Albuterol 2.5 Mg/3 Ml Nebu IH Q3HRT PRN Shortness Of Breath Amlodipine Besylate 10 mg 10/01/21 12:00 10/03/21 10:28 Amlodipine 10 Mg Tab PO 10 mg QDAY KELSEY Administration Aspirin 81 mg 09/30/21 10:00 10/03/21 10:27 Aspirin 81 Mg Tab Chew PO 81 mg QDAY KELSEY Administration Atorvastatin Calcium 40 mg 09/30/21 22:00 10/03/21 21:25 Atorvastatin 40 Mg Tab PO 40 mg QHS KELSEY Administration Carvedilol 12.5 mg 10/01/21 12:00 10/03/21 21:25 Carvedilol 12.5 Mg Tab PO 12.5 mg BID KELSEY Administration Clopidogrel Bisulfate 75 mg 09/30/21 10:00 10/03/21 10:28 Clopidogrel 75 Mg Tab PO 75 mg QDAY KELSEY Administration Dextrose 50 ml 09/30/21 08:19 Dextrose 50% In Water (25gm) 50 Ml Syringe IV Q30MIN PRN Hypoglycemia Protocol Heparin Sodium (Porcine) 5,000 unit 09/30/21 14:00 10/04/21 05:35 Heparin 5,000 Unit/1 Ml Vial SUB-Q 5,000 unit Q8HR KELSEY Administration Insulin Glargine 25 units 07/30/22 22:00 10/03/21 21:25 Insulin Glargine 100 Units/Ml SUB-Q 25 units QHS KELSEY Administration Insulin Human Lispro 0 unit 09/30/21 11:30 10/03/21 21:26 Insulin Lispro 100 Unit/Ml SUB-Q 2 unit ACHS KELSEY Administration Protocol Metformin HCl 1,000 mg 10/02/21 17:00 10/03/21 16:50 Metformin 500 Mg Tab PO 1,000 mg BIDDIAB KELSEY Administration Morphine Sulfate 2 mg 09/30/21 05:58 10/03/21 16:50 Morphine 2 Mg/1 Ml Inj IV 2 mg Q4H PRN Administration Pain, Moderate (4-6) Morphine Sulfate 4 mg 09/30/21 05:58 10/04/21 00:06 Morphine 4 Mg/1 Ml Inj IV 4 mg Q4H PRN Administration Pain , Severe (7-10) Olanzapine 5 mg 10/02/21 15:00 10/03/21 10:27 Olanzapine 5 Mg Tab PO 5 mg QDAY KELSEY Administration Ondansetron HCl 4 mg 09/30/21 05:58 10/04/21 00:06 Ondansetron 4 Mg/2 Ml Inj IV 4 mg Q8H PRN Administration Nausea And Vomiting Pantoprazole Sodium 40 mg 10/02/21 10:00 10/03/21 10:28 Pantoprazole 40 Mg Tab PO 40 mg QDAY KELSEY Administration Sodium Chloride 10 ml 09/30/21 10:00 10/03/21 21:28 Sodium Chloride 0.9% 10 Ml Flush Syringe IV 10 ml BID KELSEY Administration Sodium Chloride 10 ml 09/30/21 05:58 Sodium Chloride 0.9% 10 Ml Flush Syringe IV PRN PRN LINE FLUSH Trazodone HCl 50 mg 10/02/21 22:00 10/03/21 21:25 Trazodone 50 Mg Tab PO 50 mg QHS KELSEY Administration Nutrition/Malnutrition Assess - Dietary Evaluation Nutrition/Malnutrition Findings: Nutrition Notes Start: 09/30/21 14:36 Freq: Status: Active Protocol: Document 10/02/21 10:38 FLAVIA (Rec: 10/02/21 10:58 [email or web address] [id number]) Nutrition Notes Initial or Follow up Assessment Current Diagnosis Coronary Artery Disease, Diabetes,Hypertension,Stroke, Hyperlipidemia Other Pertinent Diagnosis GERD. Current Diet Cardiac Diet (since D 09/30). Labs/Tests 10/02: Cl 107.5, CO2 21, Glu 224. Pertinent Medications 10/01: Lantus 20U, Humalog 2U, others nutritionally unremarkable. Height 5 ft 5 in Weight 66.2 kg [place] Body Weight (kg) 56.81 BMI 24.3 Weight change and time frame 1.839 Kg body weight loss in 2 days reported. Weight Status Appropriate Subjective/Other Information RD consult for routine F/U on dietary advbancement. Diet advanced to PO, No reports available on Pt's PO intake of meals at the time, will assess at F/U. Pt is on Room Air, O2 saturation @ 98%, according to Physical Assessment History notes. Pt passed bedside swallow assessment on 09/30, according to Swallow Screen notes. Percent of energy/protein needs met: Prescribed Cardiac Diet provides for energy/protein needs (2,230 Kcal/85 g) during LOS. Burn Absent Trauma Absent GI Symptoms None Food Allergy No Skin Integrity/Comment Assessment WNL. 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 No Is Patient Ambulatory and/or Out of Bed No REE-([facility]-confined to bed) 1496.220 Calculation Used for Recommend[address] [facility] Additional Notes Protein: 0.8-1 g/Kg ABW; 53-66 g/day. Fluids: 1 ml/Kcal, or as per MD. Nutrition Intervention Change Diet Order: Continue Cardiac Diet. Follow-Up By: 10/09/21 Additional Comments Continue monitoring food tolerance, %PO intake of meals , and BM.
[2021-10-04] MEDS: carvediloL 12.5 MG TAB PO SCH ×2 (10:29→21:33)
[2021-10-04] MEDS: metFORMIN 500 MG TAB PO SCH ×2 (10:29→17:22)
[2021-10-04] MEDS: MORPHINE 2 MG/1 ML INJ IV PRN (10:29)
[2021-10-04] MEDS: CLOPIDOGREL 75 MG TAB PO SCH (10:29)
[2021-10-04] MEDS: PANTOPRAZOLE 40 MG TAB PO SCH (10:29)
[2021-10-04] MEDS: amLODIPine 10 MG TAB PO SCH (10:29)
[2021-10-04] MEDS: ASPIRIN 81 MG TAB CHEW PO SCH (10:29)
[2021-10-04] MEDS: INSULIN LISPRO 100 UNIT/ML SUB-Q SCH ×4 (10:30→21:33)
[2021-10-04] MEDS: INSULIN GLARGINE 100 UNITS/ML SUB-Q SCH (21:33)
[2021-10-04] MEDS: traZODone 50 MG TAB PO SCH (21:33)
[2021-10-05] MEDS: MORPHINE 2 MG/1 ML INJ IV PRN ×2 (02:01→05:56)
[2021-10-05] MEDS: HEPARIN 5,000 UNIT/1 ML VIAL SUB-Q SCH ×2 (05:55→14:21)
[2021-10-05] MEDS: ONDANSETRON 4 MG/2 ML INJ IV PRN (05:55)
[2021-10-05] MEDS: INSULIN LISPRO 100 UNIT/ML SUB-Q SCH ×3 (07:50→16:50)
[2021-10-05] MEDS: metFORMIN 500 MG TAB PO SCH ×2 (08:41→17:22)
[2021-10-05] MEDS ORDERED: FLUCONAZOLE 200 MG TAB PO NR (08:50)
[2021-10-05] MEDS: ASPIRIN 81 MG TAB CHEW PO SCH (09:40)
[2021-10-05] MEDS: carvediloL 12.5 MG TAB PO SCH (09:41)
[2021-10-05] MEDS: CLOPIDOGREL 75 MG TAB PO SCH (09:41)
[2021-10-05] MEDS: PANTOPRAZOLE 40 MG TAB PO SCH (09:41)
[2021-10-05] MEDS ORDERED: NIFEdipine XL 30 MG TAB PO SCH (10:00)
[2021-10-05] MEDS: MORPHINE 4 MG/1 ML INJ IV PRN ×2 (10:45→17:22)
--- NOTE | 2021-10-05 13:04 | Progress Note ---
Assessment and Plan Assessment and plan: #Acute ischemic CVA #Left facial numbness Unremarkable CT head noncontrast, CT angio head and neck MRI brain with and without contrast (08/31/2021) revealing "acute infarct involving posterior left parry radiata measuring approximately 2.5 cm in greatest curvilinear dimension". TTE (09/30/2021) revealing EF 55-60% with normal-sized LV, normal LV systolic function, mild diastolic dysfunction, normal-sized RV, hypokinetic RV, unremarkable for PFO, and RVSP is 17 mmHg. Hemoglobin A1c pending. Lipid profile: Triglycerides 89, cholesterol 243, LDL 151, HDL 74. Continue aspirin 81 mg daily + Plavix 75 mg daily + Lipitor 40 mg daily Neurology consulted; appreciate recs Physical therapy and Occupational Therapy consulted; recommending subacute rehab #Depression Likely secondary to current health diagnosis Psychiatry consulted; appreciate recs Continue olanzapine 5 mg daily and trazodone 50 mg daily #Hypertension #Hyperlipidemia - home medications: Coreg 12.5 mg twice daily, amlodipine 10 mg daily, Lasix 20 mg daily, atorvastatin 40 mg daily, aspirin 81 mg daily - current medications: Atorvastatin 40 mg daily, coreg 12.5mg BID, and amlodipine 10mg daily - SBP goal <160 and DBP goal <90 while inpatient - continue to monitor #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 - hemoglobin A1c: Pending - home regimen: Metformin 1000 mg twice daily, glargine 36 units nightly - current regimen: Lantus 25 units daily + moderate SSI + metformin 1000mg BID - blood glucose goal 140-180 while inpatient - continue to monitor #CAD -Continue Plavix 75 mg daily and Lipitor 40 mg daily #GERD Continue home pantoprazole 40 mg daily #Advanced care planning -Disease education conducted, care plan discussed, diagnoses discussed, prognosis discussed, and patient acknowledges understanding with care plan -Time: +30 min #Discharge planning - Patient is pending subacute rehab authorization - Case management has been made aware. Disposition Plan: Pending placement Total Time Spent with Patient (Minutes): 30 minutes History Interval history: No acute events overnight. Hospitalist Physical - Constitutional Vitals: Temp Pulse Resp BP Pulse Ox 98.4 F 64 16 145/54 100 10/05/21 04:32 10/05/21 09:41 10/05/21 04:32 10/05/21 09:41 10/05/21 08:25 General appearance: Present: no acute distress, well-nourished - EENT Eyes: Present: PERRL, EOM intact ENT: hearing intact, clear oral mucosa, dentition normal - Neck Neck: Present: supple, normal ROM - Respiratory Respiratory effort: normal Respiratory: bilateral: CTA - Cardiovascular Rhythm: regular Heart Sounds: Present: S1 & S2 - Extremities Extremities: no ischemia, pulses intact, pulses symmetrical, No edema, normal temperature, normal color Peripheral Pulses: within normal limits - Abdominal General gastrointestinal: soft, non-tender, non-distended, normal bowel sounds - Integumentary Integumentary: Present: clear, warm, dry - Psychiatric Psychiatric: appropriate mood/affect, depressed - Neurologic Neurologic: CNII-XII intact, focal deficits (Weakness of right upper and lower extremity; mild weakness of the left lower extremity) - Allied Health Allied health notes reviewed: nursing, case management HEART Score - HEART Score Troponin: Troponin T < 0.010 ng/mL (0.00-0.029) 09/30/21 00:27 Results - Labs CBC & Chem 7: 10/01/21 06:59 10/01/21 06:59 Labs: Laboratory Last Values WBC 6.7 K/mm3 (4.5-11.0) 10/01/21 06:59 RBC 4.14 M/mm3 (3.65-5.03) 10/01/21 06:59 Hgb 11.5 gm/dl (10.1-14.3) 10/01/21 06:59 Hct 35.7 % (30.3-42.9) 10/01/21 06:59 MCV 86 fl (79-97) 10/01/21 06:59 MCH 28 pg (28-32) 10/01/21 06:59 MCHC 32 % (30-34) 10/01/21 06:59 RDW 13.0 % (13.2-15.2) L 10/01/21 06:59 Plt Count 246 K/mm3 (140-440) 10/01/21 06:59 Lymph % (Auto) 33.0 % (13.4-35.0) 10/01/21 06:59 [place] % (Auto) 5.6 % (0.0-7.3) 10/01/21 06:59 Eos % (Auto) 3.3 % (0.0-4.3) 10/01/21 06:59 Baso % (Auto) 0.2 % (0.0-1.8) 10/01/21 06:59 Lymph # (Auto) 2.2 K/mm3 (1.2-5.4) 10/01/21 06:59 [place] # (Auto) 0.4 K/mm3 (0.0-0.8) 10/01/21 06:59 Eos # (Auto) 0.2 K/mm3 (0.0-0.4) 10/01/21 06:59 Baso # (Auto) 0.0 K/mm3 (0.0-0.1) 10/01/21 06:59 Seg Neutrophils % 57.9 % (40.0-70.0) 10/01/21 06:59 Seg Neutrophils # 3.9 K/mm3 (1.8-7.7) 10/01/21 06:59 PT 12.5 Sec. (12.2-14.9) 09/30/21 01:08 INR 0.85 (0.87-1.13) L 09/30/21 01:08 APTT 28.0 Sec. (24.2-36.6) 09/30/21 01:08 Sodium 140 mmol/L (137-145) 10/01/21 06:59 Potassium 4.2 mmol/L (3.6-5.0) 10/01/21 06:59 Chloride 107.5 mmol/L (98-107) H 10/01/21 06:59 Carbon Dioxide 21 mmol/L (22-30) L 10/01/21 06:59 Anion Gap 16 mmol/L 10/01/21 06:59 BUN 15 mg/dL (7-17) 10/01/21 06:59 Creatinine 0.8 mg/dL (0.6-1.2) 10/01/21 06:59 Estimated GFR > 60 ml/min 10/01/21 06:59 BUN/Creatinine Ratio 19 % 10/01/21 06:59 Glucose 224 mg/dL (65-100) H 10/01/21 06:59 POC Glucose 126 mg/dL (70-105) H 10/05/21 12:00 Calcium 9.1 mg/dL (8.4-10.2) 10/01/21 06:59 Total Bilirubin 0.20 mg/dL (0.1-1.2) 09/29/21 18:46 AST 15 units/L (5-40) 09/29/21 18:46 ALT 13 units/L (7-56) 09/29/21 18:46 Alkaline Phosphatase 96 units/L (35-129) 09/29/21 18:46 Troponin T < 0.010 ng/mL (0.00-0.029) 09/30/21 00:27 Total Protein 7.3 g/dL (6.3-8.2) 09/29/21 18:46 Albumin 3.7 g/dL (3.9-5) L 09/29/21 18:46 Albumin/Globulin Ratio 1.0 % 09/29/21 18:46 Triglycerides 81 mg/dL (2-149) 09/30/21 19:40 Cholesterol 243 mg/dL (50-199) H 09/30/21 19:40 LDL Cholesterol Direct 151 mg/dL (50-130) H 09/30/21 19:40 HDL Cholesterol 74 mg/dL (40-59) H 09/30/21 19:40 Cholesterol/HDL Ratio 3.28 % 09/30/21 19:40 Urine Color Straw (Yellow) 09/30/21 08:52 Urine Turbidity Clear (Clear) 09/30/21 08:52 Urine pH 6.0 (5.0-7.0) 09/30/21 08:52 Ur Specific [place] 1.005 (1.003-1.030) 09/30/21 08:52 Urine Protein <30 mg dl mg/dL (Negative) 09/30/21 08:52 Urine Glucose (UA) >2000 mg/dL (Negative) 09/30/21 08:52 Urine Ketones Negative mg/dL (Negative) 09/30/21 08:52 Urine Blood Negative (Negative) 09/30/21 08:52 Urine Nitrite Positive (Negative) 09/30/21 08:52 Ur Reducing Substances Not Reportable 09/30/21 08:52 Urine Bilirubin Negative (Negative) 09/30/21 08:52 Urine Ictotest Not Reportable 09/30/21 08:52 Urine Urobilinogen < 2.0 mg/dL (<2.0) 09/30/21 08:52 Ur Leukocyte Esterase Trace (Negative) 09/30/21 08:52 Urine WBC (Auto) 9.0 /HPF (0.0-6.0) H 09/30/21 08:52 Urine RBC (Auto) 3.0 /HPF (0.0-6.0) 09/30/21 08:52 U Epithel Cells (Auto) 5.0 /HPF (0-13.0) 09/30/21 08:52 Urine Mucus Few /HPF 09/30/21 08:52 Coronavirus (PCR) Negative (Negative) 10/03/21 11:57 Franco/IV: Voiding Method External Female Catheter Active Medications - Current Medications Current Medications: Generic Name Dose Route Start Last Admin Trade Name Freq PRN Reason Stop Dose Admin Acetaminophen 650 mg 09/30/21 05:58 10/03/21 10:27 Acetaminophen 325 Mg Tab PO 650 mg Q4H PRN Administration Pain MILD(1-3)/Fever >100.5/COLLINS Albuterol 2.5 mg 09/30/21 05:58 Albuterol 2.5 Mg/3 Ml Nebu IH Q3HRT PRN Shortness Of Breath Aspirin 81 mg 09/30/21 10:00 10/05/21 09:40 Aspirin 81 Mg Tab Chew PO 81 mg QDAY KELSEY Administration Atorvastatin Calcium 40 mg 09/30/21 22:00 10/04/21 21:33 Atorvastatin 40 Mg Tab PO 40 mg QHS KELSEY Administration Carvedilol 12.5 mg 10/01/21 12:00 10/05/21 09:41 Carvedilol 12.5 Mg Tab PO 12.5 mg BID KELSEY Administration Clopidogrel Bisulfate 75 mg 09/30/21 10:00 10/05/21 09:41 Clopidogrel 75 Mg Tab PO 75 mg QDAY KELSEY Administration Dextrose 50 ml 09/30/21 08:19 Dextrose 50% In Water (25gm) 50 Ml Syringe IV Q30MIN PRN Hypoglycemia Protocol Heparin Sodium (Porcine) 5,000 unit 09/30/21 14:00 10/05/21 05:55 Heparin 5,000 Unit/1 Ml Vial SUB-Q 5,000 unit Q8HR KELSEY Administration Insulin Glargine 25 units 10/03/21 22:00 10/04/21 21:33 Insulin Glargine 100 Units/Ml SUB-Q 25 units QHS KELSEY Administration Insulin Human Lispro 0 unit 09/30/21 11:30 10/05/21 07:50 Insulin Lispro 100 Unit/Ml SUB-Q Not Given ACHS [facility] Protocol Metformin HCl 1,000 mg 10/02/21 17:00 10/05/21 08:41 Metformin 500 Mg Tab PO 1,000 mg BIDDIAB KELSEY Administration Morphine Sulfate 2 mg 09/30/21 05:58 10/05/21 05:56 Morphine 2 Mg/1 Ml Inj IV 2 mg Q4H PRN Administration Pain, Moderate (4-6) Morphine Sulfate 4 mg 09/30/21 05:58 10/05/21 10:45 Morphine 4 Mg/1 Ml Inj IV 4 mg Q4H PRN Administration Pain , Severe (7-10) Nifedipine 30 mg 10/05/21 10:00 10/05/21 09:41 Nifedipine Xl 30 Mg Tab PO 30 mg QDAY KELSEY Administration Olanzapine 5 mg 10/02/21 15:00 10/05/21 09:41 Olanzapine 5 Mg Tab PO 5 mg QDAY KELSEY Administration Ondansetron HCl 4 mg 09/30/21 05:58 10/05/21 05:55 Ondansetron 4 Mg/2 Ml Inj IV 4 mg Q8H PRN Administration Nausea And Vomiting Pantoprazole Sodium 40 mg 10/02/21 10:00 10/05/21 09:41 Pantoprazole 40 Mg Tab PO 40 mg QDAY KELSEY Administration Sodium Chloride 10 ml 09/30/21 10:00 10/05/21 09:42 Sodium Chloride 0.9% 10 Ml Flush Syringe IV 10 ml BID KELSEY Administration Sodium Chloride 10 ml 09/30/21 05:58 Sodium Chloride 0.9% 10 Ml Flush Syringe IV PRN PRN LINE FLUSH Trazodone HCl 50 mg 10/02/21 22:00 10/04/21 21:33 Trazodone 50 Mg Tab PO 50 mg QHS KELESY Administration Nutrition/Malnutrition Assess - Dietary Evaluation Nutrition/Malnutrition Findings: Nutrition Notes Start: 09/30/21 14:36 Freq: Status: Active Protocol: Document 10/02/21 10:38 FLAVIA (Rec: 10/02/21 10:58 FLAVIA [id number]) Nutrition Notes Initial or Follow up Assessment Current Diagnosis Coronary Artery Disease, Diabetes,Hypertension,Stroke, Hyperlipidemia Other Pertinent Diagnosis GERD. Current Diet Cardiac Diet (since D 09/30). Labs/Tests 10/02: Cl 107.5, CO2 21, Glu 224. Pertinent Medications 10/01: Lantus 20U, Humalog 2U, others nutritionally unremarkable. Height 5 ft 5 in Weight 66.2 kg Jesse Body Weight (kg) 56.81 BMI 24.3 Weight change and time frame 1.839 Kg body weight loss in 2 days reported. Weight Status Appropriate Subjective/Other Information RD consult for routine F/U on dietary advbancement. Diet advanced to PO, No reports available on Pt's PO intake of meals at the time, will assess at F/U. Pt is on Room Air, O2 saturation @ 98%, according to Physical Assessment History notes. Pt passed bedside swallow assessment on 09/30, according to Swallow Screen notes. Percent of energy/protein needs met: Prescribed Cardiac Diet provides for energy/protein needs (2,230 Kcal/85 g) during LOS. Burn Absent Trauma Absent GI Symptoms None Food Allergy No Skin Integrity/Comment Assessment WNL. Minimum of two criteria No Fluid Accumulation N/A Reduced Pet Walker Strength N/A (non-severe) Protein-Calorie Malnutrition N\\A #1 Nutrition Diagnosis No nutrition diagnosis at this time Is patient on ventilator? No Is Patient Ambulatory and/or Out of Bed No REE-([facility]-confined to bed) 1496.220 Calculation Used for Recommendations [facility] Additional Notes Protein: 0.8-1 g/Kg ABW; 53-66 g/day. Fluids: 1 ml/Kcal, or as per MD. Nutrition Intervention Change Diet Order: Continue Cardiac Diet. Follow-Up By: 10/09/21 Additional Comments Continue monitoring food tolerance, %PO intake of meals , and BM.
--- NOTE | 2021-10-05 14:12 | Discharge Summary ---
Providers - Providers Date of Admission: 09/30/21 05:58 Date of discharge: 10/05/21 Attending physician: SUSHILA ESPINOZA MD 09/30/21 05:58 Consult to Dietitian/Nutrition [CONS] Routine Physician Instructions: Reason For Exam: Reason for Consult: Diet education Consult to Physician [CONS] Routine Comment: Consulting Provider: TERRY DUNNE Physician Instructions: Reason For Exam: cva Occupational Therapy Evaluate and Treat [CONS] Routine Comment: Reason For Exam: Neuro deficits Physical Therapy Evaluation and Treat [CONS] Routine Comment: Reason For Exam: Neuro deficits 09/30/21 08:17 Speech Therapy Evaluation and Treat [CONS] Routine Reason For Exam: Stroke workup 10/01/21 11:26 psychiatry consult [Consult to Mental Health] [CONS] Routine Reason For Exam: Depression in patient Primary care physician: MONTESSORI TEACHER Hospitalization Reason for admission: Acute ischemic CVA Condition: Stable Pertinent studies: Reviewed. Procedures: None. Hospital course: Patient is a 60-year-old female past medical history of hypertension, insulin- dependent type 2 diabetes mellitus, hyperlipidemia, prior CVA, CAD complicated by CABG and PCI with stents, and obstructive sleep apnea who presented to the ED with acute onset of left-sided weakness when she had awaken for sleep. The patient endorsed having difficulty with medication adherence due to forgetting. When the patient presented to the ED, the patient was outside of the tPA window. The patient was also found to be hemodynamically stable but hypertensive to a max of 226/75. Patient underwent CT angio head and neck and CT head noncontrast that were found to be unremarkable. TTE (09/30/2021) revealing EF 55-60% with normal-sized LV, normal LV systolic function, mild diastolic dysfunction, normal-sized RV, hypokinetic RV, unremarkable for PFO, and RVSP is 17 mmHg. Patient underwent MRI brain with and without contrast (08/31/2021) revealing "acute infarct involving posterior left parry radiata measuring approximately 2.5 cm in the greatest curvilinear dimension". Neurology was consulted for further management. Patient was started on aspirin 81 mg daily, Plavix 75 mg daily, and Lipitor 40 mg daily. Patient was evaluated by physical therapy and Occupational Therapy who recommended subacute rehab. Patient was also evaluated by psychiatry due to and expressed desire by the patient and managing her depression. Patient was started on olanzapine 5 mg daily and trazodone 50 mg daily. Patient is medically clear for discharge, and she expresses understanding. Disposition: 01 HOME / SELF CARE / HOMELESS Final Discharge Diagnosis (Prints w/discharge instructions): Acute ischemic CVA, depression, hypertension, hyperlipidemia, insulin-dependent type 2 diabetes mellitus with hyperglycemia, CAD status post CABG and PCI, GERD Time spent for discharge: 45 min Core Measure Documentation - Palliative Care Palliative Care/ Comfort Measures: Not Applicable - Core Measures Any of the following diagnoses?: stroke - Stroke Discharge Requirements Statin for LDL = or >70 mg/dl on DC: Yes Anticoag for atrial fib/atrial flutter: Not Applicable Antithrombotic for ischemic stroke: Yes Exam - Constitutional Vitals: Temp Pulse Resp BP Pulse Ox 98.4 F 64 16 145/54 100 10/05/21 04:32 10/05/21 09:41 10/05/21 04:32 10/05/21 09:41 10/05/21 08:25 General appearance: Present: no acute distress, well-nourished - EENT Eyes: Present: PERRL, EOM intact ENT: hearing intact, clear oral mucosa, dentition normal - Neck Neck: Present: supple, normal ROM - Respiratory Respiratory effort: normal Respiratory: bilateral: CTA - Cardiovascular Rhythm: regular Heart Sounds: Present: S1 & S2 - Extremities Extremities: no ischemia, pulses intact, pulses symmetrical, No edema, normal temperature, normal color Peripheral Pulses: within normal limits - Abdominal General gastrointestinal: Present: soft, non-tender, non-distended, normal bowel sounds Female genitourinary: Present: deferred - Rectal Rectal Exam: deferred - Integumentary Integumentary: Present: clear, warm, dry - Musculoskeletal Musculoskeletal: right sided weakness - Psychiatric Psychiatric: appropriate mood/affect, cooperative, depressed - Neurologic Neurologic: CNII-XII intact - Allied Health Allied health notes reviewed: nursing Plan Activity: advance as tolerated Diet: low salt, diabetic Additional Instructions: Patient is a 60-year-old female past medical history of hypertension, insulin-dependent type 2 diabetes mellitus, hyperlipidemia, prior CVA, CAD complicated by CABG and PCI with stents, and obstructive sleep apnea who presented to the ED with acute onset of left-sided weakness when she had awaken for sleep. The patient endorsed having difficulty with medication adherence due to forgetting. When the patient presented to the ED, the patient was outside of the tPA window. The patient was also found to be hemodynamically stable but hypertensive to a max of 226/75. Patient underwent CT angio head and neck and CT head noncontrast that were found to be unremarkable. TTE (09/30/2021) revealing EF 55-60% with normal-sized LV, normal LV systolic function, mild diastolic dysfunction, normal-sized RV, hypokinetic RV, unremarkable for PFO, and RVSP is 17 mmHg. Patient underwent MRI brain with and without contrast (08/31/2021) revealing "acute infarct involving posterior left parry radiata measuring approximately 2.5 cm in the greatest curvilinear dimension". Neurology was consulted for further management. Patient was started on aspirin 81 mg daily, Plavix 75 mg daily, and Lipitor 40 mg daily. Patient was evaluated by physical therapy and Occupational Therapy who recommended subacute rehab. Patient was also evaluated by psychiatry due to and expressed desire by the patient and managing her depression. Patient was started on olanzapine 5 mg daily and trazodone 50 mg daily. Patient is medically clear for discharge, and she expresses understanding. Care Plan Goals: Patient is medically clear for discharge. Assessment: Patient is a 60-year-old female past medical history of hypertension, insulin- dependent type 2 diabetes mellitus, hyperlipidemia, prior CVA, CAD complicated by CABG and PCI with stents, and obstructive sleep apnea who presented to the ED with acute onset of left-sided weakness when she had awaken for sleep. The pa tient endorsed having difficulty with medication adherence due to forgetting. When the patient presented to the ED, the patient was outside of the tPA window. The patient was also found to be hemodynamically stable but hypertensive to a max of 226/75. Patient underwent CT angio head and neck and CT head noncontrast that were found to be unremarkable. TTE (09/30/2021) revealing EF 55-60% with normal-sized LV, normal LV systolic function, mild diastolic dysfunction, normal-sized RV, hypokinetic RV, unremarkable for PFO, and RVSP is 17 mmHg. Patient underwent MRI brain with and without contrast (08/31/2021) revealing "acute infarct involving posterior left parry radiata measuring approximately 2.5 cm in the greatest curvilinear dimension". Neurology was consulted for further management. Patient was started on aspirin 81 mg daily, Plavix 75 mg daily, and Lipitor 40 mg daily. Patient was evaluated by physical therapy and Occupational Therapy who recommended subacute rehab. Patient was also evaluated by psychiatry due to and expressed desire by the patient and managing her depression. Patient was started on olanzapine 5 mg daily and trazodone 50 mg daily. Patient is medically clear for discharge, and she expresses understanding. Follow up with: PRIMARY CARE, [Primary Care Provider] - 3-5 Days SUSHMA NOVAK MD [Staff Physician] - 7 Days SHAKILA BAIG MD [Staff Physician] - 14 Days Prescriptions: traZODone [Desyrel] 50 mg PO QHS #30 tablet AtorvaSTATin [Lipitor] 40 mg PO QHS #30 tablet Aspirin [Aspirin BABY CHEW TAB] 325 mg PO QDAY #30 tab.chew carvediloL [Coreg] 12.5 mg PO BID #60 tablet metFORMIN [Glucophage] 1,000 mg PO BID #120 tablet Clopidogrel [Plavix] 75 mg PO QDAY #30 tablet NIFEdipine XL [Procardia Xl] 30 mg PO QDAY #30 tablet Pantoprazole [Protonix TAB] 40 mg PO QDAY #30 tablet OLANzapine [ZyPREXA] 5 mg PO QDAY #30 tablet
[2021-10-05 19:06] VITALS: BP 145/78
== END 2021-10-05 19:20 | DRG 64 ==
LOC: ED 15:54 → 4A 09-30 05:58
PROVIDERS: ADMIT Hospitalist; ATTEND Student in an Organized Health Care Education/Training Program
DX: I63.9 Cerebral infarction, unspecified (principal); I77.71 Dissection of carotid artery; G81.94 Hemiplegia, unspecified affecting left nondominant side; I10 Essential (primary) hypertension; I25.10 Atherosclerotic heart disease of native coronary artery without angina pectoris; Z20.822 Contact with and (suspected) exposure to COVID-19; E78.00 Pure hypercholesterolemia, unspecified; R26.81 Unsteadiness on feet; E11.65 Type 2 diabetes mellitus with hyperglycemia; E78.5 Hyperlipidemia, unspecified; F31.9 Bipolar disorder, unspecified; K21.9 Gastro-esophageal reflux disease without esophagitis; Z88.2 Allergy status to sulfonamides; Z95.1 Presence of aortocoronary bypass graft; Z88.8 Allergy status to other drugs, medicaments and biological substances; Z91.040 Latex allergy status; Z79.82 Long term (current) use of aspirin; Z79.4 Long term (current) use of insulin; Z82.49 Family history of ischemic heart disease and other diseases of the circulatory system
CPT/HCPCS: 36415; 70450; 70496; 70498; 70553; 72156; 74176; 80048; 80053; 80061; 81001; 82962; 84484; 85025; 85610; 85730; 87086; 93005; 93306; 94640; G0378; J3490; Q9967; A9575; C8929; J1644; J1815; J2060; J2270; J2405; J7030; U0003